=== PATIENT | male | born 1975 | race Caucasian/White ===

== ENCOUNTER 2016-07-27 17:55 | Emergency (ER) | payer BC ==
[~2016-07-27] VITALS: Ht 190.5 cm; Wt 90.9 kg
[~2016-07-27 17:55] MED LIST: HYDR-971 PO
[2016-07-27 18:06] VITALS: BP 140/80
--- NOTE | 2016-07-27 18:32 | PHYS DOC ---
General Chief Complaint: DENTAL PROBLEM Stated Complaint: FACIAL SWELLING Time Seen by MD: 18:24 Source: patient, family Problems: History of Present Illness Initial Comments Patient here for right jaw swelling. Patient says his been present for day and a half. Is getting worse today. Patient does have poor dentition but can't tell if this is a toothache. He says he has increasing pain in the area as well. He has not had any fever or chills. He's had no runny nose or sore throat. He has no earache. He says he does have trouble swallowing or talking, however. He says he has not really been able to eat his been able to drink a small amount of fluids. He says it hurts when he swallows. He denies any neck pain. There's no chest pain or shortness of breath and no nausea or vomiting. According to his , they try to contact with primary care physician a dentist without help today. He's taken ibuprofen at home without help. There is no other increasing or decreasing factors noted. Patient's past nuchal history is remarkable for thyroid cancer. He apparently had what sounds like a nodule removal, but they say "they didn't get it all." He is not currently receiving any chemotherapy or radiation. He is on thyroxine. He smokes a pack of cigarettes daily. He is a nonuser of ethanol. Allergies: Coded Allergies: cyclobenzaprine (Verified Allergy, Unknown, 12/06/15) morphine (Verified Allergy, Unknown, 12/06/15) tramadol (Verified Allergy, Unknown, 12/06/15) Past Medical History Medical History: other Social History Smoker: greater than 1 pack/day Alcohol: none Review of Systems Constitutional: no symptoms reported EENTM: see HPI Respiratory: no symptoms reported Cardiovascular: no symptoms reported Gastrointestinal: no symptoms reported Psychiatric/Neurological: no symptoms reported Physical Exam General Appearance: WD/WN, no apparent distress Ear, Nose, Throat: normal ENT inspection, normal pharynx, other Neck: full range of motion, supple, normal inspection Respiratory: lungs clear, normal breath sounds, no respiratory distress Cardiovascular: regular rate, rhythm, no edema Skin: normal color Lymphatic: no adenopathy Comments Generally this well-developed well-nourished white male in no acute distress. Vitals are as noted. Pertinent findings on physical exam shows ears and throat to be grossly clear. Patient does have some soft tissue swelling and some tenderness over the right mid mandibular region. The patient has very few teeth remaining. Of these, he has grossly carious right lateral incisor, canine, and premolars remaining. These are all tender to tap. There is no signs of periapical abscess. He has central incisor is moderately carious as well. The patient is otherwise, with the exception of a single incisor and left lower jaw , edentulous. There is no dysphagia or dysphonia or problems with secretions noted. Neck is supple and nontender. There is no firmness to the floor the mouth. There is no evidence of bleed weeks. There is no adenopathy. Remainder of physical exam is clinically unremarkable. Orders, Labs, Meds Old charts note occasional ER visits for heel contusion, right arm complaints, and neck pain. I discussed with the patient and the female within most likely diagnosis of dental pain. We'll go and get her started on some appropriate antibiotic. He claims to be allergic to morphine, codeine, tramadol, Toradol. I discussed with the patient and his that this might be difficult to provide some appropriate pain medicine, but I will write a prescription for Demerol tablets. Also started on some penicillin. They do voice understanding need for dental follow-up cannot provide definitive care here in the ED. Patient may certainly return to the ER sooner as needed if worsen anyway. Patient otherwise looks well , in no acute discomfort distress, okay for discharge home at this time. ARLENE LEVIN MD Jul 27, 2016 18:32
== END 2016-07-27 18:42 | disposition home or self-care (01) ==
LOC: ER 17:55
DX: K08.89 Other specified disorders of teeth and supporting structures (principal); R22.0 Localized swelling, mass and lump, head; R13.10 Dysphagia, unspecified; F17.210 Nicotine dependence, cigarettes, uncomplicated; Z88.5 Allergy status to narcotic agent; Z88.6 Allergy status to analgesic agent; Z88.8 Allergy status to other drugs, medicaments and biological substances
CPT/HCPCS: 99283

== ENCOUNTER 2017-02-26 18:51 | Emergency (ER) | payer BC ==
[~2017-02-26] VITALS: Ht 190.5 cm; Wt 90.9 kg
[2017-02-26] MEDS ORDERED: HYDROcodone/APAP 7.5/325MG 1 TAB TABLET PO ONE (19:30)
[2017-02-26 19:34] VITALS: BP 131/93
[2017-02-26] MEDS ORDERED: HYDR-971 PO (20:04)
--- NOTE | 2017-02-26 20:06 | PHYS DOC ---
General Chief Complaint: MECHANICAL FALL Stated Complaint: FALL Time Seen by MD: 19:16 Source: patient Exam Limitations: no limitations Problems: History of Present Illness Initial Comments Patient is a 41-year-old male who comes to the ED complaining of fall injuries. Patient states he was descending a ladder when he missed a step causing him to fall to his back. He states he was only 1-2 rungs from the bottom at the time of fall. He denies head trauma no headache or loss of consciousness he is having some lower neck discomfort primarily located in the right trapezius muscle but there is some in the midline. No swelling or ecchymosis no arm weakness or numbness tingling or radiating discomfort. He also complains of some right shoulder discomfort which is related to the right trapezius muscle as well. Finally he complains of some pain in his tailbone but states this is minimal. He denies low back pain no leg symptoms no saddle anesthesia and no bowel or bladder symptoms. After thorough discussion of his injuries patient is only wanting any imaging done of his neck he states his other complaints are minor. Occurred: this afternoon Severity: moderate Injuries/Pain Location: neck, upper extremity, other Context: slipped Loss of Consciousness: no loss of consciousness Modifying Factors: worse with jarring, worse with movement Associated Symptoms: neck pain, other Allergies: Coded Allergies: cyclobenzaprine (Verified Allergy, Unknown, 12/06/15) ketorolac (Verified Allergy, Unknown, Itching, 02/26/17) morphine (Verified Allergy, Unknown, 12/06/15) tramadol (Verified Allergy, Unknown, 12/06/15) Past Medical History Medical History: other (thyroid cancer) Surgical History: other Social History Smoker: cigarettes Alcohol: none Drugs: none Review of Systems Constitutional: denies chills, denies diaphoresis, denies fever, denies malaise Eyes: denies inflammation, denies photophobia Ears, Nose, Mouth, Throat: denies ear pain, denies ear discharge, denies nose discharge, denies epistaxis Respiratory: denies cough, denies shortness of breath Cardiovascular: denies chest pain, denies palpitations, denies syncope Gastrointestinal: denies abdominal pain, denies nausea, denies vomiting Musculoskeletal: see HPI Psychiatric/Neurological: see HPI Physical Exam General Appearance: WD/WN, no apparent distress Head: no evidence of injury (normocephalic atraumatic negative An sign negative raccoon eyes) Eyes: bilateral eye normal inspection, bilateral eye PERRL, bilateral eye EOMI Ears, Nose, Mouth, Throat: hearing grossly normal, no evidence of ENT injury, no dental injury (very poor dentition, no ear or nose discharge no fluid behind TMs bilaterally) Neck: normal alignment, paraspinous muscle tender, stiff neck Cardiovascular/Respiratory: normal peripheral pulses, normal breath sounds Gastrointestinal: non tender, soft Back: no CVA tenderness, no vertebral tenderness Extremities: no evidence of injury, normal range of motion, non-tender Neurologic/Psychiatric: cardiovascular specialist II-XII nml as tested, no motor/sensory deficits, alert, normal mood/affect, oriented x 3 Mario Coma Score Best Eye Response: (4) open spontaneously Best Verbal Response: (5) oriented Best Motor Response: (6) obeys commands Hines Total: 15 Orders, Labs, Meds Cervical spine: No acute osseous abnormality interpreted by Dr. Tervizo. Departure Time of Disposition: 20:04 Disposition: 01 HOME, SELF-CARE Diagnosis: Fall, Cervical Strain, R Shoulder Strain Condition: GOOD Patient Instructions: Cervical Strain and Sprain with Rehab-SportsMed, Fall Prevention and Home Safety, [id number], RICE - Routine Care for Injuries, Easy -to-Read Additional Instructions: RICE, see handout. Keep activity to "pain-free." Wear sling until doctor follow up. Rx: norco 5mg #15 Take meds with food. Follow up with Dr Akers later this week. Return to ED with new or changing symptoms. ELIZABETH TREVIZO DO Feb 26, 2017 20:06
--- NOTE | 2017-02-27 08:19 | RAD ---
Cervical spine, 3 views, 02/26/2017: History: Fall, cervical pain No fracture or dislocation is identified. There is mild disc space narrowing at C5-6. The prevertebral soft tissues are unremarkable. IMPRESSION: No acute cervical spine abnormality is detected.
== END 2017-02-26 20:34 | disposition home or self-care (01) ==
LOC: ER 18:51
DX: S16.1XXA Strain of muscle, fascia and tendon at neck level, initial encounter (principal); S46.911A Strain of unspecified muscle, fascia and tendon at shoulder and upper arm level, right arm, initial encounter; F17.210 Nicotine dependence, cigarettes, uncomplicated; Z88.5 Allergy status to narcotic agent; Z88.6 Allergy status to analgesic agent; Z88.8 Allergy status to other drugs, medicaments and biological substances; W11.XXXA Fall on and from ladder, initial encounter; Y93.89 Activity, other specified; Y99.8 Other external cause status; Y92.89 Other specified places as the place of occurrence of the external cause
CPT/HCPCS: 72040; 99284

== ENCOUNTER 2017-03-12 19:34 | Emergency (ER) | payer SELFPAY ==
[~2017-03-12] VITALS: Ht 190.5 cm; Wt 86.2 kg
--- NOTE | 2017-03-12 19:52 | ED.ADGEN ---
Past History Past Medical History: Cancer, Constipation, Hypothyroid Past Surgical History: Cancer Surgery, Other Alcohol Use: None Drug Use: None Adult General Chief Complaint Chief Complaint " I get constipation,.. bowel obstruction because of back up stool..." HPI HPI Patient is a 41 year old male who presents with above hx and complaints. constipation and obstipation. Hx Hypothyroid. Follows with Dr. Akers. Ate today small amount. Produced only few small hard stool balls that he had to manually remove. Review of Systems Review of Systems Constitutional: Denies fever or chills [] Eyes: Denies change in visual acuity, redness, or eye pain [] HENT: Denies nasal congestion or sore throat [] Respiratory: Denies cough or shortness of breath [] Cardiovascular: No additional information not addressed in HPI [] GI: Complaints of abdominal pain, nausea, and constipation : Denies dysuria or hematuria [] Musculoskeletal: Denies back pain or joint pain [] Integument: Denies rash or skin lesions [] Neurologic: Denies headache, focal weakness or sensory changes [] Endocrine: Denies polyuria or polydipsia [] All other systems were reviewed and found to be within normal limits, except as documented in this note. Family History Family History Noncontributory Current Medications Current Medications Current Medications Medications (Trade) Dose Ordered Sig/Jermaine Start Time Stop Time Status Last Admin Dose Admin Famotidine (Pepcid Vial) 20 mg 1X ONCE 03/12/17 20:45 03/12/17 20:46 DC 03/12/17 21:08 20 MG Lactated Ringer's 1,000 ml @ 1,000 mls/hr Q1H 03/12/17 20:45 03/12/17 20:52 DC 03/12/17 20:52 1,000 MLS/HR Magnesium Citrate (Citroma) 296 ml 1X ONCE 03/12/17 20:45 03/12/17 20:46 DC 03/12/17 21:09 296 ML Ondansetron HCl (Zofran) 8 mg 1X ONCE 03/12/17 20:45 03/12/17 20:46 DC 03/12/17 21:07 8 MG Allergies Allergies Allergies Coded Allergies Type Severity Reaction Last Updated Verified cyclobenzaprine Allergy Unknown 12/06/15 Yes ketorolac Allergy Unknown Itching 02/26/17 Yes morphine Allergy Unknown 12/06/15 Yes tramadol Allergy Unknown 12/06/15 Yes Physical Exam Physical Exam Constitutional: Well developed, well nourished, no acute distress, non-toxic appearance. [] HENT: Normocephalic, atraumatic, bilateral external ears normal, oropharynx moist, no oral exudates, nose normal. [] Eyes: PERRLA, EOMI, conjunctiva normal, no discharge. [] Neck: Normal range of motion, no tenderness, supple, no stridor. [] Cardiovascular:Heart rate regular rhythm, no murmur [] Lungs & Thorax: Bilateral breath sounds clear to auscultation [] Abdomen: Bowel sounds decreased, soft, generalized tenderness, no masses, no pulsatile masses. Distended. Rectal exam no gross blood. Hard stool noted. Skin: Warm, dry, no erythema, no rash. [] Back: No tenderness, no CVA tenderness. [] Extremities: No tenderness, no cyanosis, no clubbing, ROM intact, no edema. [] No psoas or obturator sign Neurologic: Alert and oriented X 3, normal motor function, normal sensory function, no focal deficits noted. [] Psychologic: Affect normal, judgement normal, mood normal. [] Current Patient Data Vital Signs Vital Signs Date Time Temp Pulse Resp B/P (MAP) Pulse Ox O2 Delivery O2 Flow Rate FiO2 03/12/17 21:30 70 16 128/66 (86) 97 Room Air 03/12/17 19:55 98.1 Lab Results Laboratory Tests Test 03/12/17 20:49 White Blood Count 9.0 x10^3/uL (4.0-11.0) Red Blood Count 4.61 x10^6/uL (4.30-5.70) Hemoglobin 14.8 g/dL (13.0-17.5) Hematocrit 42.5 % (39.0-53.0) Mean Corpuscular Volume 92 fL (79-100) Mean Corpuscular Hemoglobin 32 pg (25-35) Mean Corpuscular Hemoglobin Concent 35 g/dL (31-37) Red Cell Distribution Width 13.6 % (11.5-14.5) Platelet Count 199 x10^3/uL (140-400) Neutrophils (%) (Auto) 70 % (31-73) Lymphocytes (%) (Auto) 20 % (24-48) L Monocytes (%) (Auto) 7 % (0-9) Eosinophils (%) (Auto) 3 % (0-3) Basophils (%) (Auto) 1 % (0-3) Neutrophils # (Auto) 6.3 x10^3uL (1.8-7.7) Lymphocytes # (Auto) 1.8 x10^3/uL (1.0-4.8) Monocytes # (Auto) 0.6 x10^3/uL (0.0-1.1) Eosinophils # (Auto) 0.2 x10^3/uL (0.0-0.7) Basophils # (Auto) 0.0 x10^3/uL (0.0-0.2) Prothrombin Time 10.7 SEC (9.4-11.4) Prothrombin Time INR 1.0 (0.9-1.1) PTT 28 SEC (23-33) Urine Collection Type Void Urine Color Yellow Urine Clarity Clear Urine pH 6.5 Urine Specific [place] 1.020 Urine Protein Neg (NEG-TRACE) Urine Glucose (UA) Neg mg/dL (NEG) Urine Ketones (Stick) Neg mg/dL (NEG) Urine Blood Neg (NEG) Urine Nitrite Neg (NEG) Urine Bilirubin Neg (NEG) Urine Urobilinogen Dipstick 0.2 mg/dL (0.2 mg/dL) Urine Leukocyte Esterase Neg (NEG) Urine RBC Rare /HPF (0-2) Urine WBC Occ /HPF (0-4) Urine Squamous Epithelial Cells None /LPF Urine Bacteria 0 /HPF (0-FEW) Urine Mucus Slight /LPF Sodium Level 140 mmol/L (136-145) Potassium Level 3.9 mmol/L (3.5-5.1) Chloride Level 102 mmol/L (98-107) Carbon Dioxide Level 32 mmol/L (21-32) Anion Gap 6 (6-14) Blood Urea Nitrogen 12 mg/dL (8-26) Creatinine 1.0 mg/dL (0.7-1.3) Estimated GFR (Cockcroft-Gault) 83.2 Glucose Level 97 mg/dL (70-99) Calcium Level 9.1 mg/dL (8.5-10.1) Total Bilirubin 0.4 mg/dL (0.2-1.0) Direct Bilirubin 0.1 mg/dL (0.0-0.2) Aspartate Amino Transferase (AST) 20 U/L (15-37) Alanine Aminotransferase (ALT) 33 U/L (16-63) Alkaline Phosphatase 89 U/L (46-116) Total Protein 7.9 g/dL (6.4-8.2) Albumin 4.0 g/dL (3.4-5.0) Amylase Level 39 U/L (25-115) Lipase 142 U/L (73-393) Urine Opiates Screen Pos (NEG) Urine Methadone Screen Neg (NEG) Urine Barbiturates Neg (NEG) Urine Phencyclidine Screen Neg (NEG) Urine Amphetamine/Methamphetamine Neg (NEG) Urine Benzodiazepines Screen Neg (NEG) Urine Cocaine Screen Neg (NEG) Urine Cannabinoids Screen Neg (NEG) Urine Ethyl Alcohol Neg (NEG) EKG EKG [] Radiology/Procedures Radiology/Procedures My interpretation of abdomen film shows no free air in the diaphragm. Does have extensive stool throughout the colon. Nonspecific bowel gas pattern.[] Course & Med Decision Making Course & Med Decision Making Pertinent Labs and Imaging studies reviewed. (See chart for details). Patient to stay on a clear fluid diet only for the next 2 days. Do not resume a solid diet or milk products until passing stool. Continue the MiraLAX daily if not having adequate stools. Tylenol for discomfort. Follow-up primary care. Consider GI consult. Expect some cramping and diarrhea with the mag citrate tonight. [] Final Impression Final Impression 1. Constipation[]/ Obstipation 2. Abdomen Pain 3. Hypothyroid Problems: Dragon Disclaimer Dragon Disclaimer This electronic medical record was generated, in whole or in part, using a voice recognition dictation system. VIGNESH AKINS MD Mar 12, 2017 19:52
[2017-03-12] MEDS ORDERED: FAMOTIDINE 20 MG/2 ML VIAL IVP ONE (20:45)
[2017-03-12] MEDS ORDERED: MAGNESIUM CITRATE 296 ML SOLUTION. PO ONE (20:45)
[2017-03-12] MEDS ORDERED: ONDANSETRON PF 4 MG/2 ML VIAL. IV ONE (20:45)
[2017-03-12] MEDS ORDERED: IV RINGERS SOLUTION,LACTATED 1,000 ML IV SCH (20:45)
[2017-03-12 21:09] LABS: BASO % 1 % (0-3); EOS # 0.2 x10^3/uL (0.0-0.7); EOS % 3 % (0-3); HEMATOCRIT 42.5 % (39.0-53.0); HEMOGLOBIN 14.8 g/dL (13.0-17.5); LYMPH # 1.8 x10^3/uL (1.0-4.8); LYMPH % 20 % (24-48); MEAN CORPUSCULAR HEMOGLOBIN 32 pg (25-35); MEAN CORPUSCULAR HGB CONC 35 g/dL (31-37); MEAN CORPUSCULAR VOLUME 92 fL (79-100); MONO # 0.6 x10^3/uL (0.0-1.1); MONO % 7 % (0-9); NEUT # 6.3 x10^3uL (1.8-7.7); NEUT % 70 % (31-73); PLATELET COUNT 199 x10^3/uL (140-400); RED BLOOD COUNT 4.61 x10^6/uL (4.30-5.70); RED CELL DISTRIBUTION WIDTH 13.6 % (11.5-14.5)
[2017-03-12 21:19] LABS: AMPHETAMINE/METHAMPHETAMINE NEG (NEG); BARBITURATES NEG (NEG); BENZODIAZEPINES NEG (NEG); CANNABINOIDS NEG (NEG); COCAINE NEG (NEG); METHADONE NEG (NEG); OPIATES POS (NEG); PHENCYCLIDINE NEG (NEG)
[2017-03-12 21:21] LABS: BILIRUBIN,URINE NEG (NEG); CLARITY,URINE CLEAR; COLOR,URINE YELLOW; GLUCOSE,URINE NEG (NEG)
[2017-03-12 21:22] LABS: CALCIUM 9.1 mg/dL (8.5-10.1); DIRECT BILIRUBIN 0.1 mg/dL (0.0-0.2); GFR 83.2; POTASSIUM 3.9 mmol/L (3.5-5.1); TOTAL BILIRUBIN 0.4 mg/dL (0.2-1.0); TOTAL PROTEIN 7.9 g/dL (6.4-8.2)
[2017-03-12 21:23] LABS: BACTERIA,URINE 0 /HPF (0-FEW); NITRITE,URINE NEG (NEG); RBC,URINE RARE /HPF (0-2); UROBILINOGEN,URINE 0.2 mg/dL (0.2 mg/dL); WBC,URINE OCC /HPF (0-4)
[2017-03-12 21:30] VITALS: BP 128/66
[2017-03-12] MEDS ORDERED: POLY119P4 PO (21:45)
--- NOTE | 2017-03-13 08:17 | RAD ---
Acute abdominal series Indication: Abdominal pain, constipation. Technique: Acute abdomen series Comparison: None Findings: Median sternotomy. Heart is normal in size. Lungs are clear. No pneumothorax or pleural effusion. No evidence of free intraperitoneal air. The contours of solid abdominal organs are within normal limits. No abnormally dilated bowel loops or air-fluid levels. No abnormal calcific densities projecting over the kidneys or expected course of the ureter. Visualized osseous structures are within normal limits. Moderate diffuse colonic stool burden. Impression: No abnormally dilated bowel loops to suggest bowel obstruction. Moderate colonic stool burden, patient may be constipated.
== END 2017-03-12 22:05 | disposition home or self-care (01) ==
LOC: ER 19:34
DX: K59.00 Constipation, unspecified (principal); R10.84 Generalized abdominal pain; E03.9 Hypothyroidism, unspecified; Z88.6 Allergy status to analgesic agent; Z88.5 Allergy status to narcotic agent; Z88.8 Allergy status to other drugs, medicaments and biological substances
CPT/HCPCS: 36415; 74022; 80048; 80076; 80307; 81001; 82150; 83690; 85025; 85610; 85730; 96361; 96374; 96375; 99285; J2405; J7120; S0028; G0479

== ENCOUNTER 2017-07-03 02:03 | Emergency (ER) | payer OTHER ==
[~2017-07-03] VITALS: Ht 190.5 cm; Wt 90.9 kg
[~2017-07-03 02:03] MED LIST changes: +POLY119P4 PO
--- NOTE | 2017-07-03 02:46 | PHYS DOC ---
Past History Past Medical History: Cancer, Constipation, Hypothyroid Past Surgical History: Cancer Surgery Alcohol Use: None Drug Use: None Adult General Chief Complaint Chief Complaint: HAND PROBLEM HPI HPI Patient is a 42-year-old gentleman who presents here today secondary to pain to his left hand. Patient reports he was on a put in a window and when the morning with his friend and is from the door window and it slammed on his left hand around his second and third knuckles. Patient has no other complaints. Patient' s tetanus status up-to-date. Patient has some abrasions to his hand that are superficial. Review of systems: Constitutional: Denies fever or chills Eyes: Denies change in visual acuity, redness, or eye pain HENT: Denies nasal congestion or sore throat Respiratory: Denies cough or shortness of breath All other systems were reviewed and found to be within normal limits, except as documented in this note. Physical exam: Constitutional: Well developed, well nourished, no acute distress, non-toxic appearance. HENT: Normocephalic, atraumatic, bilateral external ears normal, nose normal. Eyes: PERRLA, EOMI, conjunctiva normal, no discharge. Neck: Normal range of motion, no tenderness, supple, no stridor. Cardiovascular: Heart rate regular rhythm, Lungs & Thorax: Bilateral breath sounds clear to auscultation Abdomen: No abdominal distention. Skin: Warm, dry, no erythema, no rash. Back: Normal spinal curvature Extremities: No tenderness, no cyanosis, no clubbing, ROM intact, no edema. Neurologic: Alert and oriented X 3, normal motor function, normal sensory function, no focal deficits noted. Psychologic: Affect normal, judgement normal, mood normal. Patient's ER physical exam was most remarkable: Soft tissue swelling of left hand over the second and third knuckles. x-ray as interpreted by ER physician reveals: No acute fracture dislocation of left hand Assessment and plan: 1. 42-year-old gentleman who presents here today secondary to hand injury. Patient's x-rays negative for acute fracture. Patient has soft tissue swelling was likely to contusion. Patient reports took ibuprofen at home already. Patient be discharged home with a splint to assist with the pain and follow-up with his primary care physician. Appendicitis up-to-date Allergies Allergies Allergies Coded Allergies Type Severity Reaction Last Updated Verified cyclobenzaprine Allergy Unknown 12/06/15 Yes ketorolac Allergy Unknown Itching 02/26/17 Yes morphine Allergy Unknown 12/06/15 Yes tramadol Allergy Unknown 12/06/15 Yes EKG EKG [] Radiology/Procedures Radiology/Procedures [] Course & Med Decision Making Course & Med Decision Making Pertinent Labs and Imaging studies reviewed. (See chart for details) [] Dragon Disclaimer Dragon Disclaimer This electronic medical record was generated, in whole or in part, using a voice recognition dictation system. Departure Departure: Impression: Primary Impression: Contusion of left hand Disposition: HOME, SELF-CARE Condition: IMPROVED Referrals: RISHI JORGENSEN MD (PCP) Patient Instructions: Hand Contusion Additional Instructions: Continue taking ibuprofen as needed for pain. Wear your Velcro splint as needed for comfort. YUNG SEGURA MD Jul 03, 2017 02:46
[2017-07-03 02:50] VITALS: BP 128/84
--- NOTE | 2017-07-03 07:14 | RAD ---
Left hand, 3 views, 07/03/2017: History: Hand injury, pain No acute fracture or dislocation is identified. IMPRESSION: No acute bony abnormality is detected.
== END 2017-07-03 02:58 | disposition home or self-care (01) ==
LOC: ER 02:03
DX: S60.222A Contusion of left hand, initial encounter (principal); E03.9 Hypothyroidism, unspecified; Z88.6 Allergy status to analgesic agent; Z88.5 Allergy status to narcotic agent; Z88.8 Allergy status to other drugs, medicaments and biological substances; W22.8XXA Striking against or struck by other objects, initial encounter; Y93.89 Activity, other specified; Y99.8 Other external cause status; Y92.89 Other specified places as the place of occurrence of the external cause
CPT/HCPCS: 73130; 99284

== ENCOUNTER 2017-08-29 12:31 | Emergency (ER) | payer OTHER ==
[~2017-08-29] VITALS: Ht 190.5 cm; Wt 88.0 kg
[2017-08-29 12:49] VITALS: BP 129/81
--- NOTE | 2017-08-29 13:15 | RAD ---
INDICATION: Hand pain, caught in a door. TECHNIQUE: 3 views of the left hand are submitted for review. Comparison is from July 03, 2017. FINDINGS:There is no fracture or dislocation. There is no soft tissue swelling. IMPRESSION: Negative for fracture. Electronically signed by: Sarmad Mcpherson MD (08/29/2017 1:12 PM) [id number]
--- NOTE | 2017-08-29 13:28 | PHYS DOC ---
Past History Past Medical History: Cancer Past Surgical History: Other Alcohol Use: None Drug Use: None Adult General Chief Complaint Chief Complaint: HAND Injury HPI HPI 42 yo patient presents the emergency department after injuring his hand for 5 days ago by catching it in a car door. He has a pain in his hand that is sharp shooting and without alleviating factors. He reports normal sensation and motor function of the hand. He reports his finger is a little "off". Review of systems is negative for any wrist or elbow pain proximally. He denies chest pain or shortness of breath. All other review of systems is negative unless otherwise noted in history of present illness. ED course: 42-year-old male presenting after injuring his hand in a car door. On examination, the patient has good strength on abduction and adduction of the left fifth phalanx. The patient has normal flexion and extension at the metacarpophalangeal joint, distal interphalangeal joint and proximal interphalangeal joint independently. The patient's fifth phalanx mildly deviates to the ulnar side more when compared to his right hand. When the patient closes his fist all of his fingernails point to the scaphoid congruently and in parallel. There is no laxity in the fifth finger in any direction at the metacarpophalangeal joint or distal or proximal interphalangeal joint. X-rays were obtained which showed no acute fracture or dislocation. The patient has been examined and was not found to have an emergency medical condition. The patient was then discharged home in stable condition to follow up with their primary care physician over the next 2-3 days. They were to return if their symptoms worsened or if they were concerned for any reason. [id number] discharge instructions and return precautions were given. Patient's questions were answered to their satisfaction. Patient is comfortable with plan. Review of Systems Review of Systems SEE ABOVE. Allergies Allergies Allergies Coded Allergies Type Severity Reaction Last Updated Verified cyclobenzaprine Allergy Unknown 12/06/15 Yes ketorolac Allergy Unknown Itching 02/26/17 Yes morphine Allergy Unknown 12/06/15 Yes tramadol Allergy Unknown 12/06/15 Yes Physical Exam Physical Exam SEE ABOVE Constitutional: Well developed, well nourished, no acute distress, non-toxic appearance. HENT: Normocephalic, atraumatic, bilateral external ears normal, oropharynx moist, no oral exudates, nose normal. [] Eyes: PERRLA, EOMI, conjunctiva normal, no discharge. [] Neck: Normal range of motion, no tenderness, supple, no stridor. Cardiovascular:Heart rate regular rhythm, no murmur [] Lungs & Thorax: Bilateral breath sounds clear to auscultation [] Abdomen: Bowel sounds normal, soft, no tenderness, no masses, no pulsatile masses. Skin: Warm, dry, no erythema, no rash. [] Back: No tenderness, no CVA tenderness. Extremities: see above , patient's left hand has normal motor and sensory function. 2 second cap refill. No deformity lacerations abrasions or ecchymosis. Neurologic: Alert and oriented X 3, normal motor function, normal sensory function, no focal deficits noted. [] Psychologic: Affect normal, judgement normal, mood normal. [] Current Patient Data Vital Signs Vital Signs Date Time Temp Pulse Resp B/P (MAP) Pulse Ox O2 Delivery O2 Flow Rate FiO2 18 12:49 97.1 71 18 129/81 (97) 98 Room Air EKG EKG [] Radiology/Procedures Radiology/Procedures [] Course & Med Decision Making Course & Med Decision Making Pertinent Labs and Imaging studies reviewed. (See chart for details) [] Dragon Disclaimer Dragon Disclaimer This electronic medical record was generated, in whole or in part, using a voice recognition dictation system. Departure Departure: Impression: Primary Impression: Left hand pain Disposition: HOME, SELF-CARE Condition: STABLE Referrals: RISHI JORGENSEN MD (PCP) Patient Instructions: Hand Injuries, [id number] Additional Instructions: Thank you for allowing us to participate in your care today. Followup with your primary care physician in 3 days if your symptoms do not improve. Call your Primary Doctor tomorrow and inform them of your visit today. If you do not have a primary care provider you can ask for a list of our primary care providers. Return to the emergency department you have any new or concerning findings. This should be evaluated by the primary care physician and any necessary consulting services for continued management within a few days after discharge. Return to emergency room if you have any new or concerning symptoms including but not limited to fever, chills, nausea, vomiting, intractable pain, any new rashes, chest pain, shortness of air, uncontrolled bleeding, difficulty breathing, and/or vision loss. If at any time, you are having difficulty getting into your primary care doctor or a specialist, return to the emergency department. MONTSE RODRIGUEZ MD August 29, 2017 13:28
== END 2017-08-29 13:34 | disposition home or self-care (01) ==
LOC: ER 12:31
DX: M79.642 Pain in left hand (principal); Z88.8 Allergy status to other drugs, medicaments and biological substances; Z88.5 Allergy status to narcotic agent; Z88.6 Allergy status to analgesic agent; W23.0XXA Caught, crushed, jammed, or pinched between moving objects, initial encounter; Y93.89 Activity, other specified; Y99.8 Other external cause status; Y92.89 Other specified places as the place of occurrence of the external cause
CPT/HCPCS: 73130; 99284

== ENCOUNTER 2017-09-24 18:00 | Emergency (ER) | payer OTHER ==
[~2017-09-24] VITALS: Ht 190.5 cm; Wt 90.9 kg
--- NOTE | 2017-09-24 18:17 | ED.ADGEN ---
Past History Past Medical History: Cancer Past Surgical History: Other Alcohol Use: None Drug Use: None Adult General Chief Complaint Chief Complaint " .. I have bad teeth.. I know.. but I have not been able to get in to get them pulled.." HPI HPI Patient is a 42 year old male who presents with above hx and dental pain patient has several incisor teeth that are rotten to the gums. These areas of most discomfort. Patient currently rating his pain as 8 out of 10. Has been seen previously in the emergency department for this complaint. Patient denies any history of immunosuppression. Patient denies any trismus. Patient in past followed with Dr. Akers. 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 Patient does continue to smoke approximately 1 pack per day. Review of Systems Review of Systems Constitutional: Denies fever or chills [] Eyes: Denies change in visual acuity, redness, or eye pain [] HENT: Denies nasal congestion or sore throat []complaints of dental pain Respiratory: Denies cough or shortness of breath [] Cardiovascular: No additional information not addressed in HPI [] GI: Denies abdominal pain, nausea, vomiting, bloody stools or diarrhea [] : Denies dysuria or hematuria [] Musculoskeletal: Denies back pain or joint pain [] Integument: Denies rash or skin lesions [] Neurologic: Denies headache, focal weakness or sensory changes [] Endocrine: Denies polyuria or polydipsia [] All other systems were reviewed and found to be within normal limits, except as documented in this note. Family History Family History Noncontributory Current Medications Current Medications See nursing for home meds Allergies Allergies Allergies Coded Allergies Type Severity Reaction Last Updated Verified cyclobenzaprine Allergy Unknown 12/06/15 Yes diphenhydramine Allergy Unknown 09/24/17 Yes ketorolac Allergy Unknown Itching 02/26/17 Yes meloxicam Allergy Unknown 09/24/17 Yes tramadol Allergy Unknown 12/06/15 Yes Physical Exam Physical Exam Constitutional: Moderately acute distress, non-toxic appearance. [] HENT: Normocephalic, atraumatic, bilateral external ears normal, oropharynx moist, no oral exudates, nose normal. []Multiple dental caries-ray localizes pain to teeth 28, 26/25/24 in 23. No adenopathy. No pointing abscesses. Eyes: PERRLA, EOMI, conjunctiva normal, no discharge. [] Neck: Normal range of motion, no tenderness, supple, no stridor. [] Surgical scar. Cardiovascular:Heart rate regular rhythm, no murmur [] Lungs & Thorax: Bilateral breath sounds equal at apexes with scattered wheezes. Auscultation []midline surgical scar. Abdomen: Bowel sounds normal, soft, no tenderness, no masses, no pulsatile masses. [] Skin: Warm, dry, no erythema, no rash. [] Back: No tenderness, no CVA tenderness. [] Extremities: No tenderness, no cyanosis, no clubbing, ROM intact, no edema. [] Neurologic: Alert and oriented X 3, normal motor function, normal sensory function, no focal deficits noted. [] Psychologic: Affect anxious, judgement normal, mood normal. [] Current Patient Data Vital Signs Vital Signs Date Time Temp Pulse Resp B/P (MAP) Pulse Ox O2 Delivery O2 Flow Rate FiO2 09/24/17 18:55 93 16 98 09/24/17 18:15 97.7 Room Air EKG EKG [] Radiology/Procedures Radiology/Procedures [] Course & Med Decision Making Course & Med Decision Making Pertinent Labs and Imaging studies reviewed. (See chart for details) Encourage patient to stop smoking. Encouraged patient to follow-up with oral surgery or dentist. Patient should consider follow-up oral surgery and or dental school at [facility]. Take Keflex 500 x3 times a day. Take Tylenol and ibuprofen for pain. Follow-up primary care. [] Final Impression Final Impression 1. Dental Pain[]-dental caries 2. Tobacco use Dragon Disclaimer Dragon Disclaimer This electronic medical record was generated, in whole or in part, using a voice recognition dictation system. VIGNESH AKINS MD Sep 24, 2017 18:17
[2017-09-24] MEDS ORDERED: HYDR-79 PO (18:52)
[2017-09-24] MEDS ORDERED: CEPH-264 PO (18:52)
[2017-09-24 18:55] VITALS: BP 118/68
== END 2017-09-24 19:00 | disposition home or self-care (01) ==
LOC: ER 18:00
DX: K02.9 Dental caries, unspecified (principal); Z72.0 Tobacco use; Z88.6 Allergy status to analgesic agent; Z88.8 Allergy status to other drugs, medicaments and biological substances
CPT/HCPCS: 99283

== ENCOUNTER 2017-10-28 00:31 | Emergency (ER) | payer OTHER ==
[~2017-10-28] VITALS: Ht 190.5 cm; Wt 85.0 kg
[~2017-10-28 00:31] MED LIST changes: +CEPH-264 PO; +HYDR-79 PO
--- NOTE | 2017-10-28 01:04 | PHYS DOC ---
Past History Past Medical History: Cancer Past Surgical History: Other Alcohol Use: None Drug Use: None Adult General Chief Complaint Chief Complaint: FINGER INJURY HPI HPI Patient is a 42 year old male who presents with left 5th finger injury. Pt states he accidentally slammed his left pinky finger in the shed at approximately 5 PM today. Patient is right-handed. Patient states still throbs despite home remedies needs here for further evaluation and management. Review of Systems Review of Systems Constitutional: Denies fever or chills [] Eyes: Denies change in visual acuity, redness, or eye pain [] HENT: Denies nasal congestion or sore throat [] Respiratory: Denies cough or shortness of breath [] Cardiovascular: No additional information not addressed in HPI [] GI: Denies abdominal pain, nausea, vomiting, bloody stools or diarrhea [] : Denies dysuria or hematuria [] Musculoskeletal: Denies back pain or joint pain [] Integument: Denies rash or skin lesions [] Neurologic: Denies headache, focal weakness or sensory changes [] Endocrine: Denies polyuria or polydipsia [] All other systems were reviewed and found to be within normal limits, except as documented in this note. Allergies Allergies Allergies Coded Allergies Type Severity Reaction Last Updated Verified cyclobenzaprine Allergy Unknown 12/06/15 Yes diphenhydramine Allergy Unknown 09/24/17 Yes ketorolac Allergy Unknown Itching 02/26/17 Yes meloxicam Allergy Unknown 09/24/17 Yes tramadol Allergy Unknown 12/06/15 Yes Physical Exam Physical Exam Constitutional: Well developed, well nourished, no acute distress, non-toxic appearance. [] HENT: Normocephalic, atraumatic, bilateral external ears normal, oropharynx moist, no oral exudates, nose normal. [] Eyes: PERRLA, EOMI, conjunctiva normal, no discharge. [] Neck: Normal range of motion, no tenderness, supple, no stridor. [] Cardiovascular:Heart rate regular rhythm, no murmur [] Lungs & Thorax: Bilateral breath sounds clear to auscultation [] Abdomen: Bowel sounds normal, soft, no tenderness, no masses, no pulsatile masses. [] Skin: Warm, dry, no erythema, no rash. [] Back: No tenderness, no CVA tenderness. [] Extremities: Tenderness with mild swelling and mild lateral deviation of the left pinky finger proximal more so than distal tenderness, no cyanosis, no clubbing, ROM intact, no edema. [] Neurologic: Alert and oriented X 3, normal motor function, normal sensory function, no focal deficits noted. [] Psychologic: Affect normal, judgement normal, mood normal. [] Current Patient Data Vital Signs Vital Signs Date Time Temp Pulse Resp B/P (MAP) Pulse Ox O2 Delivery O2 Flow Rate FiO2 10/28/17 00:31 97.7 74 18 99 EKG EKG [] Radiology/Procedures Radiology/Procedures left hand - possibly nondisplaced prox phalanx fracture [vs normal variant][] Course & Med Decision Making Course & Med Decision Making Pertinent Labs and Imaging studies reviewed. (See chart for details) [] Dragon Disclaimer Dragon Disclaimer This electronic medical record was generated, in whole or in part, using a voice recognition dictation system. Departure Departure: Impression: Primary Impression: Phalanx, proximal fracture of finger Disposition: HOME, SELF-CARE Condition: STABLE Referrals: RISHI JORGENSEN MD (PCP) Patient Instructions: Finger Fracture (Phalangeal)-[facility] Scripts Hydrocodone Bit/Acetaminophen (NORCO 5-325 TABLET) 1 Each Tablet 1 TAB PO TID for pain, #10 TAB Prov: SAMARIA LITTLE MD 10/28/17 SAMARIA LITTLE MD Oct 28, 2017 01:04
[2017-10-28] MEDS ORDERED: HYDR-971 PO (01:16)
[2017-10-28 01:25] VITALS: BP 128/86
--- NOTE | 2017-10-28 02:29 | RAD ---
EXAM: Left fifth finger 3 views. HISTORY: Left fifth finger pain after shutting in door. COMPARISON: None. FINDINGS: No fractures are identified acutely. There appears to be a chronic healed fracture of the fifth metacarpal. 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 IMPRESSION: 1. No fracture. Electronically signed by: Janey Lovelace MD (10/28/2017 2:26 AM) [facility]
== END 2017-10-28 01:25 | disposition home or self-care (01) ==
LOC: ER 00:31
DX: S62.647A Nondisplaced fracture of proximal phalanx of left little finger, initial encounter for closed fracture (principal); Z88.6 Allergy status to analgesic agent; Z88.8 Allergy status to other drugs, medicaments and biological substances; W22.8XXA Striking against or struck by other objects, initial encounter; Y93.89 Activity, other specified; Y99.8 Other external cause status; Y92.89 Other specified places as the place of occurrence of the external cause
CPT/HCPCS: 29130; 73140; 99284

== ENCOUNTER 2017-11-28 02:33 | Emergency (ER) | payer OTHER ==
[~2017-11-28] VITALS: Ht 190.5 cm; Wt 81.6 kg
[2017-11-28 02:53] VITALS: BP 139/99
[2017-11-28] MEDS ORDERED: NAPR-514 PO (03:12)
--- NOTE | 2017-11-28 03:12 | PHYS DOC ---
Past History Past Medical History: Cancer Past Surgical History: Other Alcohol Use: None Drug Use: None Adult General Chief Complaint Chief Complaint: HEADACHE HPI HPI Patient is a 42 year old male who presents with complaint of headache. Patient states that his headache started 2 days ago. Patient states he weaned down in front of his front door after he dropped his keys and states that when he came back He accidentally hit the back of his head on his doorknob. Patient denied loss of consciousness. Patient states since hitting the back of his head, he has been having a bitemporal headache that seems to originate from the back of his head. Patient denies any associated vision loss, difficulty with speech or swallowing, loss of coordination, or loss of balance since hitting his head. Patient states that he has been taking Tylenol during the daytime which temporarily helps of this headache. Patient states that his headache has been worsening at night time which has made it difficult for him to sleep. Patient rates his pain currently as 8 out of 10. The patient states that he has not taken any other medications for his symptoms. Review of Systems Review of Systems Constitutional: Denies fever or chills [] Eyes: Denies change in visual acuity, redness, or eye pain [] HENT: Denies nasal congestion or sore throat [] Respiratory: Denies cough or shortness of breath [] Cardiovascular: Denies chest pain or edema[] GI: Denies abdominal pain, nausea, vomiting, bloody stools or diarrhea [] : Denies dysuria or hematuria [] Musculoskeletal: Denies back pain or joint pain [] Integument: Denies rash or skin lesions [] Neurologic: Headache, denies focal weakness or sensory changes [] All other systems were reviewed and found to be within normal limits, except as documented in this note. Allergies Allergies Allergies Coded Allergies Type Severity Reaction Last Updated Verified cyclobenzaprine Allergy Unknown 11/28/17 Yes diphenhydramine Allergy Unknown 11/28/17 Yes ketorolac Allergy Unknown Itching 11/28/17 Yes meloxicam Allergy Unknown 11/28/17 Yes tramadol Allergy Unknown 11/28/17 Yes Physical Exam Physical Exam Constitutional: Well developed, well nourished, no acute distress, non-toxic appearance. [] HENT: Normocephalic, atraumatic, mild occipital tenderness to palpation, bilateral external ears normal, oropharynx moist, no oral exudates, nose normal. [] Eyes: PERRLA, EOMI, conjunctiva normal, no discharge. [] Neck: Normal range of motion, no tenderness, supple, no stridor. [] Cardiovascular:Heart rate regular rhythm, no murmur [] Lungs & Thorax: Bilateral breath sounds clear to auscultation [] Abdomen: Bowel sounds normal, soft, no tenderness, no masses, no pulsatile masses. [] Skin: Warm, dry, no erythema, no rash. [] Back: No tenderness, no CVA tenderness. [] Extremities: No tenderness, no cyanosis, no clubbing, ROM intact, no edema. [] Neurologic: Alert and oriented X 3, normal motor function, normal sensory function, no focal deficits noted. [] Current Patient Data Vital Signs Vital Signs Date Time Temp Pulse Resp B/P (MAP) Pulse Ox O2 Delivery O2 Flow Rate FiO2 11/28/17 02:53 97.6 72 16 139/99 (112) 98 Room Air Lab Results Not performed EKG EKG Not performed[] Radiology/Procedures Radiology/Procedures Not performed[] Course & Med Decision Making Course & Med Decision Making Pertinent Labs and Imaging studies reviewed. (See chart for details) The patient's exam is mostly benign with the exception of mild tenderness along the occipital scalp. Patient's symptoms appear consistent with a tension headache. Mechanism of injury does not cause immediate concern for severe head injury and patient's exam shows no signs concerning for intracranial hemorrhage. The patient was given naproxen for treatment of headache. Patient advised to continue on naproxen and Tylenol for outpatient treatment. Recommended oral hydration and follow up with primary doctor in the next 3-4 days if symptoms are not improving. Advised return to emergency department for any worsening symptoms. Patient was understanding and in agreement with treatment plan. Dragon Disclaimer Dragon Disclaimer This electronic medical record was generated, in whole or in part, using a voice recognition dictation system. Departure Departure: Impression: Primary Impression: Tension headache Disposition: 01 HOME, SELF-CARE Condition: STABLE Referrals: PCP,UNKNOWN (PCP) Patient Instructions: Tension Headache Additional Instructions: Follow-up with your primary doctor in 3-4 days if symptoms are not improving. Return to the emergency department for any worsening symptoms. Scripts Naproxen (NAPROXEN) 500 Mg Tablet 1 TAB PO BID PRN for PAIN, #20 TAB 0 Refills Prov: FOLAND,ERIN J MD 11/28/17 ERIN SAEED MD Nov 28, 2017 03:12
[2017-11-28] MEDS ORDERED: ACETAMINOPHEN 325 MG TABLET PO ONE (03:15)
[2017-11-28] MEDS ORDERED: NAPROXEN 500 MG TABLET PO ONE (03:15)
== END 2017-11-28 03:49 | disposition home or self-care (01) ==
LOC: ER 02:33
DX: G44.209 Tension-type headache, unspecified, not intractable (principal); Z88.8 Allergy status to other drugs, medicaments and biological substances; Z88.6 Allergy status to analgesic agent; W22.8XXA Striking against or struck by other objects, initial encounter; Y93.89 Activity, other specified; Y92.89 Other specified places as the place of occurrence of the external cause; Y99.8 Other external cause status
CPT/HCPCS: 99283

== ENCOUNTER 2017-12-24 13:27 | Emergency (ER) | payer OTHER ==
[~2017-12-24] VITALS: Ht 190.5 cm; Wt 85.7 kg
[~2017-12-24 13:27] MED LIST changes: +NAPR-514 PO
[2017-12-24 13:30] VITALS: BP 165/100
[2017-12-24] MEDS ORDERED: ACETAMINOPHEN 325 MG TABLET PO ONE (14:00)
--- NOTE | 2017-12-24 14:15 | PHYS DOC ---
Past History Past Medical History: High Cholesterol, Hypothyroid Past Surgical History: No Surgical History Alcohol Use: None Drug Use: None Adult General Chief Complaint Chief Complaint: right flank pain HPI HPI This is a pleasant 42-year-old male presenting to the emergency department today with right flank pain. The pain as a sharp shooting pain that radiates into the testicle. He denies fevers chills. He denies chest pain or belly pain. Review of systems is negative for nausea vomiting fevers or chills. All other review of systems is negative unless otherwise noted in history of present illness. ED course: 42-year-old male presenting with right-sided flank pain. On arrival he is afebrile with a normal heart rate. Saturating well on room air. Mild right CVA tenderness. Testicles are normal in appearance. Abdomen is soft and nontender. Negative McBurney's point. Blood work sent along with CT abdomen pelvis. Workup is unremarkable.The patient has been examined and was not found to have an emergency medical condition. The patient was then discharged home in stable condition to follow up with their primary care physician over the next 2- 3 days. They were to return if their symptoms worsened or if they were concerned for any reason. They were also instructed to return to the emergency department if they were unable to get the recommended and appropriate follow- up. [id number] discharge instructions and return precautions were given. Patient's questions were answered to their satisfaction. Patient is comfortable with plan. Review of Systems Review of Systems SEE ABOVE. Current Medications Current Medications Current Medications Medications (Trade) Dose Ordered Sig/[facility] Start Time Stop Time Status Last Admin Dose Admin Acetaminophen (Tylenol) 650 mg 1X ONCE 12/24/17 14:00 12/24/17 14:01 DC Allergies Allergies Allergies Coded Allergies Type Severity Reaction Last Updated Verified cyclobenzaprine Allergy Unknown 11/28/17 Yes diphenhydramine Allergy Unknown 11/28/17 Yes ketorolac Allergy Unknown Itching 11/28/17 Yes meloxicam Allergy Unknown 11/28/17 Yes tramadol Allergy Unknown 11/28/17 Yes Physical Exam Physical Exam Constitutional: Well developed, well nourished, no acute distress, non-toxic appearance. [] HENT: Normocephalic, atraumatic, bilateral external ears normal, oropharynx moist, no oral exudates, nose normal. [] Eyes: PERRLA, EOMI, conjunctiva normal, no discharge. [] Neck: Normal range of motion, no tenderness, supple, no stridor. [] Cardiovascular:Heart rate regular rhythm, no murmur [] Lungs & Thorax: Bilateral breath sounds clear to auscultation [] Abdomen: Bowel sounds normal, soft, no tenderness, no masses, no pulsatile masses. [] gu exam above Skin: Warm, dry, no erythema, no rash. [] Back: above Extremities: No tenderness, no cyanosis, no clubbing, ROM intact, no edema. [] Neurologic: Alert and oriented X 3, normal motor function, normal sensory function, no focal deficits noted. [] Psychologic: Affect normal, judgement normal, mood normal. [] EKG EKG [] Radiology/Procedures Radiology/Procedures [] Course & Med Decision Making Course & Med Decision Making Pertinent Labs and Imaging studies reviewed. (See chart for details) [] Dragon Disclaimer Dragon Disclaimer This electronic medical record was generated, in whole or in part, using a voice recognition dictation system. Departure Departure: Impression: Primary Impression: Right flank pain Disposition: HOME, SELF-CARE Condition: STABLE Referrals: PCPJAIME (PCP) Patient Instructions: Flank Pain, [id number] Additional Instructions: Thank you for allowing us to participate in your care today. Return to the emergency department you have any new or worsening symptoms, or if you are concerned for any reason. Return to emergency department if you have any new or concerning symptoms including but not limited to fever, chills, nausea, vomiting, intractable pain, any new rashes, chest pain, shortness of air , uncontrolled bleeding, difficulty breathing, and/or vision loss. Follow up with your primary care physician within 3 days. Call your Primary Doctor tomorrow and inform them of your visit today. If you do not have a primary care provider we are happy to provide you with a list of our primary care providers contact information. This condition should be evaluated by your primary care physician and any recommended consulting services for continued management within 2-3 days after discharge. If at any time, you are having difficulty getting into your primary care doctor or a specialist, return to the emergency department. MONTSE RODRIGUEZ MD Dec 24, 2017 14:15
[2017-12-24 14:32] LABS: BASO % 0 % (0-3); EOS # 0.1 x10^3/uL (0.0-0.7); EOS % 1 % (0-3); HEMATOCRIT 43.8 % (39.0-53.0); HEMOGLOBIN 15.2 g/dL (13.0-17.5); LYMPH # 1.3 x10^3/uL (1.0-4.8); LYMPH % 17 % (24-48); MEAN CORPUSCULAR HEMOGLOBIN 31 pg (25-35); MEAN CORPUSCULAR HGB CONC 35 g/dL (31-37); MEAN CORPUSCULAR VOLUME 90 fL (79-100); MONO # 0.4 x10^3/uL (0.0-1.1); MONO % 5 % (0-9); NEUT # 5.8 x10^3uL (1.8-7.7); NEUT % 77 % (31-73); PLATELET COUNT 217 x10^3/uL (140-400); RED BLOOD COUNT 4.85 x10^6/uL (4.30-5.70); RED CELL DISTRIBUTION WIDTH 13.8 % (11.5-14.5); WHITE BLOOD COUNT 7.6 x10^3/uL (4.0-11.0)
[2017-12-24 14:41] LABS: BILIRUBIN,URINE NEG (NEG); COLOR,URINE YELLOW; GLUCOSE,URINE NEG (NEG); NITRITE,URINE NEG (NEG); UROBILINOGEN,URINE 0.2 mg/dL (0.2 mg/dL)
[2017-12-24 14:42] LABS: BACTERIA,URINE FEW /HPF (0-FEW); CLARITY,URINE HAZY; SQUAMOUS EPITHELIAL CELL,UR OCC /LPF
[2017-12-24 14:45] LABS: ALBUMIN 4.1 g/dL (3.4-5.0); ALBUMIN/GLOBULIN RATIO 1.2 (1.0-1.7); CALCIUM 9.1 mg/dL (8.5-10.1); CREATININE 1.1 mg/dL (0.7-1.3); GFR 74.1; TOTAL BILIRUBIN 0.6 mg/dL (0.2-1.0); TOTAL PROTEIN 7.6 g/dL (6.4-8.2)
--- NOTE | 2017-12-24 15:41 | RAD ---
CT abdomen pelvis without intravenous contrast History: Abdominal pain. Hematochezia. Comparison: None. Technique: CT of the abdomen and pelvis was performed without intravenous or oral contrast. Exposure: One or more of the following individualized dose reduction techniques were utilized for this examination: 1. Automated exposure control 2. Adjustment of the mA and/or kV according to patient size 3. Use of iterative reconstruction technique Findings: Evaluation of solid organs is limited by lack of intravenous contrast. Evaluation of enteric structures may be limited by lack of oral contrast. Liver, spleen, pancreas, gallbladder, and bilateral adrenal glands are unremarkable. The right kidney demonstrates approximately 7 nonobstructive nephroliths ranging in size from punctate to 3 mm. The left kidney demonstrates approximately 5 punctate nonobstructive nephroliths. Both ureters are free of stone or obstruction. Calcifications in the left hemipelvis are favored to be phleboliths. The urinary bladder is not well-distended with urine. There may be wall thickening of urinary bladder versus artifact lack of distention. Appendix is without evidence of inflammation. No bowel obstruction is seen. No convincing bowel inflammation is identified, although evaluation is limited by lack of oral and intravenous contrast. No free air or free fluid is seen in the abdomen or pelvis.. Impression: 1. No bowel obstruction or convincing bowel inflammation is identified given limitations of study. 2. Nonobstructive bilateral nephrolithiasis. 3. The urinary bladder is not well-distended with urine. There may be mild wall thickening of the urinary bladder versus artifact of lack of distention. Correlate with any possibility of cystitis. Electronically signed by: Vivek Ferrer MD (12/24/2017 3:38 PM) [place] [id number]
[2017-12-24] MEDS ORDERED: CIPR500T94 PO (22:14)
[2017-12-24] MEDS ORDERED: HYDR-79 PO (22:14)
== END 2017-12-24 16:05 | disposition home or self-care (01) ==
LOC: ER 13:27
DX: R10.9 Unspecified abdominal pain (principal); E78.00 Pure hypercholesterolemia, unspecified; E03.9 Hypothyroidism, unspecified; Z88.6 Allergy status to analgesic agent; Z88.8 Allergy status to other drugs, medicaments and biological substances
CPT/HCPCS: 36415; 74176; 80053; 81001; 83690; 85025; 99285-25

== ENCOUNTER 2017-12-24 19:49 | Emergency (ER) | payer OTHER ==
[~2017-12-24] VITALS: Ht 190.5 cm; Wt 85.0 kg
--- NOTE | 2017-12-24 19:54 | ED.ADGEN ---
Past History Past Medical History: Cancer, Hypothyroid Past Surgical History: Other Alcohol Use: None Drug Use: None Adult General Chief Complaint Chief Complaint "I ve been hurting for three days now.. it much worse tonight.. I was here earlier.. and they worked me up for kidney stone.. but pain in more in my Lt testicle.. or behind it in the spongy like area..." [facility] HPI Patient is a 42 year old male who presents with above hx and complaints of pain. Pt complaints of pain in flanks and down into groin. Pt. rates pain . Pt. earlier CT reviewed with his labs. Pt. denies any problems with defecation. Did have some penile discharge with urination today. No hx bad food, ill contacts, travel or trauma. Pt. on exam tonight seems to localizes his pain to lower groin and lt. testicle. No hernia palpated. Epididymis on left very tender. Does appear to have a hydrocele on the left testicle. Rectal exam had a slightly enlarge prostate which was somewhat boggy and tender. Patient denies any history of STDs. Review of Systems Review of Systems Constitutional: Denies fever or chills [] Eyes: Denies change in visual acuity, redness, or eye pain [] HENT: Denies nasal congestion or sore throat [] Respiratory: Denies cough or shortness of breath [] Cardiovascular: No additional information not addressed in HPI [] GI: Complaints of lower left abdominal pain, nausea and left testicular pain. Denies, vomiting, bloody stools or diarrhea [] : Denies dysuria or hematuria [] Musculoskeletal: Denies back pain or joint pain [] Integument: Denies rash or skin lesions [] Neurologic: Denies headache, focal weakness or sensory changes [] Endocrine: Denies polyuria or polydipsia [] All other systems were reviewed and found to be within normal limits, except as documented in this note. Family History Family History Noncontributory Current Medications Current Medications Current Medications Medications (Trade) Dose Ordered Sig/Jermaine Start Time Stop Time Status Last Admin Dose Admin Ceftriaxone Sodium 1 gm/ Sodium Chloride 50 ml @ 100 mls/hr 1X ONCE 12/24/17 20:45 12/24/17 21:14 UNV Ceftriaxone Sodium (Rocephin) 1 gm 1X ONCE 12/24/17 21:00 12/24/17 21:01 DC 12/24/17 21:03 1 GM Iohexol (Omnipaque 300 Mg/ml) 75 ml 1X ONCE 12/24/17 20:30 12/24/17 20:31 DC 12/24/17 20:23 75 ML Lactated Ringer's 1,000 ml @ 1,000 mls/hr 1X ONCE 12/24/17 20:15 12/24/17 21:14 DC 12/24/17 20:38 1,000 MLS/HR Morphine Sulfate (Morphine 10mg Syringe) 10 mg 1X ONCE 12/24/17 20:15 12/24/17 20:16 DC 12/24/17 20:38 10 MG Ondansetron HCl (Zofran) 8 mg 1X ONCE 12/24/17 20:15 12/24/17 20:16 DC 12/24/17 20:38 8 MG Allergies Allergies Allergies Coded Allergies Type Severity Reaction Last Updated Verified cyclobenzaprine Allergy Unknown 11/28/17 Yes diphenhydramine Allergy Unknown 11/28/17 Yes ketorolac Allergy Unknown Itching 11/28/17 Yes meloxicam Allergy Unknown 11/28/17 Yes tramadol Allergy Unknown 11/28/17 Yes Physical Exam Physical Exam Constitutional: Well developed, well nourished, no acute distress, non-toxic appearance. [] HENT: Normocephalic, atraumatic, bilateral external ears normal, oropharynx moist, no oral exudates, nose normal. [] Eyes: PERRLA, EOMI, conjunctiva normal, no discharge. [] Neck: Normal range of motion, no tenderness, supple, no stridor. [] Cardiovascular:Heart rate regular rhythm, no murmur [] Lungs & Thorax: Bilateral breath sounds clear to auscultation [] Abdomen: Bowel sounds normal, soft, no tenderness, no masses, no pulsatile masses. [] Skin: Warm, dry, no erythema, no rash. [] Back: No tenderness, no CVA tenderness. [] Extremities: No tenderness, no cyanosis, no clubbing, ROM intact, no edema. [] Neurologic: Alert and oriented X 3, normal motor function, normal sensory function, no focal deficits noted. [] Psychologic: Affect normal, judgement normal, mood normal. [] Current Patient Data Lab Results Laboratory Tests Test 12/24/17 20:20 Amylase Level 36 U/L (25-115) Lipase 94 U/L (73-393) EKG EKG [] Radiology/Procedures Radiology/Procedures Reviewed earlier radiograph findings. CT tonight with contrast showed no obvious surgical pathology. Ultrasound of testicles area shows hydrocele. Good flow to the testes.[] Course & Med Decision Making Course & Med Decision Making Pertinent Labs and Imaging studies reviewed. (See chart for details) Clear fluid diet for the next 2 days. Take Cipro 500 twice day for the next 5 days. Take Tylenol and ibuprofen for pain. For marked pain take Vicoprofen up to 4 times a day. If taking Vicoprofen take milk of magnesia 30 mL a day. Follow -up primary care. Return if any concerns. Must follow-up pending labs. [] Final Impression Final Impression 1. Epididymitis 2. Prostatitis[] 3. Lt. Hydrocele Dragon Disclaimer Dragon Disclaimer This electronic medical record was generated, in whole or in part, using a voice recognition dictation system. VIGNESH AKINS MD Dec 24, 2017 19:54
[2017-12-24] MEDS ORDERED: ONDANSETRON PF 4 MG/2 ML VIAL. IV ONE (20:15)
[2017-12-24] MEDS ORDERED: MORPHINE SULFATE 10 MG/ML SYRINGE. SQ ONE (20:15)
[2017-12-24] MEDS ORDERED: IV RINGERS SOLUTION,LACTATED 1,000 ML IV ONE (20:15)
[2017-12-24] MEDS ORDERED: IOHEXOL 300 MG/ML 75 ML VIAL. IV ONE (20:30)
[2017-12-24 20:47] LABS: AMYLASE 36 U/L (25-115); LIPASE 94 U/L (73-393)
--- NOTE | 2017-12-24 20:51 | RAD ---
PQRS Compliance statement: One or more of the following individualized dose reduction techniques were utilized for this examination: 1. Automated exposure control. 2. Adjustment of the mA and/or kV according to patient size. 3. Use of iterative reconstruction technique. Indication:Bilateral flank pain x 2 days, nausea today. TECHNIQUE: CT abdomen and pelvis with IV contrast with multiplanar reformats. COMPARISON: Study from the same day earlier FINDINGS: Heart is normal in size. No pericardial or pleural effusion. Clear lung bases. Liver, spleen, gallbladder, pancreas, adrenals within normal limits. Nonobstructing multiple small stones are seen in the right kidney. No suspicious renal lesion or hydronephrosis. No enlarged retroperitoneal or pelvic adenopathy. No free pelvic fluid or ascites. Normal appendix. No bowel obstruction. No pneumoperitoneum. No suspicious bony lesion. IMPRESSION: 1. Nonobstructing right renal stones. 2. No bowel obstruction. Electronically signed by: Doug Borden DO (12/24/2017 8:48 PM) [facility]
[2017-12-24] MEDS ORDERED: cefTRIAXone IV Push 1 GM VIAL. IVP ONE (21:00)
[2017-12-24 22:10] VITALS: BP 121/69
--- NOTE | 2017-12-24 22:12 | RAD ---
Indication: Left testicular pain TECHNIQUE: Grayscale, color Doppler and spectral waveform images of the bilateral testicles. COMPARISON: None FINDINGS: The right testicle measures 4.7 x 2.8 x 2.2 cm and is homogeneous in echogenicity without focal lesion. The right testicle demonstrates evidence of blood flow. The epididymis is within normal limits. The left testicle measures 4.2 x 2.7 x 2.0 cm and is homogeneous in echogenicity without focal lesion. The left testicle demonstrates evidence of blood flow. The epididymis is within normal limits. Trace left hydrocele. IMPRESSION: 1. No focal testicular lesion. 2. Bilateral testicles demonstrates evidence of blood flow. Electronically signed by: Doug Borden DO (12/24/2017 10:08 PM) [facility]
[2017-12-24] MEDS ORDERED: CIPR500T94 PO (22:14)
[2017-12-24] MEDS ORDERED: HYDR-79 PO (22:14)
== END 2017-12-24 22:21 | disposition home or self-care (01) ==
LOC: ER 19:49
DX: N45.1 Epididymitis (principal); N41.9 Inflammatory disease of prostate, unspecified; N43.3 Hydrocele, unspecified; E03.9 Hypothyroidism, unspecified; Z88.8 Allergy status to other drugs, medicaments and biological substances; Z88.6 Allergy status to analgesic agent
CPT/HCPCS: 36415; 74177; 76870; 82150; 83690; 84443; 87491; 87591; 96372; 96374; 96375; 99285; G0103; J0696; J2270; J2405; J7120; Q9967

== ENCOUNTER 2018-02-05 07:43 | Emergency (ER) | payer OTHER ==
[~2018-02-05] VITALS: Ht 190.5 cm; Wt 85.7 kg
[~2018-02-05 07:43] MED LIST changes: +CIPR500T94 PO
[2018-02-05] MEDS ORDERED: lido (08:18)
[2018-02-05] MEDS ORDERED: METR500T PO (08:18)
--- NOTE | 2018-02-05 08:19 | PHYS DOC ---
Past History Past Medical History: Cancer, Hypothyroid, Kidney Stones Past Surgical History: Other Alcohol Use: None Drug Use: None Adult General Chief Complaint Chief Complaint: DENTAL PROBLEM HPI HPI Patient is a 42-year-old male who presents with complaining of swelling and pain in his mouth after recently having dental extraction. Patient states that he had seen the dentist yesterday and was prescribed amoxicillin and pain pills. He states that the swelling is a bit worse at this time and he was worried that the abscess was getting worse. He denies any fever. He states that the pain pills have been working but today he had to take 2 of him to make them work. Review of Systems Review of Systems Constitutional: Denies fever or chills [] HENT: Complains of dental pain and mouth swelling[] Respiratory: Denies cough or shortness of breath [] Integument: Denies rash or skin lesions [] Neurologic: Denies headache, focal weakness or sensory changes [] Allergies Allergies Allergies Coded Allergies Type Severity Reaction Last Updated Verified cyclobenzaprine Allergy Unknown 11/28/17 Yes diphenhydramine Allergy Unknown 11/28/17 Yes ketorolac Allergy Unknown Itching 11/28/17 Yes meloxicam Allergy Unknown 11/28/17 Yes tramadol Allergy Unknown 11/28/17 Yes Physical Exam Physical Exam Constitutional: Well developed, well nourished, no acute distress, non-toxic appearance. [] HENT: Normocephalic, atraumatic. There is minimal gum swelling around recent extractions. Sutures are in place with no apparent drainage. There is some mucosal swelling on the lower left. [] Eyes: PERRLA, EOMI, conjunctiva normal, no discharge. [] Neck: Normal range of motion, no tenderness, supple, no stridor. [] Cardiovascular:Heart rate regular rhythm [] Lungs & Thorax: Bilateral breath sounds clear to auscultation [] EKG EKG [] Radiology/Procedures Radiology/Procedures [] Course & Med Decision Making Course & Med Decision Making Pertinent Labs and Imaging studies reviewed. (See chart for details) [] Dragon Disclaimer Dragon Disclaimer This electronic medical record was generated, in whole or in part, using a voice recognition dictation system. Departure Departure: Impression: Primary Impression: Post-operative pain Disposition: 01 HOME, SELF-CARE Condition: STABLE Referrals: NON,STAFF (PCP) Patient Instructions: Pain Relief Preoperatively and Postoperatively Scripts [lido] No Conflict Check Prov: CHUY DOTSON Jr. DO 02/05/18 Metronidazole (FLAGYL) 500 Mg Tablet 500 MG PO TID, #30 TAB Prov: CHUY DOTSON Jr. DO 02/05/18 CHUY DOTSON Jr. DO Feb 05, 2018 08:19
[2018-02-05 08:25] VITALS: BP 122/70
== END 2018-02-05 08:30 | disposition home or self-care (01) ==
LOC: ER 07:43
DX: G89.18 Other acute postprocedural pain (principal); K08.89 Other specified disorders of teeth and supporting structures; K13.79 Other lesions of oral mucosa; E03.9 Hypothyroidism, unspecified; Z87.442 Personal history of urinary calculi; Z98.818 Other dental procedure status; Z88.6 Allergy status to analgesic agent; Z88.8 Allergy status to other drugs, medicaments and biological substances
CPT/HCPCS: 99283

== ENCOUNTER 2018-04-16 23:14 | Emergency (ER) | payer SELFPAY ==
[~2018-04-16] VITALS: Ht 190.5 cm; Wt 84.0 kg
[~2018-04-16 23:14] MED LIST changes: +HYDR-1179 PO; +HYDR-3165 PO; -HYDR-79 PO; -HYDR-971 PO; +METR500T PO; +lido
--- NOTE | 2018-04-16 23:20 | ED.ADGEN ---
Past History Past Medical History: Cancer, Hyperthyroid, Other Past Surgical History: Other Past Surgical History Thyroidectomy, removal of cardiac mass Alcohol Use: Occasionally Drug Use: None Adult General Chief Complaint Chief Complaint ".. I ve been having Rt. flank pain for past two days.. I could not sleep well tonight.. because of the pain...." HPI HPI Patient is a 43 year old male who presents with above hx and complaints Rt. flank pain. Patient has been eating normally. Patient has reported normal stools. Patient has somewhat remote history of possible kidney stones. 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 Patient denies any trauma or injury. Patient normally works in [employer]. Patient did drive himself tonight. Patient has multiple allergies. Patient denies any intake bad food. Patient denies any specific ill contacts. Patient normally follows with primary physician. Patient however has had emergency department workups on 02/05, 12/24, 11/28, 10/28, 08/29, and 07/03 , in 2018 for various pain complaints. Frequent ED for pain complaints use maybe represent narcotic seeking behavior. Review of Systems Review of Systems Constitutional: Denies fever or chills [] Eyes: Denies change in visual acuity, redness, or eye pain [] HENT: Denies nasal congestion or sore throat [] Respiratory: Denies cough or shortness of breath [] Cardiovascular: No additional information not addressed in HPI [] GI: Complaints of Rt. flank abdominal pain, nausea. Denies, vomiting, bloody stools or diarrhea [] : Denies dysuria or hematuria [] Musculoskeletal: Denies back pain or joint pain [] Integument: Denies rash or skin lesions [] Neurologic: Denies headache, focal weakness or sensory changes [] Endocrine: Denies polyuria or polydipsia [] All other systems were reviewed and found to be within normal limits, except as documented in this note. Family History Family History Non-contributory Current Medications Current Medications Current Medications Medications (Trade) Dose Ordered Sig/Jermaine Start Time Stop Time Status Last Admin Dose Admin Famotidine (Pepcid Vial) 20 mg 1X ONCE 04/16/18 23:30 04/17/18 01:15 DC 04/17/18 00:10 20 MG Lactated Ringer's 1,000 ml @ 1,000 mls/hr Q1H 04/16/18 23:30 04/17/18 01:15 DC 04/17/18 00:10 1,000 MLS/HR Magnesium Hydroxide (Milk Of Magnesia) 2,400 mg 1X ONCE 04/17/18 01:15 04/17/18 01:16 DC 04/17/18 01:50 2,400 MG Ondansetron HCl (Zofran) 8 mg 1X ONCE 04/16/18 23:30 04/17/18 01:15 DC 04/17/18 00:11 8 MG Allergies Allergies Allergies Coded Allergies Type Severity Reaction Last Updated Verified cyclobenzaprine Allergy Unknown 11/28/17 Yes diphenhydramine Allergy Unknown 11/28/17 Yes ketorolac Allergy Unknown Itching 11/28/17 Yes meloxicam Allergy Unknown 11/28/17 Yes tramadol Allergy Unknown 11/28/17 Yes Physical Exam Physical Exam Constitutional: Patient reports Moderately acute distress, non-toxic appearance. [] HENT: Normocephalic, atraumatic, bilateral external ears normal, oropharynx moist, no oral exudates, nose normal. [] Eyes: PERRLA, EOMI, conjunctiva normal, no discharge. [] Neck: Normal range of motion, no tenderness, supple, no stridor. []Surgery scar. Cardiovascular:Heart rate regular rhythm, no murmur [] Lungs & Thorax: Bilateral breath sounds clear to auscultation []Midline surgery scar. Abdomen: Bowel sounds decreased, soft, Rt flank tenderness, no masses, no pulsatile masses. [] Skin: Warm, dry, no erythema, no rash. [] Back: No tenderness, no CVA tenderness. [] Extremities: No tenderness, no cyanosis, no clubbing, ROM intact, no edema. [] Neurologic: Alert and oriented X 3, normal motor function, normal sensory function, no focal deficits noted. [] Psychologic: Affect anxious, judgement normal, mood normal. [] Current Patient Data Vital Signs Vital Signs Date Time Temp Pulse Resp B/P (MAP) Pulse Ox O2 Delivery O2 Flow Rate FiO2 04/17/18 01:39 84 18 134/89 (104) 97 Room Air 04/16/18 23:14 98.6 Lab Results Laboratory Tests Test 04/16/18 23:25 04/17/18 00:05 Urine Collection Type Unknown Urine Color Yellow Urine Clarity Clear Urine pH 7.0 Urine Specific [place] 1.020 Urine Protein Neg (NEG-TRACE) Urine Glucose (UA) Neg mg/dL (NEG) Urine Ketones (Stick) Neg mg/dL (NEG) Urine Blood Neg (NEG) Urine Nitrite Neg (NEG) Urine Bilirubin Neg (NEG) Urine Urobilinogen Dipstick 1 mg/dL (0.2 mg/dL) Urine Leukocyte Esterase Neg (NEG) Urine RBC 0 /HPF (0-2) Urine WBC Occ /HPF (0-4) Urine Squamous Epithelial Cells Occ /LPF Urine Bacteria 0 /HPF (0-FEW) Urine Opiates Screen Neg (NEG) Urine Methadone Screen Neg (NEG) Urine Barbiturates Neg (NEG) Urine Phencyclidine Screen Neg (NEG) Urine Amphetamine/Methamphetamine Neg (NEG) Urine Benzodiazepines Screen Neg (NEG) Urine Cocaine Screen Neg (NEG) Urine Cannabinoids Screen Neg (NEG) Urine Ethyl Alcohol Neg (NEG) White Blood Count 8.9 x10^3/uL (4.0-11.0) Red Blood Count 4.75 x10^6/uL (4.30-5.70) Hemoglobin 15.4 g/dL (13.0-17.5) Hematocrit 43.7 % (39.0-53.0) Mean Corpuscular Volume 92 fL (79-100) Mean Corpuscular Hemoglobin 33 pg (25-35) Mean Corpuscular Hemoglobin Concent 35 g/dL (31-37) Red Cell Distribution Width 13.5 % (11.5-14.5) Platelet Count 221 x10^3/uL (140-400) Neutrophils (%) (Auto) 67 % (31-73) Lymphocytes (%) (Auto) 24 % (24-48) Monocytes (%) (Auto) 7 % (0-9) Eosinophils (%) (Auto) 2 % (0-3) Basophils (%) (Auto) 1 % (0-3) Neutrophils # (Auto) 6.0 x10^3uL (1.8-7.7) Lymphocytes # (Auto) 2.2 x10^3/uL (1.0-4.8) Monocytes # (Auto) 0.6 x10^3/uL (0.0-1.1) Eosinophils # (Auto) 0.2 x10^3/uL (0.0-0.7) Basophils # (Auto) 0.0 x10^3/uL (0.0-0.2) Prothrombin Time 9.4 SEC (9.4-11.4) Prothrombin Time INR 0.9 (0.9-1.1) PTT 27 SEC (23-33) Sodium Level 139 mmol/L (136-145) Potassium Level 3.9 mmol/L (3.5-5.1) Chloride Level 103 mmol/L (98-107) Carbon Dioxide Level 27 mmol/L (21-32) Anion Gap 9 (6-14) Blood Urea Nitrogen 12 mg/dL (8-26) Creatinine 1.0 mg/dL (0.7-1.3) Estimated GFR (Cockcroft-Gault) 82.3 Glucose Level 126 mg/dL (70-99) H Calcium Level 8.1 mg/dL (8.5-10.1) L Total Bilirubin 0.4 mg/dL (0.2-1.0) Direct Bilirubin < 0.1 mg/dL (0.0-0.2) Aspartate Amino Transferase (AST) 24 U/L (15-37) Alanine Aminotransferase (ALT) 24 U/L (16-63) Alkaline Phosphatase 106 U/L (46-116) Total Protein 7.0 g/dL (6.4-8.2) Albumin 3.9 g/dL (3.4-5.0) Lipase 241 U/L (73-393) EKG EKG [] Radiology/Procedures Radiology/Procedures My interpretation of acute abdomen film shows no acute cardiopulmonary findings. Does have findings of previous sternotomy wires. No free air in the diaphragm. Nonspecific bowel gas pattern.. CT abdomen shows no surgical processes. Does have renal stones but no findings of obstructive uropathy. No gallstones. No obvious findings of small bowel obstruction.[] Course & Med Decision Making Course & Med Decision Making Pertinent Labs and Imaging studies reviewed. (See chart for details) Stay on a clear fluid diet only for the next 48 hours. No solids. No milk products. Must allow bowel rest. Take Tylenol or Profen for pain. For marked pain may take Vicoprofen up 4 times a day. Follow-up primary care. Review ED work up with primary care. Return if any concerns. [] Final Impression Final Impression 1. Flank Pain[] 2. History of thyroid cancer 3. History of cardiac mass Dragon Disclaimer Dragon Disclaimer This electronic medical record was generated, in whole or in part, using a voice recognition dictation system. Dragon Disclaimer This chart was dictated in whole or in part using Voice Recognition software in a busy, high-work load, and often noisy Emergency Department environment. It may contain unintended and wholly unrecognized errors or omissions. Discharge Summary Visit Information Final Diagnosis Problems Medical Problems: (1) Pain in the abdomen Status: Acute Brief Hospital Course Allergies Allergies Coded Allergies Type Severity Reaction Last Updated Verified cyclobenzaprine Allergy Unknown 11/28/17 Yes diphenhydramine Allergy Unknown 11/28/17 Yes ketorolac Allergy Unknown Itching 11/28/17 Yes meloxicam Allergy Unknown 11/28/17 Yes tramadol Allergy Unknown 11/28/17 Yes Vital Signs Vital Signs Date Time Temp Pulse Resp B/P (MAP) Pulse Ox O2 Delivery O2 Flow Rate FiO2 04/17/18 01:39 84 18 134/89 (104) 97 Room Air 04/16/18 23:14 98.6 Lab Results Laboratory Tests Test 04/16/18 23:25 04/17/18 00:05 Urine Collection Type Unknown Urine Color Yellow Urine Clarity Clear Urine pH 7.0 Urine Specific [place] 1.020 Urine Protein Neg (NEG-TRACE) Urine Glucose (UA) Neg mg/dL (NEG) Urine Ketones (Stick) Neg mg/dL (NEG) Urine Blood Neg (NEG) Urine Nitrite Neg (NEG) Urine Bilirubin Neg (NEG) Urine Urobilinogen Dipstick 1 mg/dL (0.2 mg/dL) Urine Leukocyte Esterase Neg (NEG) Urine RBC 0 /HPF (0-2) Urine WBC Occ /HPF (0-4) Urine Squamous Epithelial Cells Occ /LPF Urine Bacteria 0 /HPF (0-FEW) Urine Opiates Screen Neg (NEG) Urine Methadone Screen Neg (NEG) Urine Barbiturates Neg (NEG) Urine Phencyclidine Screen Neg (NEG) Urine Amphetamine/Methamphetamine Neg (NEG) Urine Benzodiazepines Screen Neg (NEG) Urine Cocaine Screen Neg (NEG) Urine Cannabinoids Screen Neg (NEG) Urine Ethyl Alcohol Neg (NEG) White Blood Count 8.9 x10^3/uL (4.0-11.0) Red Blood Count 4.75 x10^6/uL (4.30-5.70) Hemoglobin 15.4 g/dL (13.0-17.5) Hematocrit 43.7 % (39.0-53.0) Mean Corpuscular Volume 92 fL (79-100) Mean Corpuscular Hemoglobin 33 pg (25-35) Mean Corpuscular Hemoglobin Concent 35 g/dL (31-37) Red Cell Distribution Width 13.5 % (11.5-14.5) Platelet Count 221 x10^3/uL (140-400) Neutrophils (%) (Auto) 67 % (31-73) Lymphocytes (%) (Auto) 24 % (24-48) Monocytes (%) (Auto) 7 % (0-9) Eosinophils (%) (Auto) 2 % (0-3) Basophils (%) (Auto) 1 % (0-3) Neutrophils # (Auto) 6.0 x10^3uL (1.8-7.7) Lymphocytes # (Auto) 2.2 x10^3/uL (1.0-4.8) Monocytes # (Auto) 0.6 x10^3/uL (0.0-1.1) Eosinophils # (Auto) 0.2 x10^3/uL (0.0-0.7) Basophils # (Auto) 0.0 x10^3/uL (0.0-0.2) Prothrombin Time 9.4 SEC (9.4-11.4) Prothromb Time International Ratio 0.9 (0.9-1.1) Activated Partial Thromboplast Time 27 SEC (23-33) Sodium Level 139 mmol/L (136-145) Potassium Level 3.9 mmol/L (3.5-5.1) Chloride Level 103 mmol/L (98-107) Carbon Dioxide Level 27 mmol/L (21-32) Anion Gap 9 (6-14) Blood Urea Nitrogen 12 mg/dL (8-26) Creatinine 1.0 mg/dL (0.7-1.3) Estimated GFR (Cockcroft-Gault) 82.3 Glucose Level 126 mg/dL (70-99) Calcium Level 8.1 mg/dL (8.5-10.1) Total Bilirubin 0.4 mg/dL (0.2-1.0) Direct Bilirubin < 0.1 mg/dL (0.0-0.2) Aspartate Amino Transf (AST/SGOT) 24 U/L (15-37) Alanine Aminotransferase (ALT/SGPT) 24 U/L (16-63) Alkaline Phosphatase 106 U/L (46-116) Total Protein 7.0 g/dL (6.4-8.2) Albumin 3.9 g/dL (3.4-5.0) Lipase 241 U/L (73-393) Brief Hospital Course Mr. Quevedo is a 43 old male who presented with complaints of Rt. flank and abd., pain x 48 hrs. No acute surgical pathology or obstructive uropathy found. Discharge Information Condition at Discharge: Improved, Stable Disposition/Orders: D/C to Home Dischare Medications Current Medications Lactated Ringer's 1,000 ml @ 1,000 mls/hr Q1H IV Last administered on at 00:10; Admin Dose 1,000 MLS/HR; Start 04/16/18 at 23:30; Stop 04/17/18 at 01: 15; Status DC Ondansetron HCl (Zofran) 8 mg 1X ONCE IV Last administered on 04/17/18at 00:11; Admin Dose 8 MG; Start 04/16/18 at 23:30; Stop 04/17/18 at 01:15; Status DC Famotidine (Pepcid Vial) 20 mg 1X ONCE IVP Last administered on 04/17/18at 00:10 ; Admin Dose 20 MG; Start 04/16/18 at 23:30; Stop 04/17/18 at 01:15; Status DC Magnesium Hydroxide (Milk Of Magnesia) 2,400 mg 1X ONCE PO Last administered on 04/17/18at 01:50; Admin Dose 2,400 MG; Start 04/17/18 at 01:15; Stop 04/17/18 at 01:16; Status DC Active Scripts Active Hydrocodone-Ibuprofen 7.5-200 (Hydrocodone/Ibuprofen) 1 Each Tablet 1 Tab PO PRN Q6HRS PRN [lido] Flagyl (Metronidazole) 500 Mg Tablet 500 Mg PO TID Cipro (Ciprofloxacin Hcl) 500 Mg Tablet 500 Mg PO BID 5 Days Hydrocodone-Ibuprofen 7.5-200 (Hydrocodone/Ibuprofen) 1 Each Tablet 1 Tab PO PRN Q6HRS PRN Naproxen 500 Mg Tablet 1 Tab PO BID PRN [place] 5-325 Tablet (Hydrocodone Bit/Acetaminophen) 1 Each Tablet 1 Tab PO TID Keflex (Cephalexin) 500 Mg Capsule 500 Mg PO TID 10 Days Hydrocodone-Ibuprofen 7.5-200 (Hydrocodone/Ibuprofen) 1 Each Tablet 1 Tab PO PRN Q6HRS PRN Miralax (Polyethylene Glycol 3350) 119 Gm Powder 17 Gm PO DAILY 30 Days [place] 5-325 Tablet (Hydrocodone Bit/Acetaminophen) 1 Each Tablet 1 Tab PO PRN Q6HRS PRN [place] 5-325 Tablet (Hydrocodone Bit/Acetaminophen) 1 Each Tablet 1-2 Tab PO Q4- 6HRS [place] 5-325 Tablet (Hydrocodone Bit/Acetaminophen) 1 Each Tablet 1-2 Tab PO PRN Q6HRS PRN VIGNESH AKINS MD Apr 16, 2018 23:20
[2018-04-16] MEDS ORDERED: ONDANSETRON PF 4 MG/2 ML VIAL. IV ONE (23:30)
[2018-04-16] MEDS ORDERED: IV RINGERS SOLUTION,LACTATED 1,000 ML IV SCH (23:30)
[2018-04-16] MEDS ORDERED: FAMOTIDINE 20 MG/2 ML VIAL IVP ONE (23:30)
[2018-04-16 23:59] LABS: BARBITURATES NEG (NEG); BENZODIAZEPINES NEG (NEG); CANNABINOIDS NEG (NEG); COCAINE NEG (NEG); METHADONE NEG (NEG); OPIATES NEG (NEG); PHENCYCLIDINE NEG (NEG)
[2018-04-17] LABS: AMPHETAMINE/METHAMPHETAMINE NEG (NEG)
[2018-04-17 00:02] LABS: BACTERIA,URINE 0 /HPF (0-FEW); BILIRUBIN,URINE NEG (NEG); CLARITY,URINE CLEAR; COLOR,URINE YELLOW; GLUCOSE,URINE NEG (NEG); NITRITE,URINE NEG (NEG); RBC,URINE 0 /HPF (0-2); SQUAMOUS EPITHELIAL CELL,UR OCC /LPF; UROBILINOGEN,URINE 1 mg/dL (0.2 mg/dL); WBC,URINE OCC /HPF (0-4)
--- NOTE | 2018-04-17 00:13 | RAD ---
ACUTE ABDOMEN SERIES History: Right lower lung discomfort, right flank and abdominal pain. Comparison: Acute abdominal series March 12, 2017. Findings: Frontal chest and supine and upright views of the abdomen. Stable median sternotomy wires. Cardiomediastinal silhouette is normal. There is no pleural effusion or pneumothorax. The lungs are clear. No pneumoperitoneum is identified. No dilated air-filled loops of bowel are seen. Bowel gas pattern is nonobstructive. No obvious organomegaly. Correlate for evidence of bilateral femoral acetabular impingement. There is a 4 mm right renal calculus. Stable phleboliths in the left pelvis. IMPRESSION: 1. No acute cardiopulmonary process. 2. Nonobstructive bowel gas pattern. 3. Small right renal calculus. Electronically signed by: Roque Castellanos MD (04/17/2018 12:09 AM) [facility]
[2018-04-17 00:25] LABS: BASO % 1 % (0-3); EOS # 0.2 x10^3/uL (0.0-0.7); EOS % 2 % (0-3); HEMATOCRIT 43.7 % (39.0-53.0); HEMOGLOBIN 15.4 g/dL (13.0-17.5); LYMPH # 2.2 x10^3/uL (1.0-4.8); LYMPH % 24 % (24-48); MEAN CORPUSCULAR HEMOGLOBIN 33 pg (25-35); MEAN CORPUSCULAR HGB CONC 35 g/dL (31-37); MEAN CORPUSCULAR VOLUME 92 fL (79-100); MONO # 0.6 x10^3/uL (0.0-1.1); MONO % 7 % (0-9); NEUT % 67 % (31-73); PLATELET COUNT 221 x10^3/uL (140-400); RED BLOOD COUNT 4.75 x10^6/uL (4.30-5.70); RED CELL DISTRIBUTION WIDTH 13.5 % (11.5-14.5); WHITE BLOOD COUNT 8.9 x10^3/uL (4.0-11.0)
[2018-04-17 00:43] LABS: ALBUMIN 3.9 g/dL (3.4-5.0); ALK PHOS 106 U/L (46-116); ANION GAP 9 (6-14); BLOOD UREA NITROGEN 12 mg/dL (8-26); CALCIUM 8.1 mg/dL (8.5-10.1); CARBON DIOXIDE 27 mmol/L (21-32); CHLORIDE 103 mmol/L (98-107); GFR 82.3; GLUCOSE 126 mg/dL (70-99); LIPASE 241 U/L (73-393); SODIUM 139 mmol/L (136-145); TOTAL BILIRUBIN 0.4 mg/dL (0.2-1.0)
--- NOTE | 2018-04-17 00:49 | RAD ---
CT abdomen and pelvis without contrast: Reason for examination: Right lower quadrant abdominal pain and right flank pain. History of kidney stones. Helical images were obtained through the abdomen and pelvis with no intravenous or oral contrast administered. Reconstruction was performed in sagittal and coronal planes. Exposure: One or more of the following individualized dose reduction techniques were utilized for this examination: 1. Automated exposure control 2. Adjustment of the mA and/or kV according to patient size 3. Use of iterative reconstruction technique. The lung bases are clear. The heart size is normal. No abnormality seen at the liver, spleen, adrenal glands or pancreas. Gallbladder is contracted but no choleliths are seen. The abdominal aorta and inferior vena cava show no acute abnormalities. There is large amount of gastric content and the patient has not being fasting. The small intestinal tract shows no abnormally dilated loops of bowel or bowel wall thickening. There is no small bowel obstruction seen. There is no evidence of diverticulosis or diverticulitis. No abnormality seen at the appendix. The kidneys bilaterally show nonobstructing calculi. There is no renal mass. There is no hydronephrosis or evidence of obstructive uropathy. No abnormality seen at the bladder, prostate gland or seminal vesicles. No free fluid or free air is seen in the abdomen or pelvis. IMPRESSION: Contracted gallbladder with no gallstones. Patient has a large amount of gastric content however and has not been fasting. Multiple nonobstructing renal calculi but no hydronephrosis or evidence of obstructive uropathy. Electronically signed by: Tara Melissa MD (04/17/2018 12:45 AM) [facility]
[2018-04-17 00:50] LABS: DIRECT BILIRUBIN < 0.1 mg/dL (0.0-0.2); POTASSIUM 3.9 mmol/L (3.5-5.1)
[2018-04-17] MEDS ORDERED: HYDR-1179 PO (01:04)
[2018-04-17] MEDS ORDERED: MAGNESIUM HYDROXIDE 2,400 MG/30 ML ORAL.SUSP. PO ONE (01:15)
[2018-04-17 01:39] VITALS: BP 134/89
[2018-04-17 01:40] LABS: ALT (SGPT) 24 U/L (16-63)
[2018-04-17 01:48] LABS: AST (SGOT) 24 U/L (15-37)
== END 2018-04-17 01:50 | disposition home or self-care (01) ==
LOC: ER 23:14
DX: R10.9 Unspecified abdominal pain (principal); R11.0 Nausea; E89.0 Postprocedural hypothyroidism; Z88.6 Allergy status to analgesic agent; Z88.8 Allergy status to other drugs, medicaments and biological substances
CPT/HCPCS: 36415; 74022; 74176; 80048; 80076; 80307; 81001; 83690; 85025; 85610; 85730; 96374; 96375; 99284; J2405; J3490; J7120

== ENCOUNTER 2018-05-20 15:32 | Emergency (ER) | payer SELFPAY ==
[~2018-05-20] VITALS: Ht 190.5 cm; Wt 86.2 kg
[2018-05-20 15:32] VITALS: BP 126/84
--- NOTE | 2018-05-20 16:20 | PHYS DOC ---
Past History Past Medical History: Cancer, Hyperthyroid, Other Past Surgical History: Other Alcohol Use: Occasionally Drug Use: None Adult General Chief Complaint Chief Complaint: KNEE INJURY HPI HPI 43-year-old male presents with left knee pain. The patient states he was at a birthday alliance party last night for a couple of guys were wrestling around.. One huyen tripped and fell backwards onto the patient's left knee. The patient had pain at that time. After he went home, he iced his knee down. He was able to sleep last night. He states there was swelling last night. Today is painful but the swelling has resolved. It is most painful with walking and bending the knee. He denies any other injuries or complaints. Review of Systems Review of Systems Constitutional: Denies fever or chills [] Eyes: Denies change in visual acuity, redness, or eye pain [] HENT: Denies nasal congestion or sore throat [] Respiratory: Denies cough or shortness of breath [] Cardiovascular: No additional information not addressed in HPI [] GI: Denies abdominal pain, nausea, vomiting, bloody stools or diarrhea [] : Denies dysuria or hematuria [] Musculoskeletal: Left knee pain[] Integument: Denies rash or skin lesions [] Neurologic: Denies headache, focal weakness or sensory changes [] Endocrine: Denies polyuria or polydipsia [] All other systems were reviewed and found to be within normal limits, except as documented in this note. Allergies Allergies Allergies Coded Allergies Type Severity Reaction Last Updated Verified cyclobenzaprine Allergy Unknown 11/28/17 Yes diphenhydramine Allergy Unknown 11/28/17 Yes ketorolac Allergy Unknown Itching 11/28/17 Yes meloxicam Allergy Unknown 11/28/17 Yes tramadol Allergy Unknown 11/28/17 Yes Physical Exam Physical Exam Constitutional: Well developed, well nourished, no acute distress, non-toxic appearance. [] HENT: Normocephalic, atraumatic, bilateral external ears normal, oropharynx moist, no oral exudates, nose normal. [] Eyes: PERRLA, EOMI, conjunctiva normal, no discharge. [] Neck: Normal range of motion, no tenderness, supple, no stridor. [] Cardiovascular:Heart rate regular rhythm, no murmur [] Lungs & Thorax: Bilateral breath sounds clear to auscultation [] Abdomen: Bowel sounds normal, soft, no tenderness, no masses, no pulsatile masses. [] Skin: Warm, dry, no erythema, no rash. [] Back: No tenderness, no CVA tenderness. [] Extremities: No tenderness, no cyanosis, no clubbing, ROM intact, no edema. Negative anterior and posterior drawer. Negative valgus varus. No joint line tenderness. No obvious deformity, no ecchymosis, no swelling. Mild tenderness with palpation of the patella. [] Neurologic: Alert and oriented X 3, normal motor function, normal sensory function, no focal deficits noted. [] Psychologic: Affect normal, judgement normal, mood normal. [] EKG EKG [] Radiology/Procedures Radiology/Procedures [] Impressions: Preliminary interpretation: There is no acute fracture or dislocation Course & Med Decision Making Course & Med Decision Making Pertinent Labs and Imaging studies reviewed. (See chart for details) The patient's x-rays are unremarkable. The narcotic database shows many entries for the patient with many different prescribers and pharmacies. I do not see any objective evidence that this patient has significant injury. I will not discharge him with a pain medication prescription. [] Dragon Disclaimer Dragon Disclaimer This electronic medical record was generated, in whole or in part, using a voice recognition dictation system. Departure Departure: Impression: Primary Impression: Left anterior knee pain Disposition: 01 HOME, SELF-CARE Condition: STABLE Referrals: [facility] (PCP) Patient Instructions: Knee Pain, [id number] JOE POLLOCK DO May 20, 2018 16:20
--- NOTE | 2018-05-20 16:41 | RAD ---
Indication:Injury to knee TECHNIQUE: 3 views of the left knee COMPARISON:None FINDINGS/ impression: No acute fracture or dislocation. No suprapatellar effusion. Electronically signed by: Doug Borden DO (05/20/2018 4:36 PM) [id number]
== END 2018-05-20 16:59 | disposition home or self-care (01) ==
LOC: ER 15:32
DX: M25.562 Pain in left knee (principal); R22.42 Localized swelling, mass and lump, left lower limb; G89.11 Acute pain due to trauma; E03.9 Hypothyroidism, unspecified; Z88.6 Allergy status to analgesic agent; Z88.8 Allergy status to other drugs, medicaments and biological substances; W01.0XXA Fall on same level from slipping, tripping and stumbling without subsequent striking against object, initial encounter; Y93.89 Activity, other specified; Y92.89 Other specified places as the place of occurrence of the external cause; Y99.8 Other external cause status
CPT/HCPCS: 73564; 99283

== ENCOUNTER 2018-08-09 22:14 | Emergency (ER) | payer SELFPAY ==
[~2018-08-09] VITALS: Ht 190.5 cm; Wt 86.2 kg
--- NOTE | 2018-08-09 22:17 | ED.ADGEN ---
Past History Past Medical History: Cancer, Hyperthyroid, Other Past Surgical History: Other Alcohol Use: Occasionally Drug Use: None Adult General Chief Complaint Chief Complaint ".. I woke up this morning with severe... pain.. in my lower back..." HPI HPI Patient is a 43 year old male who presents with above hx and complaints lumbar back pain. Pain localized in the paraspinal muscles and there is some midline tenderness in the sacral area. Patient denies any problems defecation or urination. Patient denies any history of fever or chills. Patient denies any history of IV drug use. Patient does have a history of thyroid cancer and a cancer of possible thyroid origin any distress. Patient is approximately 5 years out from his surgery. No history of recent trauma or injury. No history of travel. Is exposed to was recently diagnosed with pneumonia. Pt. normally follows with Dr Beth. Review of Systems Review of Systems Constitutional: Denies fever or chills [] Eyes: Denies change in visual acuity, redness, or eye pain [] HENT: Denies nasal congestion or sore throat [] Respiratory: Denies cough or shortness of breath [] Cardiovascular: No additional information not addressed in HPI [] GI: Denies abdominal pain, nausea, vomiting, bloody stools or diarrhea [] : Denies dysuria or hematuria [] Musculoskeletal: complaints of lumbar back pain or joint pain [] Integument: Denies rash or skin lesions [] Neurologic: Denies headache, focal weakness or sensory changes [] Endocrine: Denies polyuria or polydipsia [] All other systems were reviewed and found to be within normal limits, except as documented in this note. Family History Family History reportedly has pneumonia Current Medications Current Medications Current Medications Medications (Trade) Dose Ordered Sig/Jermaine Start Time Stop Time Status Last Admin Dose Admin Lactated Ringer's 1,000 ml @ 1,000 mls/hr Q1H 08/09/18 22:54 08/09/18 23:53 DC 08/09/18 23:23 1,000 MLS/HR Morphine Sulfate (Morphine 10mg Syringe) 10 mg 1X ONCE 08/09/18 23:00 08/09/18 23:01 DC 08/09/18 23:24 10 MG Allergies Allergies Allergies Coded Allergies Type Severity Reaction Last Updated Verified cyclobenzaprine Allergy Unknown 11/28/17 Yes diphenhydramine Allergy Unknown 11/28/17 Yes ketorolac Allergy Unknown Itching 11/28/17 Yes meloxicam Allergy Unknown 11/28/17 Yes tramadol Allergy Unknown 11/28/17 Yes Physical Exam Physical Exam Constitutional: moderate acute distress, non-toxic appearance. [] HENT: Normocephalic, atraumatic, bilateral external ears normal, oropharynx moist, no oral exudates, nose normal. Poor dentition. Eyes: PERRLA, EOMI, conjunctiva normal, no discharge. [] Neck: Normal range of motion, no tenderness, supple, no stridor. [] old surgery scar Cardiovascular:Heart rate regular rhythm, no murmur []PMI to Lt. Lungs & Thorax: Bilateral breath sounds equal at apexes with scattered wheezes on auscultation []Old mild line sternotomy scar Abdomen: Bowel sounds normal, soft, no tenderness, no masses, no pulsatile masses. [] patient declines rectal exam at this time. Skin: Warm, dry, no erythema, no rash. [] Back: No tenderness, no CVA tenderness. [] Extremities: No tenderness, no cyanosis, no clubbing, ROM intact, no edema. [] Neurologic: Alert and oriented X 3, normal motor function, normal sensory function, no focal deficits noted. []DTRs are +2 patella and brachial. Patient is ambulatory without problems. No saddle loss. Psychologic: Affect anxious, judgement normal, mood normal. [] Current Patient Data Vital Signs Vital Signs Date Time Temp Pulse Resp B/P (MAP) Pulse Ox O2 Delivery O2 Flow Rate FiO2 08/10/18 00:30 57 19 136/88 (104) 98 Room Air 08/09/18 23:27 97.9 Lab Results Laboratory Tests Test 08/09/18 23:15 08/09/18 23:20 Urine Collection Type Unknown Urine Color Yellow Urine Clarity Hazy Urine pH 7.5 Urine Specific Coleman 1.020 Urine Protein Neg (NEG-TRACE) Urine Glucose (UA) Neg mg/dL (NEG) Urine Ketones (Stick) Neg mg/dL (NEG) Urine Blood Neg (NEG) Urine Nitrite Neg (NEG) Urine Bilirubin Neg (NEG) Urine Urobilinogen Dipstick 0.2 mg/dL (0.2 mg/dL) Urine Leukocyte Esterase Neg (NEG) Urine RBC 0 /HPF (0-2) Urine WBC 0 /HPF (0-4) Urine Squamous Epithelial Cells Occ /LPF Urine Bacteria 0 /HPF (0-FEW) White Blood Count 7.4 x10^3/uL (4.0-11.0) Red Blood Count 4.79 x10^6/uL (4.30-5.70) Hemoglobin 14.9 g/dL (13.0-17.5) Hematocrit 43.4 % (39.0-53.0) Mean Corpuscular Volume 91 fL (79-100) Mean Corpuscular Hemoglobin 31 pg (25-35) Mean Corpuscular Hemoglobin Concent 34 g/dL (31-37) Red Cell Distribution Width 13.8 % (11.5-14.5) Platelet Count 206 x10^3/uL (140-400) Neutrophils (%) (Auto) 69 % (31-73) Lymphocytes (%) (Auto) 22 % (24-48) L Monocytes (%) (Auto) 7 % (0-9) Eosinophils (%) (Auto) 1 % (0-3) Basophils (%) (Auto) 0 % (0-3) Neutrophils # (Auto) 5.1 x10^3uL (1.8-7.7) Lymphocytes # (Auto) 1.6 x10^3/uL (1.0-4.8) Monocytes # (Auto) 0.5 x10^3/uL (0.0-1.1) Eosinophils # (Auto) 0.1 x10^3/uL (0.0-0.7) Basophils # (Auto) 0.0 x10^3/uL (0.0-0.2) Erythrocyte Sedimentation Rate 7 (0-15) Prothrombin Time 10.6 SEC (9.4-11.4) Prothrombin Time INR 1.1 (0.9-1.1) PTT 30 SEC (23-33) Sodium Level 141 mmol/L (136-145) Potassium Level 4.0 mmol/L (3.5-5.1) Chloride Level 103 mmol/L (98-107) Carbon Dioxide Level 28 mmol/L (21-32) Anion Gap 10 (6-14) Blood Urea Nitrogen 12 mg/dL (8-26) Creatinine < 0.2 mg/dL (0.7-1.3) L Estimated GFR (Cockcroft-Gault) > 300.0 Glucose Level 96 mg/dL (70-99) Calcium Level 9.3 mg/dL (8.5-10.1) Magnesium Level 1.8 mg/dL (1.8-2.4) Total Bilirubin 0.6 mg/dL (0.2-1.0) Direct Bilirubin 0.1 mg/dL (0.0-0.2) Aspartate Amino Transferase (AST) 18 U/L (15-37) Alanine Aminotransferase (ALT) 24 U/L (16-63) Alkaline Phosphatase 90 U/L (46-116) Creatine Kinase 110 U/L (39-308) Troponin I Quantitative < 0.017 ng/mL (0-0.055) PK-Osl-L-Type Natriuretic Peptide 8 pg/mL (0-124) Total Protein 7.6 g/dL (6.4-8.2) Albumin 4.2 g/dL (3.4-5.0) EKG EKG [] Radiology/Procedures Radiology/Procedures CT of lumbar spine shows no significant central canal stenosis or foramen stenosis[]-. exam was noncontrast however. There may be some foraminal DJD or changes at S1-2 area on Lt. See formal report when available. Impressions: My interpretation of chest x-ray shows no acute cardiopulmonary findings. Does have sternal wires and clips from previous mass removal. Course & Med Decision Making Course & Med Decision Making Pertinent Labs and Imaging studies reviewed. (See chart for details) Patient to use ice packs as needed for the next 3 days. After 3 days may advance to moist heat. Take Tylenol for pain. For marked pain take Percocet up to 4 times a day. Must follow-up primary care. May need further evaluation and MRI or a contrast CT. Return if any concerns. review of current labs and cultures with primary care. [] Final Impression Final Impression 1. Back Pain[] 2. History of thyroid mass 3. History of chest mass- 4. Tobacco use Dragon Disclaimer Dragon Disclaimer This electronic medical record was generated, in whole or in part, using a voice recognition dictation system. Discharge Summary Visit Information Final Diagnosis Problems Medical Problems: (1) Back pain Status: Acute Brief Hospital Course Allergies Allergies Coded Allergies Type Severity Reaction Last Updated Verified cyclobenzaprine Allergy Unknown 11/28/17 Yes diphenhydramine Allergy Unknown 11/28/17 Yes ketorolac Allergy Unknown Itching 11/28/17 Yes meloxicam Allergy Unknown 11/28/17 Yes tramadol Allergy Unknown 11/28/17 Yes Vital Signs Vital Signs Date Time Temp Pulse Resp B/P (MAP) Pulse Ox O2 Delivery O2 Flow Rate FiO2 08/10/18 00:30 57 19 136/88 (104) 98 Room Air 08/09/18 23:27 97.9 Lab Results Laboratory Tests Test 08/09/18 23:15 08/09/18 23:20 Urine Collection Type Unknown Urine Color Yellow Urine Clarity Hazy Urine pH 7.5 Urine Specific Coleman 1.020 Urine Protein Neg (NEG-TRACE) Urine Glucose (UA) Neg mg/dL (NEG) Urine Ketones (Stick) Neg mg/dL (NEG) Urine Blood Neg (NEG) Urine Nitrite Neg (NEG) Urine Bilirubin Neg (NEG) Urine Urobilinogen Dipstick 0.2 mg/dL (0.2 mg/dL) Urine Leukocyte Esterase Neg (NEG) Urine RBC 0 /HPF (0-2) Urine WBC 0 /HPF (0-4) Urine Squamous Epithelial Cells Occ /LPF Urine Bacteria 0 /HPF (0-FEW) White Blood Count 7.4 x10^3/uL (4.0-11.0) Red Blood Count 4.79 x10^6/uL (4.30-5.70) Hemoglobin 14.9 g/dL (13.0-17.5) Hematocrit 43.4 % (39.0-53.0) Mean Corpuscular Volume 91 fL (79-100) Mean Corpuscular Hemoglobin 31 pg (25-35) Mean Corpuscular Hemoglobin Concent 34 g/dL (31-37) Red Cell Distribution Width 13.8 % (11.5-14.5) Platelet Count 206 x10^3/uL (140-400) Neutrophils (%) (Auto) 69 % (31-73) Lymphocytes (%) (Auto) 22 % (24-48) Monocytes (%) (Auto) 7 % (0-9) Eosinophils (%) (Auto) 1 % (0-3) Basophils (%) (Auto) 0 % (0-3) Neutrophils # (Auto) 5.1 x10^3uL (1.8-7.7) Lymphocytes # (Auto) 1.6 x10^3/uL (1.0-4.8) Monocytes # (Auto) 0.5 x10^3/uL (0.0-1.1) Eosinophils # (Auto) 0.1 x10^3/uL (0.0-0.7) Basophils # (Auto) 0.0 x10^3/uL (0.0-0.2) Erythrocyte Sedimentation Rate 7 (0-15) Prothrombin Time 10.6 SEC (9.4-11.4) Prothromb Time International Ratio 1.1 (0.9-1.1) Activated Partial Thromboplast Time 30 SEC (23-33) Sodium Level 141 mmol/L (136-145) Potassium Level 4.0 mmol/L (3.5-5.1) Chloride Level 103 mmol/L (98-107) Carbon Dioxide Level 28 mmol/L (21-32) Anion Gap 10 (6-14) Blood Urea Nitrogen 12 mg/dL (8-26) Creatinine < 0.2 mg/dL (0.7-1.3) Estimated GFR (Cockcroft-Gault) > 300.0 Glucose Level 96 mg/dL (70-99) Calcium Level 9.3 mg/dL (8.5-10.1) Magnesium Level 1.8 mg/dL (1.8-2.4) Total Bilirubin 0.6 mg/dL (0.2-1.0) Direct Bilirubin 0.1 mg/dL (0.0-0.2) Aspartate Amino Transf (AST/SGOT) 18 U/L (15-37) Alanine Aminotransferase (ALT/SGPT) 24 U/L (16-63) Alkaline Phosphatase 90 U/L (46-116) Creatine Kinase 110 U/L (39-308) Troponin I Quantitative < 0.017 ng/mL (0-0.055) TL-Zcn-E-Type Natriuretic Peptide 8 pg/mL (0-124) Total Protein 7.6 g/dL (6.4-8.2) Albumin 4.2 g/dL (3.4-5.0) Brief Hospital Course Mr. Quevedo is a 43 old male who presented with back pain. Discharge Information Condition at Discharge: Improved, Stable Disposition/Orders: D/C to Home Dischare Medications Current Medications Morphine Sulfate (Morphine 10mg Syringe) 10 mg 1X ONCE SQ Last administered on 08/09/18at 23:24; Admin Dose 10 MG; Start 08/09/18 at 23:00; Stop 08/09/18 at 23:01; Status DC Lactated Ringer's 1,000 ml @ 1,000 mls/hr Q1H IV Last administered on 9at 23:23; Admin Dose 1,000 MLS/HR; Start 08/09/18 at 22:54; Stop 08/09/18 at 23:53; Status DC Active Scripts Active Percocet 5-325 Mg Tablet (Oxycodone Hcl/Acetaminophen) 1 Each Tablet 2 Tab PO PRN Q6HRS PRN Hydrocodone-Ibuprofen 7.5-200 (Hydrocodone/Ibuprofen) 1 Each Tablet 1 Tab PO PRN Q6HRS PRN [lido] Flagyl (Metronidazole) 500 Mg Tablet 500 Mg PO TID Cipro (Ciprofloxacin Hcl) 500 Mg Tablet 500 Mg PO BID 5 Days Hydrocodone-Ibuprofen 7.5-200 (Hydrocodone/Ibuprofen) 1 Each Tablet 1 Tab PO PRN Q6HRS PRN Naproxen 500 Mg Tablet 1 Tab PO BID PRN Claridge 5-325 Tablet (Hydrocodone Bit/Acetaminophen) 1 Each Tablet 1 Tab PO TID Keflex (Cephalexin) 500 Mg Capsule 500 Mg PO TID 10 Days Hydrocodone-Ibuprofen 7.5-200 (Hydrocodone/Ibuprofen) 1 Each Tablet 1 Tab PO PRN Q6HRS PRN Miralax (Polyethylene Glycol 3350) 119 Gm Powder 17 Gm PO DAILY 30 Days Claridge 5-325 Tablet (Hydrocodone Bit/Acetaminophen) 1 Each Tablet 1 Tab PO PRN Q6HRS PRN Claridge 5-325 Tablet (Hydrocodone Bit/Acetaminophen) 1 Each Tablet 1-2 Tab PO Q4- 6HRS Claridge 5-325 Tablet (Hydrocodone Bit/Acetaminophen) 1 Each Tablet 1-2 Tab PO PRN Q6HRS PRN Dragon Disclaimer This chart was dictated in whole or in part using Voice Recognition software in a busy, high-work load, and often noisy Emergency Department environment. It may contain unintended and wholly unrecognized errors or omissions. VIGNESH AKINS MD Aug 09, 2018 22:17
[2018-08-09] MEDS ORDERED: IV RINGERS SOLUTION,LACTATED 1,000 ML IV SCH (22:54)
[2018-08-09] MEDS ORDERED: MORPHINE SULFATE 10 MG/ML SYRINGE. SQ ONE (23:00)
[2018-08-09 23:38] LABS: BASO % 0 % (0-3); EOS # 0.1 x10^3/uL (0.0-0.7); EOS % 1 % (0-3); HEMATOCRIT 43.4 % (39.0-53.0); HEMOGLOBIN 14.9 g/dL (13.0-17.5); LYMPH # 1.6 x10^3/uL (1.0-4.8); LYMPH % 22 % (24-48); MEAN CORPUSCULAR HEMOGLOBIN 31 pg (25-35); MEAN CORPUSCULAR HGB CONC 34 g/dL (31-37); MEAN CORPUSCULAR VOLUME 91 fL (79-100); MONO # 0.5 x10^3/uL (0.0-1.1); MONO % 7 % (0-9); NEUT # 5.1 x10^3uL (1.8-7.7); NEUT % 69 % (31-73); PLATELET COUNT 206 x10^3/uL (140-400); RED BLOOD COUNT 4.79 x10^6/uL (4.30-5.70); RED CELL DISTRIBUTION WIDTH 13.8 % (11.5-14.5); WHITE BLOOD COUNT 7.4 x10^3/uL (4.0-11.0)
[2018-08-09 23:44] LABS: BACTERIA,URINE 0 /HPF (0-FEW); BILIRUBIN,URINE NEG (NEG); CLARITY,URINE HAZY; COLOR,URINE YELLOW; GLUCOSE,URINE NEG (NEG); NITRITE,URINE NEG (NEG); RBC,URINE 0 /HPF (0-2); SQUAMOUS EPITHELIAL CELL,UR OCC /LPF; UROBILINOGEN,URINE 0.2 mg/dL (0.2 mg/dL); WBC,URINE 0 /HPF (0-4)
--- NOTE | 2018-08-09 23:57 | RAD ---
CT lumbar spine without contrast History: Back pain Axial helical images of the lumbar spine were obtained without contrast. Axial, coronal and sagittal reconstruction was performed. Findings: The vertebral bodies are aligned. There is no loss of vertebral body stature. Evaluation of the central canal is limited without contrast. 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 There is no significant central or neuroforaminal stenosis. There are multiple small nonobstructive stones in the right renal pelvis. Impression: No acute findings. PQRS Compliance Statement: One or more of the following individualized dose reduction techniques were utilized for this examination: 1. Automated exposure control 2. Adjustment of the mA and/or kV according to patient size 3. Use of iterative reconstruction technique Electronically signed by: Nate Rosales III, MD (08/09/2018 11:54 PM) [facility]
[2018-08-10 00:02] LABS: ALBUMIN 4.2 g/dL (3.4-5.0); ALK PHOS 90 U/L (46-116); ALT (SGPT) 24 U/L (16-63); ANION GAP 10 (6-14); AST (SGOT) 18 U/L (15-37); BLOOD UREA NITROGEN 12 mg/dL (8-26); CALCIUM 9.3 mg/dL (8.5-10.1); CARBON DIOXIDE 28 mmol/L (21-32); CHLORIDE 103 mmol/L (98-107); DIRECT BILIRUBIN 0.1 mg/dL (0.0-0.2); GLUCOSE 96 mg/dL (70-99); MAGNESIUM 1.8 mg/dL (1.8-2.4); SODIUM 141 mmol/L (136-145); TOTAL BILIRUBIN 0.6 mg/dL (0.2-1.0); TOTAL PROTEIN 7.6 g/dL (6.4-8.2)
[2018-08-10 00:13] LABS: CREATININE < 0.2 mg/dL (0.7-1.3); GFR > 300.0
[2018-08-10 00:30] VITALS: BP 136/88
[2018-08-10 00:41] LABS: SEDIMENTATION RATE 7 (0-15)
[2018-08-10] MEDS ORDERED: OXYC1TAB15 PO (01:17)
--- NOTE | 2018-08-10 07:43 | RAD ---
CHEST PA LATERAL History: Hx chest tumor w/surgical removal, thyroid cancer Comparison: March 12, 2017 Findings: 2 views of the chest are submitted. There again has been a median sternotomy. Heart size is stable, within normal limits. There is no lobar consolidation, pleural fluid, pneumothorax. Impression: 1. There is no evidence of acute cardiopulmonary disease. Electronically signed by: Charlie Josue MD (08/10/2018 7:40 AM) [facility]
--- NOTE | 2018-08-10 16:56 | EKG ---
[address] [address] Test Date: 2018-08-09 Test Time: 23:05:43 Pat Name: MARY OSORIO Department: Room: Gender: M Sock Ironer: : [id number] Requested By: VIGNESH AKINS Order Number: [id number] Reading MD: Dev Juarez Measurements Intervals [place] Rate: 62 P: 45 [place]: 160 QRS: -10 QRSD: 80 T: 48 QT: 408 QTc: 416 Interpretive Statements SINUS RHYTHM LEFTWARD AXIS NO SPECIFIC ECG ABNORMALITIES RI6.01 No previous ECG available for comparison Electronically Signed On 08-14-2018 13:05:34 CDT by Dev Juarez
== END 2018-08-10 01:20 | disposition home or self-care (01) ==
LOC: ER 22:14
DX: M54.5 Low back pain (principal); R22.2 Localized swelling, mass and lump, trunk; E07.9 Disorder of thyroid, unspecified; E03.9 Hypothyroidism, unspecified; Z72.0 Tobacco use; Z88.6 Allergy status to analgesic agent; Z88.8 Allergy status to other drugs, medicaments and biological substances
CPT/HCPCS: 36415; 71046; 72131; 80048; 80076; 81001; 82550; 83735; 83880; 84443; 84484; 85025; 85610; 85651; 85730; 87040; 93005; 96372; 99285; J2270; J7120

== ENCOUNTER 2018-09-09 13:39 | Emergency (ER) | payer SELFPAY ==
[~2018-09-09] VITALS: Ht 190.5 cm; Wt 84.0 kg
[~2018-09-09 13:39] MED LIST changes: +OXYC1TAB15 PO
[2018-09-09 13:55] VITALS: BP 114/64
[2018-09-09] MEDS ORDERED: PRED50TA PO (14:30)
[2018-09-09] MEDS ORDERED: DOXE10CA PO (14:30)
--- NOTE | 2018-09-09 14:30 | PHYS DOC ---
Past History Past Medical History: Cancer, Hyperthyroid Past Surgical History: Other Additional Smoking Information: PACK/DAY Alcohol Use: None Drug Use: None Adult General Chief Complaint Chief Complaint: HAND PROBLEM HPI HPI Patient is a 43-year-old male complains of bilateral hand pain and swelling for the past 3 days. 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 Patient denies any difficulty breathing. Denies any rash. Denies any drainage. Notes some mild erythema. No improvement with Tylenol. Discomfort is moderate in intensity. Nothing seems to make the discomfort better or worse.[] Review of Systems Review of Systems Constitutional: Denies fever or chills [] Eyes: Denies change in visual acuity, redness, or eye pain [] HENT: Denies nasal congestion or sore throat [] Respiratory: Denies cough or shortness of breath [] Cardiovascular: No chest pain or palpitations[] GI: Denies abdominal pain, nausea, vomiting, bloody stools or diarrhea [] : Denies dysuria or hematuria [] Musculoskeletal: Denies back pain or joint pain [] Integument: See history of present illness[] Neurologic: Denies headache, focal weakness or sensory changes [] Endocrine: Denies polyuria or polydipsia [] All other systems were reviewed and found to be within normal limits, except as documented in this note. Allergies Allergies Allergies Coded Allergies Type Severity Reaction Last Updated Verified cyclobenzaprine Allergy Unknown 11/28/17 Yes diphenhydramine Allergy Unknown 11/28/17 Yes ketorolac Allergy Unknown Itching 11/28/17 Yes meloxicam Allergy Unknown 11/28/17 Yes tramadol Allergy Unknown 11/28/17 Yes Physical Exam Physical Exam Constitutional: Well developed, well nourished, no acute distress, non-toxic appearance. [] HENT: Normocephalic, atraumatic, bilateral external ears normal, oropharynx moist, no oral exudates, nose normal. [] Eyes: PERRLA, EOMI, conjunctiva normal, no discharge. [] Neck: Normal range of motion, no tenderness, supple, no stridor. [] Cardiovascular:Heart rate regular rhythm, no murmur [] Lungs & Thorax: Bilateral breath sounds clear to auscultation [] Abdomen: Bowel sounds normal, soft, no tenderness, no masses, no pulsatile masses. [] Skin: Warm, dry, no rash. [] Back: No tenderness, no CVA tenderness. [] Extremities: Diffuse edema, erythema around the nail beds bilaterally. No cyanosis. No clubbing. ROM intact, distally neurovascularly intact, no lesions noted as far as petechiae, papules, or macules. [] Neurologic: Alert and oriented X 3, normal motor function, normal sensory function, no focal deficits noted. [] Psychologic: Affect normal, judgement normal, mood normal. [] Current Patient Data Vital Signs Vital Signs Date Time Temp Pulse Resp B/P (MAP) Pulse Ox O2 Delivery O2 Flow Rate FiO2 09/09/18 13:55 97.8 55 20 98 Room Air EKG EKG [] Radiology/Procedures Radiology/Procedures [] Course & Med Decision Making Course & Med Decision Making Pertinent Labs and Imaging studies reviewed. (See chart for details) Medical decision making: This to be more of a contact dermatitis. There is no evidence of anaphylaxis. No evidence of staph scalded skin syndrome, no toxic epidermal necrolysis, no Uriarte-Ricco syndrome. We'll cover for possible allergic reaction as well as pain management.[] Dragon Disclaimer Dragon Disclaimer This electronic medical record was generated, in whole or in part, using a voice recognition dictation system. Departure Departure: Impression: Primary Impression: Bilateral hand pain Disposition: 01 HOME, SELF-CARE Condition: IMPROVED Referrals: [facility] (PCP) Follow-up in 2 days Patient Instructions: Hand Dermatitis Additional Instructions: Follow-up with your regular doctor in 2 days. Take the medication as prescribed. Return to the ER if worsening pain or any other concerns. Scripts Prednisone (PREDNISONE) 50 Mg Tablet 1 TAB PO DAILY for INFLAMMATION, #5 TAB Prov: EMORY CASTRO DO 09/09/18 Doxepin Hcl (DOXEPIN HCL) 10 Mg Capsule 1 CAP PO QHS for antihistamine, #30 CAP Prov: EMORY CASTRO DO 09/09/18 EMORY CASTRO DO September 09, 2018 14:30
== END 2018-09-09 14:35 | disposition home or self-care (01) ==
LOC: ER 13:39
DX: M79.642 Pain in left hand (principal); M79.641 Pain in right hand; R22.43 Localized swelling, mass and lump, lower limb, bilateral; Z88.8 Allergy status to other drugs, medicaments and biological substances; Z88.6 Allergy status to analgesic agent; E03.9 Hypothyroidism, unspecified; F17.200 Nicotine dependence, unspecified, uncomplicated
CPT/HCPCS: 99283

== ENCOUNTER 2018-10-05 12:20 | Emergency (ER) | payer SELFPAY ==
[~2018-10-05 12:20] MED LIST changes: +DOXE10CA PO; +PRED50TA PO
[2018-10-05 12:43] VITALS: BP 130/75
[2018-10-05] MEDS ORDERED: ONDANSETRON PF 4 MG/2 ML VIAL. IV ONE (12:45)
[2018-10-05] MEDS ORDERED: MORPHINE SULFATE 2 MG/ML DISP.SYRIN. IV ONE (12:45)
--- NOTE | 2018-10-05 13:24 | PHYS DOC ---
Past History Past Medical History: Hypothyroid Past Surgical History: Other Alcohol Use: None Drug Use: None Adult General Chief Complaint Chief Complaint: NAUSEA/VOMITING/DIARRHEA HPI HPI 43-year-old male presents with right flank and lower back pain. Patient states that the pain started sometime yesterday. It was tolerable most of the day, but was worse by the time he went home from work. 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 Today, the patient went to work and had several episodes of vomiting. He is not sure of the vomiting was just due to the pain or separate issue. Patient has also notice d some decreased urine flow and irritation with urinating. He denies fever or chills. He denies any recent fall, trauma, or injury. He does have to lift heavy trash bags daily. Review of Systems Review of Systems Constitutional: Denies fever or chills [] Eyes: Denies change in visual acuity, redness, or eye pain [] HENT: Denies nasal congestion or sore throat [] Respiratory: Denies cough or shortness of breath [] Cardiovascular: No additional information not addressed in HPI [] GI: Denies abdominal pain, nausea, vomiting, bloody stools or diarrhea [] : Denies dysuria or hematuria [] Musculoskeletal: Right low back and flank pain[] Integument: Denies rash or skin lesions [] Neurologic: Denies headache, focal weakness or sensory changes [] Endocrine: Denies polyuria or polydipsia [] All other systems were reviewed and found to be within normal limits, except as documented in this note. Current Medications Current Medications Current Medications Medications (Trade) Dose Ordered Sig/[facility] Start Time Stop Time Status Last Admin Dose Admin Morphine Sulfate (Morphine 2mg Syringe) 2 mg 1X ONCE 10/05/18 12:45 10/05/18 12:47 DC 10/05/18 12:59 2 MG Ondansetron HCl (Zofran) 4 mg 1X ONCE 10/05/18 12:45 10/05/18 12:47 DC 10/05/18 12:59 4 MG Allergies Allergies Allergies Coded Allergies Type Severity Reaction Last Updated Verified cyclobenzaprine Allergy Unknown 11/28/17 Yes diphenhydramine Allergy Unknown 11/28/17 Yes ketorolac Allergy Unknown Itching 11/28/17 Yes meloxicam Allergy Unknown 11/28/17 Yes tramadol Allergy Unknown 11/28/17 Yes Physical Exam Physical Exam Constitutional: Well developed, well nourished, no acute distress, non-toxic appearance. [] HENT: Normocephalic, atraumatic, bilateral external ears normal, oropharynx moist, no oral exudates, nose normal. [] Eyes: PERRLA, EOMI, conjunctiva normal, no discharge. [] Neck: Normal range of motion, no tenderness, supple, no stridor. [] Cardiovascular:Heart rate regular rhythm, no murmur [] Lungs & Thorax: Bilateral breath sounds clear to auscultation [] Abdomen: Bowel sounds normal, soft, no tenderness, no masses, no pulsatile masses. [] Skin: Warm, dry, no erythema, no rash. [] Back: No tenderness, no CVA tenderness. [] Extremities: No tenderness, no cyanosis, no clubbing, ROM intact, no edema. [] Neurologic: Alert and oriented X 3, normal motor function, normal sensory function, no focal deficits noted. [] Psychologic: Affect normal, judgement normal, mood normal. [] Current Patient Data Vital Signs Vital Signs Date Time Temp Pulse Resp B/P (MAP) Pulse Ox O2 Delivery O2 Flow Rate FiO2 10/05/18 12:43 65 18 98 Room Air EKG EKG [] Radiology/Procedures Radiology/Procedures [] Impressions: PQRS Compliance statement: One or more of the following individualized dose reduction techniques were utilized for this examination: 1. Automated exposure control. 2. Adjustment of the mA and/or kV according to patient size. 3. Use of iterative reconstruction technique. Indication:Right flank pain. TECHNIQUE: CT abdomen and pelvis without IV contrast with multiplanar reformats. COMPARISON: 04/16/2018 FINDINGS: Limited evaluation of solid abdominal and pelvic organs due to lack of IV contrast. Heart is normal in size. No pericardial or pleural effusion. New pleural-based right lower lobe nodule measuring 9 mm (series 2 image 14). Noncontrast appearance of the liver, spleen, gallbladder, pancreas, adrenals within normal limits. Few punctate nonobstructing right renal stones are seen, the largest measuring 3 mm. Couple of punctate nonobstructing left renal stones are seen. No free pelvic fluid or ascites. No enlarged retroperitoneal or pelvic adenopathy. The prostate and seminal vesicles show no large mass. No bowel obstruction. Normal appendix. Urinary bladder demonstrates no radiopaque stones. No pneumoperitoneum. No suspicious bony lesion. IMPRESSION: Limited evaluation of solid abdominal and pelvic organs due to lack of IV contrast. 1. Bilateral nonobstructing nephrolithiasis. 2. Pleural-based right lower lobe nodule. Nonemergent CT chest without IV contrast is recommended in 3 months. Electronically signed by: Doug Marks DO (10/05/2018 1:31 PM) [facility] DICTATED AND SIGNED BY: DOUG MARKS DO DATE: 10/05/18 0053 CC: JOE POLLOCK DO; RISHI JORGENSEN MD ~ Course & Med Decision Making Course & Med Decision Making Pertinent Labs and Imaging studies reviewed. (See chart for details) The patient's labs are unremarkable. His CT is significant for multiple nephrolithiasis. None of these are obstructing. It's possible that these are the cause of his pain. I have given him morphine in the ED. I will discharge him with [place] 5/325. The patient does have multiple injuries in the narcotics database, but I feel like there is a medical reason for prescription at this time. The patient's CT scan also shows a right lower lobe nodule which appears to be new. I have advised the patient follow up with his primary care physician and have repeat evaluation of this in 3 months. The patient is stable for discharge at this time. [] Dragon Disclaimer Dragon Disclaimer This electronic medical record was generated, in whole or in part, using a voice recognition dictation system. Departure Departure: Impression: Primary Impression: Kidney stones Disposition: 01 HOME, SELF-CARE Condition: STABLE Referrals: RISHI JORGENSEN MD (PCP) Patient Instructions: Kidney Stones, [id number] Scripts Hydrocodone Bit/Acetaminophen (NORCO 5-325 TABLET) 1 Each Tablet 1 TAB PO PRN Q6HRS PRN for PAIN, #10 TAB 0 Refills Prov: JOE POLLOCK DO 10/05/18 JOE POLLOCK DO Oct 05, 2018 13:24
[2018-10-05 13:26] LABS: BASO % 0 % (0-3); EOS # 0.1 x10^3/uL (0.0-0.7); EOS % 2 % (0-3); HEMATOCRIT 42.4 % (39.0-53.0); LYMPH # 1.2 x10^3/uL (1.0-4.8); LYMPH % 20 % (24-48); MEAN CORPUSCULAR HEMOGLOBIN 30 pg (25-35); MEAN CORPUSCULAR HGB CONC 33 g/dL (31-37); MEAN CORPUSCULAR VOLUME 92 fL (79-100); MONO # 0.4 x10^3/uL (0.0-1.1); MONO % 7 % (0-9); NEUT # 4.1 x10^3uL (1.8-7.7); NEUT % 70 % (31-73); PLATELET COUNT 217 x10^3/uL (140-400); RED BLOOD COUNT 4.61 x10^6/uL (4.30-5.70); RED CELL DISTRIBUTION WIDTH 13.9 % (11.5-14.5); WHITE BLOOD COUNT 5.9 x10^3/uL (4.0-11.0)
--- NOTE | 2018-10-05 13:33 | RAD ---
PQRS Compliance statement: One or more of the following individualized dose reduction techniques were utilized for this examination: 1. Automated exposure control. 2. Adjustment of the mA and/or kV according to patient size. 3. Use of iterative reconstruction technique. Indication:Right flank pain. TECHNIQUE: CT abdomen and pelvis without IV contrast with multiplanar reformats. COMPARISON: 04/16/2018 FINDINGS: Limited evaluation of solid abdominal and pelvic organs due to lack of IV contrast. Heart is normal in size. No pericardial or pleural effusion. New pleural-based right lower lobe nodule measuring 9 mm (series 2 image 14). Noncontrast appearance of the liver, spleen, gallbladder, pancreas, adrenals within normal limits. Few punctate nonobstructing right renal stones are seen, the largest measuring 3 mm. Couple of punctate nonobstructing left renal stones are seen. No free pelvic fluid or ascites. No enlarged retroperitoneal or pelvic adenopathy. The prostate and seminal vesicles show no large mass. No bowel obstruction. Normal appendix. Urinary bladder demonstrates no radiopaque stones. No pneumoperitoneum. No suspicious bony lesion. IMPRESSION: Limited evaluation of solid abdominal and pelvic organs due to lack of IV contrast. 1. Bilateral nonobstructing nephrolithiasis. 2. Pleural-based right lower lobe nodule. Nonemergent CT chest without IV contrast is recommended in 3 months. Electronically signed by: Doug Borden DO (10/05/2018 1:31 PM) [facility]
[2018-10-05 13:49] LABS: BACTERIA,URINE 0 /HPF (0-FEW); BILIRUBIN,URINE NEG (NEG); CLARITY,URINE CLEAR; COLOR,URINE YELLOW; GLUCOSE,URINE NEG (NEG); NITRITE,URINE NEG (NEG); RBC,URINE RARE /HPF (0-2); SQUAMOUS EPITHELIAL CELL,UR OCC /LPF; UROBILINOGEN,URINE 0.2 mg/dL (0.2 mg/dL); WBC,URINE 0 /HPF (0-4)
[2018-10-05 13:49] LABS: ALBUMIN/GLOBULIN RATIO 1.3 (1.0-1.7); CALCIUM 8.9 mg/dL (8.5-10.1); CREATININE 0.9 mg/dL (0.7-1.3); POTASSIUM 3.8 mmol/L (3.5-5.1); TOTAL BILIRUBIN 0.5 mg/dL (0.2-1.0); TOTAL PROTEIN 7.1 g/dL (6.4-8.2)
[2018-10-05] MEDS ORDERED: HYDR-3165 PO (14:06)
== END 2018-10-05 14:10 | disposition home or self-care (01) ==
LOC: ER 12:20
DX: N20.0 Calculus of kidney (principal); R91.1 Solitary pulmonary nodule; E03.9 Hypothyroidism, unspecified; Z88.8 Allergy status to other drugs, medicaments and biological substances; Z88.6 Allergy status to analgesic agent
CPT/HCPCS: 36415; 74176; 80053; 81001; 85025; 96374; 96375; 99285; J2270; J2405

== ENCOUNTER 2018-11-11 23:07 | Emergency (ER) | payer SELFPAY ==
[~2018-11-11] VITALS: Ht 190.5 cm; Wt 84.0 kg
[2018-11-11 23:55] VITALS: BP 113/83
[2018-11-12] MEDS ORDERED: OXAP600T2 PO (00:01)
--- NOTE | 2018-11-12 00:02 | PHYS DOC ---
Past History Past Medical History: Hypothyroid Past Surgical History: Other Smoking: Cigarettes Alcohol Use: None Drug Use: None Adult General Chief Complaint Chief Complaint: SKIN PROBLEM HPI HPI Patient is a 43-year-old male presents with left leg pain after having a laceration at work 2 days ago. His was treated at [facility] 2 days ago. She reports increased pain with movement. Denies any purulent drainage. Denies any fever. Reports that the pain is severe. He reports he is allergic to tramadol and Toradol because they keep him awake all night and make him twitchy. He denies any fever. He has not followed up with his primary care physician or Worker's Compensation physician from this wound.[] Review of Systems Review of Systems Constitutional: Denies fever or chills [] Eyes: Denies change in visual acuity, redness, or eye pain [] HENT: Denies nasal congestion or sore throat [] Respiratory: Denies cough or shortness of breath [] Cardiovascular: No chest pain or palpitations[] GI: Denies abdominal pain, nausea, vomiting, bloody stools or diarrhea [] : Denies dysuria or hematuria [] Musculoskeletal: Denies back pain, see history of present illness[] Integument: Denies rash or skin lesions [] Neurologic: Denies headache, focal weakness or sensory changes [] Endocrine: Denies polyuria or polydipsia [] All other systems were reviewed and found to be within normal limits, except as documented in this note. Allergies Allergies Allergies Coded Allergies Type Severity Reaction Last Updated Verified cyclobenzaprine Allergy Unknown 11/28/17 Yes diphenhydramine Allergy Unknown 11/28/17 Yes ketorolac Allergy Unknown Itching 11/28/17 Yes meloxicam Allergy Unknown 11/28/17 Yes tramadol Allergy Unknown 11/28/17 Yes Physical Exam Physical Exam Constitutional: Well developed, well nourished, no acute distress, non-toxic appearance. Playing a game on his phone as I entered the room[] HENT: Normocephalic, atraumatic, bilateral external ears normal, oropharynx moist, no oral exudates, nose normal. [] Eyes: PERRLA, EOMI, conjunctiva normal, no discharge. [] Neck: Normal range of motion, no tenderness, supple, no stridor. [] Cardiovascular:Heart rate regular rhythm, no murmur [] Lungs & Thorax: Bilateral breath sounds clear to auscultation [] Abdomen: Not examined[] Skin: Warm, dry, no erythema, no rash. [] Back: No tenderness, no CVA tenderness. [] Extremities: Left calf incision appears clean, dry, suture line is intact. There is no erythema. No drainage. No inguinal lymphadenopathy. Patient is distally neurovascularly intact. The other 3 extremities show: No tenderness, no cyanosis, no clubbing, ROM intact, no edema. [] Neurologic: Alert and oriented X 3, normal motor function, normal sensory function, no focal deficits noted. [] Psychologic: Affect normal, judgement normal, mood normal. [] EKG EKG [] Radiology/Procedures Radiology/Procedures [] Course & Med Decision Making Course & Med Decision Making Pertinent Labs and Imaging studies reviewed. (See chart for details) Medical decision making: This appears to be a healing wound without any overt evidence of an infection. Review of K tracs shows the patient has multiple prescriptions from different physicians including more than 5 opiate or sedative providers in any year and the last 2 years. Reluctant to give additional narcotics prescription in this situation. We will have patient follow-up with his primary care physician or Worker's Compensation physician tomorrow.[] Dragon Disclaimer Dragon Disclaimer This electronic medical record was generated, in whole or in part, using a voice recognition dictation system. Departure Departure: Impression: Primary Impression: Encounter for wound re-check Disposition: 01 HOME, SELF-CARE Condition: IMPROVED Referrals: RISHI JORGENSEN MD (PCP) Follow-up tomorrow Patient Instructions: Wound Check Additional Instructions: Follow-up with your primary care physician or Worker's Compensation physician on 11/12/2018. Return to the ER if worsening pain, purulent drainage, either of more than 101�, or any other concerns. Scripts Oxaprozin (OXAPROZIN) 600 Mg Tablet 600 MG PO BID for severe pain, #20 TAB Prov: EMORY CASTRO DO 11/12/18 EMORY CASTRO DO Nov 12, 2018 00:02
[2018-11-12] MEDS ORDERED: IBUPROFEN 600 MG TABLET. PO ONE ×2 (00:10→00:15)
== END 2018-11-12 00:14 | disposition home or self-care (01) ==
LOC: ER 23:07
DX: Z48.01 Encounter for change or removal of surgical wound dressing (principal); M79.605 Pain in left leg; E03.9 Hypothyroidism, unspecified; F17.210 Nicotine dependence, cigarettes, uncomplicated; Z88.8 Allergy status to other drugs, medicaments and biological substances; Z88.6 Allergy status to analgesic agent
CPT/HCPCS: 99283

== ENCOUNTER 2018-12-04 14:44 | Emergency (ER) | payer SELFPAY ==
[~2018-12-04] VITALS: Ht 190.5 cm; Wt 78.9 kg
[~2018-12-04 14:44] MED LIST changes: +OXAP600T2 PO
[2018-12-04] MEDS ORDERED: IV NORMAL SALINE 1,000ML 1,000 ML IV ONE (15:00)
--- NOTE | 2018-12-04 15:11 | PHYS DOC ---
Past History Past Medical History: Hypothyroid Past Surgical History: Other Smoking: Cigarettes Alcohol Use: None Drug Use: None Adult General Chief Complaint Chief Complaint: FLANK PAIN HPI HPI The patient is a pleasant 43-year-old male presents for evaluation of right flank pain. States the pain began earlier today he compares it to previous kidney stone he had 7 years ago. He states he is having some slight difficulty urinating as well. He is alert and oriented �4, calm, and appears to be in no distress this time. He denies fevers or chills, nausea or vomiting, diarrhea, rectal bleeding, chest pain or shortness of breath. Review of Systems Review of Systems Constitutional: Denies fever or chills [] Eyes: Denies change in visual acuity, redness, or eye pain [] HENT: Denies nasal congestion or sore throat [] Respiratory: Denies cough or shortness of breath [] Cardiovascular: No additional information not addressed in HPI [] GI: Denies abdominal pain, nausea, vomiting, bloody stools or diarrhea [] right flank pain : Denies dysuria or hematuria [] Musculoskeletal: Denies back pain or joint pain [] Integument: Denies rash or skin lesions [] Neurologic: Denies headache, focal weakness or sensory changes [] Endocrine: Denies polyuria or polydipsia [] All other systems were reviewed and found to be within normal limits, except as documented in this note. Current Medications Current Medications Current Medications Medications (Trade) Dose Ordered Sig/[facility] Start Time Stop Time Status Last Admin Dose Admin Sodium Chloride 1,000 ml @ 1,000 mls/hr 1X ONCE 12/04/18 15:00 12/04/18 15:59 Allergies Allergies Allergies Coded Allergies Type Severity Reaction Last Updated Verified cyclobenzaprine Allergy Unknown 11/28/17 Yes diphenhydramine Allergy Unknown 11/28/17 Yes ketorolac Allergy Unknown Itching 11/28/17 Yes meloxicam Allergy Unknown 11/28/17 Yes tramadol Allergy Unknown 11/28/17 Yes Physical Exam Physical Exam Constitutional: Well developed, well nourished, no acute distress, non-toxic appearance. [] calm, appears comfortable HENT: Normocephalic, atraumatic, bilateral external ears normal, oropharynx moist, no oral exudates, nose normal. [] Eyes: PERRLA, EOMI, conjunctiva normal, no discharge. [] Neck: Normal range of motion, no tenderness, supple, no stridor. [] Cardiovascular:Heart rate regular rhythm, no murmur [] Lungs & Thorax: Bilateral breath sounds clear to auscultation [] Abdomen: Bowel sounds normal, soft, no tenderness, no masses, no pulsatile masses. [] +right CVA ttp present Skin: Warm, dry, no erythema, no rash. [] Back: No tenderness, no CVA tenderness. [] Extremities: No tenderness, no cyanosis, no clubbing, ROM intact, no edema. [] Neurologic: Alert and oriented X 3, normal motor function, normal sensory function, no focal deficits noted. [] Psychologic: Affect normal, judgement normal, mood normal. [] Current Patient Data Vital Signs Vital Signs Date Time Temp Pulse Resp B/P (MAP) Pulse Ox O2 Delivery O2 Flow Rate FiO2 12/04/18 15:02 98.4 78 18 98 Room Air EKG EKG [] Radiology/Procedures Radiology/Procedures [address] [address] IMAGING REPORT Signed PATIENT: MARY OSORIO LACCOUNT: [id number] : 1975 LOCATION: ER AGE: 43 SEX: M EXAM STATUS: REG ER ORD. PHYSICIAN: TORRI MARSH DO REASON: right flank pain PROCEDURE: CT ABDOMEN PELVIS WO CONTRAST CT ABDOMEN PELVIS WO CONTRAST History: Right flank pain. Technique: Noncontrast examination of the abdomen and pelvis. Coronal and sagittal reconstructions were performed. Exposure: One or more of the following individualized dose reduction techniques were utilized for this examination: 1. Automated exposure control 2. Adjustment of the mA and/or kV according to patient size 3. Use of iterative reconstruction technique. Comparison: October 05, 2018 Findings: Lower chest: No consolidation or pleural effusion. Decreased right lower lobe pleural-based nodule better identified previously due to slice selection. Abdomen and pelvis: Unremarkable noncontrast appearance of the liver, spleen, pancreas, adrenal glands and gallbladder. No biliary ductal dilatation. Several nonobstructing bilateral renal calculi largest on the right measures 3 mm. No hydronephrosis. No renal, ureteral or urinary bladder stone. Decompressed urinary bladder. No evidence of bowel obstruction. Normal appendix. No pathologic lymphadenopathy. No ascites. Bones: No pathologic osseous lesions. Sacral Tarlov cysts. Impression: 1. No obstructing urolithiasis. 2. Bilateral nonobstructing renal calculi. 3. Decreased right. lower lobe pleural-based nodule. Electronically signed by: Shiv Ortiz DO (12/04/2018 3:31 PM) [facility] Course & Med Decision Making Course & Med Decision Making Pertinent Labs and Imaging studies reviewed. (See chart for details) @1610 - patient updated on lab and imaging results which are acutely unremarkable. The patient was sleeping in the room and I had to wake him up and he has not received any pain medications. He appears comfortable. Workup today fails to reveal any emergent pathology. The patient is stable for discharge at this time. Dragon Disclaimer Dragon Disclaimer This electronic medical record was generated, in whole or in part, using a voice recognition dictation system. Departure Departure: Impression: Primary Impression: Right flank pain Additional Impression: Dysuria Disposition: 01 HOME, SELF-CARE Condition: STABLE Referrals: RISHI JORGENSEN MD (PCP) Patient Instructions: Dysuria, Flank Pain Additional Instructions: Follow-up with your doctor in the next 1-2 days. Return to the emergency Department immediately for new or worsening symptoms. Problem Qualifiers TORRI MARSH DO Dec 04, 2018 15:11
[2018-12-04 15:30] LABS: BASO % 0 % (0-3); EOS # 0.1 x10^3/uL (0.0-0.7); EOS % 1 % (0-3); HEMATOCRIT 43.1 % (39.0-53.0); HEMOGLOBIN 14.5 g/dL (13.0-17.5); LYMPH # 1.8 x10^3/uL (1.0-4.8); LYMPH % 27 % (24-48); MEAN CORPUSCULAR HEMOGLOBIN 32 pg (25-35); MEAN CORPUSCULAR HGB CONC 34 g/dL (31-37); MEAN CORPUSCULAR VOLUME 94 fL (79-100); MONO # 0.3 x10^3/uL (0.0-1.1); MONO % 5 % (0-9); NEUT # 4.4 x10^3uL (1.8-7.7); NEUT % 66 % (31-73); PLATELET COUNT 205 x10^3/uL (140-400); RED BLOOD COUNT 4.59 x10^6/uL (4.30-5.70); RED CELL DISTRIBUTION WIDTH 14.1 % (11.5-14.5); WHITE BLOOD COUNT 6.7 x10^3/uL (4.0-11.0)
--- NOTE | 2018-12-04 15:34 | RAD ---
CT ABDOMEN PELVIS WO CONTRAST History: Right flank pain. Technique: Noncontrast examination of the abdomen and pelvis. Coronal and sagittal reconstructions were performed. Exposure: One or more of the following individualized dose reduction techniques were utilized for this examination: 1. Automated exposure control 2. Adjustment of the mA and/or kV according to patient size 3. Use of iterative reconstruction technique. Comparison: October 05, 2018 Findings: Lower chest: No consolidation or pleural effusion. Decreased right lower lobe pleural-based nodule better identified previously due to slice selection. Abdomen and pelvis: Unremarkable noncontrast appearance of the liver, spleen, pancreas, adrenal glands and gallbladder. No biliary ductal dilatation. Several nonobstructing bilateral renal calculi largest on the right measures 3 mm. No hydronephrosis. No renal, ureteral or urinary bladder stone. Decompressed urinary bladder. No evidence of bowel obstruction. Normal appendix. No pathologic lymphadenopathy. No ascites. Bones: No pathologic osseous lesions. Sacral Tarlov cysts. Impression: 1. No obstructing urolithiasis. 2. Bilateral nonobstructing renal calculi. 3. Decreased right. lower lobe pleural-based nodule. Electronically signed by: Shiv Ortiz DO (12/04/2018 3:31 PM) [facility]
[2018-12-04 15:37] LABS: BACTERIA,URINE 0 /HPF (0-FEW); BILIRUBIN,URINE NEG (NEG); CLARITY,URINE CLEAR; COLOR,URINE YELLOW; GLUCOSE,URINE NEG (NEG); NITRITE,URINE NEG (NEG); RBC,URINE 0 /HPF (0-2); UROBILINOGEN,URINE 0.2 mg/dL (0.2 mg/dL)
[2018-12-04 15:44] LABS: ALBUMIN 4.1 g/dL (3.4-5.0); CALCIUM 9.2 mg/dL (8.5-10.1); DIRECT BILIRUBIN 0.1 mg/dL (0.0-0.2); GFR 82.3; POTASSIUM 3.7 mmol/L (3.5-5.1); TOTAL BILIRUBIN 0.5 mg/dL (0.2-1.0); TOTAL PROTEIN 7.6 g/dL (6.4-8.2)
[2018-12-04 16:32] VITALS: BP 121/80
== END 2018-12-04 16:34 | disposition home or self-care (01) ==
LOC: ER 14:44
DX: R10.9 Unspecified abdominal pain (principal); R30.0 Dysuria; E03.9 Hypothyroidism, unspecified; F17.210 Nicotine dependence, cigarettes, uncomplicated; N20.0 Calculus of kidney; Z88.8 Allergy status to other drugs, medicaments and biological substances; Z88.6 Allergy status to analgesic agent
CPT/HCPCS: 36415; 74176; 80048; 80076; 81001; 85025; 99285-25; J7030

== ENCOUNTER 2019-02-20 17:13 | Emergency (ER) | payer SELFPAY ==
[~2019-02-20] VITALS: Ht 190.5 cm; Wt 80.3 kg
--- NOTE | 2019-02-20 17:53 | RAD ---
Examination: CT ABDOMEN PELVIS WO CONTRAST History: Right flank pain which began 2 days ago Comparison/Correlation: 12/04/2018 CT abdomen and pelvis without contrast Findings: Axial images of the abdomen and pelvis were obtained without contrast. Visualized lung bases are clear. Unenhanced liver, spleen, adrenal glands, and pancreas are normal. Right renal superior pole calyceal calculus measuring 0.4 cm diameter is present. At the posterior aspect of the right renal superior pole calyces, there is a 0.4 standard calculus. There are 3 calculi involving the right renal lower pole each measuring less than 0.3 cm diameter. No radiopaque right ureteral calculus or right collecting system obstruction. Punctate left renal upper pole calyceal calculus is present. At least one left renal inferior pole calyceal calculus is present. No radiopaque left collecting system calculus. No enlarged abdominal or pelvic lymph nodes. No ascites or pelvic free fluid. Gallbladder fossa is unremarkable. Moderate quantity of stool in the colon noted. No inflammatory change about the cecum. Urinary bladder is decompressed with marked circumferential wall thickening. Bony structures are unremarkable. 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 Impression: Nonobstructive renal calculi. No collecting system obstruction. Circumferential wall thickening of the urinary bladder again seen. No surrounding inflammatory change. Correlate for underlying cystitis. PQRS Compliance Statement: One or more of the following individualized dose reduction techniques were utilized for this examination: 1. Automated exposure control 2. Adjustment of the mA and/or kV according to patient size 3. Use of iterative reconstruction technique Electronically signed by: Tito Voss MD (02/20/2019 5:51 PM) [facility]
[2019-02-20 17:54] LABS: BILIRUBIN,URINE NEG (NEG); CLARITY,URINE CLEAR; COLOR,URINE YELLOW; GLUCOSE,URINE NEG (NEG)
[2019-02-20 17:55] LABS: BACTERIA,URINE 0 /HPF (0-FEW); NITRITE,URINE NEG (NEG); RBC,URINE RARE /HPF (0-2); SQUAMOUS EPITHELIAL CELL,UR OCC /LPF; UROBILINOGEN,URINE 0.2 mg/dL (0.2 mg/dL); WBC,URINE RARE /HPF (0-4)
[2019-02-20 17:58] LABS: BASO # 0.1 x10^3/uL (0.0-0.2); BASO % 1 % (0-3); EOS # 0.1 x10^3/uL (0.0-0.7); EOS % 1 % (0-3); HEMATOCRIT 44.3 % (39.0-53.0); HEMOGLOBIN 14.7 g/dL (13.0-17.5); LYMPH # 1.6 x10^3/uL (1.0-4.8); LYMPH % 22 % (24-48); MEAN CORPUSCULAR HEMOGLOBIN 32 pg (25-35); MEAN CORPUSCULAR HGB CONC 33 g/dL (31-37); MEAN CORPUSCULAR VOLUME 95 fL (79-100); MONO # 0.3 x10^3/uL (0.0-1.1); MONO % 5 % (0-9); NEUT # 5.2 x10^3uL (1.8-7.7); NEUT % 72 % (31-73); PLATELET COUNT 221 x10^3/uL (140-400); RED BLOOD COUNT 4.66 x10^6/uL (4.30-5.70); RED CELL DISTRIBUTION WIDTH 14.2 % (11.5-14.5); WHITE BLOOD COUNT 7.2 x10^3/uL (4.0-11.0)
[2019-02-20] MEDS ORDERED: MORPHINE SULFATE 4 MG/ML DISP.SYRIN. IV ONE (18:00)
[2019-02-20] MEDS ORDERED: ONDANSETRON PF 4 MG/2 ML VIAL. IVP ONE (18:00)
[2019-02-20 18:16] LABS: ALBUMIN 4.4 g/dL (3.4-5.0); ALBUMIN/GLOBULIN RATIO 1.2 (1.0-1.7); GFR 82.3; POTASSIUM 3.8 mmol/L (3.5-5.1); TOTAL BILIRUBIN 0.3 mg/dL (0.2-1.0); TOTAL PROTEIN 8.1 g/dL (6.4-8.2)
[2019-02-20 18:31] VITALS: BP 132/81
[2019-02-20] MEDS ORDERED: ONDA4TAB7 PO (18:49)
[2019-02-20] MEDS ORDERED: HYDR-3165 PO (18:49)
[2019-02-20] MEDS ORDERED: MELO7.5T29 PO (18:49)
[2019-02-20] MEDS ORDERED: TAMS0.4C97 PO (18:49)
--- NOTE | 2019-02-20 18:49 | PHYS DOC ---
Past History Past Medical History: Cancer (thyroid), Hypothyroid Past Surgical History: Other Additional Past Surgical Histo: THYROID, CHEST TUMOR REMOVED Smoking: Cigarettes Alcohol Use: None Drug Use: None Adult General Chief Complaint Chief Complaint: FLANK PAIN HPI HPI Patient is a 43-year-old male presents complaining of right flank pain. This is similar to kidney stone that he had several years ago. His previous kidney stone passed on continuously. No previous kidney stone surgeries nor urinary stents. This particular occurrence started 2 days ago. Waxing and waning. Improves with ibuprofen. No nausea or vomiting. No dysuria or hematuria. Pain reported as se igor when it's at its worst.[] Review of Systems Review of Systems Constitutional: Denies fever or chills [] Eyes: Denies change in visual acuity, redness, or eye pain [] HENT: Denies nasal congestion or sore throat [] Respiratory: Denies cough or shortness of breath [] Cardiovascular: No chest pain or palpitations[] GI: Denies abdominal pain, nausea, vomiting, bloody stools or diarrhea [] : Denies dysuria or hematuria, see history of present illness [] Musculoskeletal: Denies back pain or joint pain [] Integument: Denies rash or skin lesions [] Neurologic: Denies headache, focal weakness or sensory changes [] Endocrine: Denies polyuria or polydipsia [] All other systems were reviewed and found to be within normal limits, except as documented in this note. Current Medications Current Medications Current Medications Medications (Trade) Dose Ordered Sig/Jeramine Start Time Stop Time Status Last Admin Dose Admin Morphine Sulfate (Morphine 4mg Syringe) 4 mg 1X ONCE 02/20/19 18:00 02/20/19 18:01 DC 02/20/19 17:59 4 MG Ondansetron HCl (Zofran) 4 mg 1X ONCE 02/20/19 18:00 02/20/19 18:01 DC 02/20/19 17:58 4 MG Allergies Allergies Allergies Coded Allergies Type Severity Reaction Last Updated Verified cyclobenzaprine Allergy Unknown 11/28/17 Yes diphenhydramine Allergy Unknown 11/28/17 Yes ketorolac Allergy Unknown Itching 11/28/17 Yes meloxicam Allergy Unknown 11/28/17 Yes tramadol Allergy Unknown 11/28/17 Yes Physical Exam Physical Exam Constitutional: Well developed, well nourished, no acute distress, non-toxic appearance. [] HENT: Normocephalic, atraumatic, bilateral external ears normal, oropharynx moist, no oral exudates, nose normal. [] Eyes: PERRLA, EOMI, conjunctiva normal, no discharge. [] Neck: Normal range of motion, no tenderness, supple, no stridor. [] Cardiovascular:Heart rate regular rhythm, no murmur [] Lungs & Thorax: Bilateral breath sounds clear to auscultation [] Abdomen: Bowel sounds normal, soft, no tenderness, no masses, no pulsatile masses. [] Skin: Warm, dry, no erythema, no rash. [] Back: No tenderness, no CVA tenderness. [] Extremities: No tenderness, no cyanosis, no clubbing, ROM intact, no edema. [] Neurologic: Alert and oriented X 3, normal motor function, normal sensory function, no focal deficits noted. [] Psychologic: Affect normal, judgement normal, mood normal. [] Current Patient Data Vital Signs Vital Signs Date Time Temp Pulse Resp B/P (MAP) Pulse Ox O2 Delivery O2 Flow Rate FiO2 02/20/19 17:59 20 02/20/19 17:15 98.2 75 99 Room Air Lab Results Laboratory Tests Test 02/20/19 17:20 02/20/19 17:42 Urine Collection Type Unknown Urine Color Yellow Urine Clarity Clear Urine pH 7.0 Urine Specific [place] 1.015 Urine Protein Neg (NEG-TRACE) Urine Glucose (UA) Neg mg/dL (NEG) Urine Ketones (Stick) Neg mg/dL (NEG) Urine Blood Neg (NEG) Urine Nitrite Neg (NEG) Urine Bilirubin Neg (NEG) Urine Urobilinogen Dipstick 0.2 mg/dL (0.2 mg/dL) Urine Leukocyte Esterase Trace (NEG) Urine RBC Rare /HPF (0-2) Urine WBC Rare /HPF (0-4) Urine Squamous Epithelial Cells Occ /LPF Urine Bacteria 0 /HPF (0-FEW) White Blood Count 7.2 x10^3/uL (4.0-11.0) Red Blood Count 4.66 x10^6/uL (4.30-5.70) Hemoglobin 14.7 g/dL (13.0-17.5) Hematocrit 44.3 % (39.0-53.0) Mean Corpuscular Volume 95 fL (79-100) Mean Corpuscular Hemoglobin 32 pg (25-35) Mean Corpuscular Hemoglobin Concent 33 g/dL (31-37) Red Cell Distribution Width 14.2 % (11.5-14.5) Platelet Count 221 x10^3/uL (140-400) Neutrophils (%) (Auto) 72 % (31-73) Lymphocytes (%) (Auto) 22 % (24-48) L Monocytes (%) (Auto) 5 % (0-9) Eosinophils (%) (Auto) 1 % (0-3) Basophils (%) (Auto) 1 % (0-3) Neutrophils # (Auto) 5.2 x10^3uL (1.8-7.7) Lymphocytes # (Auto) 1.6 x10^3/uL (1.0-4.8) Monocytes # (Auto) 0.3 x10^3/uL (0.0-1.1) Eosinophils # (Auto) 0.1 x10^3/uL (0.0-0.7) Basophils # (Auto) 0.1 x10^3/uL (0.0-0.2) Sodium Level 142 mmol/L (136-145) Potassium Level 3.8 mmol/L (3.5-5.1) Chloride Level 102 mmol/L (98-107) Carbon Dioxide Level 30 mmol/L (21-32) Anion Gap 10 (6-14) Blood Urea Nitrogen 9 mg/dL (8-26) Creatinine 1.0 mg/dL (0.7-1.3) Estimated GFR (Cockcroft-Gault) 82.3 BUN/Creatinine Ratio 9 (6-20) Glucose Level 94 mg/dL (70-99) Calcium Level 9.0 mg/dL (8.5-10.1) Total Bilirubin 0.3 mg/dL (0.2-1.0) Aspartate Amino Transferase (AST) 26 U/L (15-37) Alanine Aminotransferase (ALT) 29 U/L (16-63) Alkaline Phosphatase 80 U/L (46-116) Total Protein 8.1 g/dL (6.4-8.2) Albumin 4.4 g/dL (3.4-5.0) Albumin/Globulin Ratio 1.2 (1.0-1.7) EKG EKG [] Radiology/Procedures Radiology/Procedures PROCEDURE: CT ABDOMEN PELVIS WO CONTRAST Examination: CT ABDOMEN PELVIS WO CONTRAST History: Right flank pain which began 2 days ago Comparison/Correlation: 12/04/2018 CT abdomen and pelvis without contrast Findings: Axial images of the abdomen and pelvis were obtained without contrast. Visualized lung bases are clear. Unenhanced liver, spleen, adrenal glands, and pancreas are normal. Right renal superior pole calyceal calculus measuring 0.4 cm diameter is present. At the posterior aspect of the right renal superior pole calyces, there is a 0.4 standard calculus. There are 3 calculi involving the right renal lower pole each measuring less than 0.3 cm diameter. No radiopaque right ureteral calculus or right collecting system obstruction. Punctate left renal upper pole calyceal calculus is present. At least one left renal inferior pole calyceal calculus is present. No radiopaque left collecting system calculus. No enlarged abdominal or pelvic lymph nodes. No ascites or pelvic free fluid. Gallbladder fossa is unremarkable. Moderate quantity of stool in the colon noted. No inflammatory change about the cecum. Urinary bladder is decompressed with marked circumferential wall thickening. Bony structures are unremarkable. 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 Impression: Nonobstructive renal calculi. No collecting system obstruction. Circumferential wall thickening of the urinary bladder again seen. No surrounding inflammatory change. Correlate for underlying cystitis.[] Course & Med Decision Making Course & Med Decision Making Pertinent Labs and Imaging studies reviewed. (See chart for details) ED course: Patient arrived, was placed in bed, and tolerated exam well. He was transferred to and from [place] with any complications. After return lab and imaging findings, these were discussed with the patient voiced understanding. All q uestions were answered. He was discharged in improved condition. Medical decision making: Patient appears have a kidney stone causing these symptoms. There is no evidence of an infection. No evidence of acute renal dysfunction. No evidence of intractable pain.[] Dragon Disclaimer Dragon Disclaimer This electronic medical record was generated, in whole or in part, using a voice recognition dictation system. Departure Departure: Impression: Primary Impression: Kidney stone on right side Disposition: HOME, SELF-CARE Condition: IMPROVED Referrals: PCPJAIME (PCP) Patient Instructions: Diet for Kidney Stones, Kidney Stones Additional Instructions: Drink plenty of fluids. Follow-up with your regular doctor in 2 days. If you do not have a regular doctor list of local clinics will be provided for you. Return to the ER if worsening pain, unable to tolerate liquids or pain medicines, or any other concerns. Scripts Tamsulosin Hcl (FLOMAX) 0.4 Mg Cap.er.24h 1 CAP PO DAILY for kidney stone, #10 CAP Prov: EMORY CASTRO DO 02/20/19 Ondansetron Hcl (ZOFRAN) 4 Mg Tablet 1 TAB PO Q6HRS for nausea or vomiting, #20 TAB Prov: EMORY CASTRO DO 02/20/19 Hydrocodone Bit/Acetaminophen (NORCO 5-325 TABLET) 1 Each Tablet 1-2 TAB PO Q4-6HRS for severe pain, #20 TAB Prov: EMORY CASTRO DO 02/20/19 Meloxicam (MELOXICAM) 7.5 Mg Tablet 7.5 MG PO DAILY for PAIN, #20 TAB Prov: EMORY CASTRO DO 02/20/19 EOMRY CASTRO DO Feb 20, 2019 18:49
== END 2019-02-20 19:00 | disposition home or self-care (01) ==
LOC: ER 17:13
DX: N20.0 Calculus of kidney (principal); E03.9 Hypothyroidism, unspecified; F17.210 Nicotine dependence, cigarettes, uncomplicated; Z88.8 Allergy status to other drugs, medicaments and biological substances; Z88.6 Allergy status to analgesic agent
CPT/HCPCS: 36415; 74176; 80053; 81001; 85025; 87086; 96374; 96375; 99285; J2270; J2405

== ENCOUNTER 2019-03-09 15:46 | Emergency (ER) | payer SELFPAY ==
[~2019-03-09] VITALS: Ht 190.5 cm; Wt 80.3 kg
[~2019-03-09 15:46] MED LIST changes: +MELO7.5T29 PO; +ONDA4TAB7 PO; +TAMS0.4C97 PO
[2019-03-09] MEDS ORDERED: IV NORMAL SALINE 1,000ML 1,000 ML IV SCH (16:28)
--- NOTE | 2019-03-09 16:33 | PHYS DOC ---
Past History Past Medical History: Cancer, Hypothyroid, Renal Disease Past Surgical History: Other Additional Past Surgical Histo: THYROID, CHEST TUMOR REMOVED Smoking: Cigarettes Alcohol Use: None Drug Use: None Adult General Chief Complaint Chief Complaint: NAUSEA[facility]OMITING[facility] HPI Patient is a 43-year-old male who presents with complaint of right-sided flank pain that started 2 days ago. Patient states that pain is progressively getting worse. Patient rates pain at a 7 out of 10. He denies any fever. He does indicate that he has been having some nausea and vomiting for the last 2 days. He denies any diarrhea. Patient states that pain is worsened with palpation and improved by nothing.[] Review of Systems Review of Systems Constitutional: Denies fever or chills [] Respiratory: Denies cough or shortness of breath [] Cardiovascular: No additional information not addressed in HPI [] GI: Complains of right-sided abdominal/flank pain with nausea and vomiting. Denies diarrhea [] : Denies dysuria or hematuria [] Musculoskeletal: Complains of right-sided lower back pain [] All other systems were reviewed and found to be within normal limits, except as documented in this note. Allergies Allergies Allergies Coded Allergies Type Severity Reaction Last Updated Verified cyclobenzaprine Allergy Unknown 11/28/17 Yes diphenhydramine Allergy Unknown 11/28/17 Yes ketorolac Allergy Unknown Itching 11/28/17 Yes meloxicam Allergy Unknown 11/28/17 Yes tramadol Allergy Unknown 11/28/17 Yes Physical Exam Physical Exam Constitutional: Well developed, well nourished, no acute distress, non-toxic appearance. [] HENT: Normocephalic, atraumatic, bilateral external ears normal, oropharynx moist, no oral exudates, nose normal. [] Eyes: PERRLA, EOMI, conjunctiva normal, no discharge. [] Neck: Normal range of motion, no tenderness, supple, no stridor. [] Cardiovascular: Regular rate and rhythm[] Lungs & Thorax: Bilateral breath sounds clear to auscultation [] Abdomen: Bowel sounds normal, soft, with tenderness to palpation in the right lateral flank. No McBurney's point tenderness on exam.[] Skin: Warm, dry, no erythema, no rash. [] Extremities: No tenderness, no cyanosis, no clubbing, ROM intact, no edema. [] Neurologic: Alert and oriented X 3, no focal deficits noted. [] Current Patient Data Vital Signs Vital Signs Date Time Temp Pulse Resp B/P (MAP) Pulse Ox O2 Delivery O2 Flow Rate FiO2 03/09/19 16:20 97.9 85 16 98 Room Air EKG EKG [] Radiology/Procedures Radiology/Procedures [] Impressions: PROCEDURE: CT ABDOMEN PELVIS WO CONTRAST EXAM: CT ABDOMEN/PELVIS WITHOUT CONTRAST. HISTORY: Right flank pain. TECHNIQUE: Computed tomography of the abdomen and pelvis was performed without intravenous contrast. COMPARISON: 02/20/2019. FINDINGS: Lung windows through the visualized portions of the bases reveal mild atelectasis. Median sternotomy changes are partially visualized. Bone windows reveal no suspicious lesions. There is moderately decreased femoral head/neck offset bilaterally consistent with femoroacetabular impingement. There is mild osteoarthritis of both hips. There are no ureteral calculi bilaterally. Multiple right renal calculi measure up to 4 mm. There is no hydronephrosis. There are no suspicious renal lesions without contrast. The prostate is not enlarged. There is diffuse mild bladder wall thickening. The liver, gallbladder, adrenal glands, pancreas and spleen are unremarkable without contrast. There are no pathologically enlarged lymph nodes. There is a circumaortic left renal vein. The appendix is not inflamed. There is no small bowel obstruction. IMPRESSION: 1. Right renal calculi measure up to 4 mm. No ureteral calculi. 2. Bladder wall thickening may reflect chronic outlet obstruction or inflammation. Correlate with urinalysis. *One or more of the following individualized dose reduction techniques were utilized for this examination: 1. Automated exposure control. 2. Adjustment of the mA and/or kV according to patient size. 3. Use of iterative reconstruction technique. Electronically signed by: Janey Lovelace MD (03/09/2019 5:06 PM) [facility] Course & Med Decision Making Course & Med Decision Making Pertinent Labs and Imaging studies reviewed. (See chart for details) [] Dragon Disclaimer Dragon Disclaimer This electronic medical record was generated, in whole or in part, using a voice recognition dictation system. Departure Departure: Impression: Primary Impression: Flank pain Additional Impression: Nausea and vomiting Disposition: 01 HOME, SELF-CARE Condition: STABLE Referrals: PCP,NO (PCP) Patient Instructions: Flank Pain, Nausea and Vomiting Scripts Ondansetron (ONDANSETRON ODT) 4 Mg Tab.rapdis 1 TAB PO PRN Q6-8HRS PRN for NAUSEA, #12 TAB Prov: CHUY DOTSON Jr. DO 03/09/19 Acetaminophen With Codeine (TYLENOL WITH CODEINE #3 TABLET) 1 Each Tablet 1 TAB PO PRN Q6HRS PRN for pain MDD 4 Tablet(s), #12 TAB 0 Refills Prov: CHUY DOTSON Jr. DO 03/09/19 Problem Qualifiers Additional Impression: Nausea and vomiting Vomiting type: unspecified Vomiting Intractability: unspecified Qualified Codes: R11.2 - Nausea with vomiting, unspecified CHUY DOTSON Jr. DO Mar 09, 2019 16:33
[2019-03-09] MEDS ORDERED: ONDANSETRON PF 4 MG/2 ML VIAL. IVP ONE (16:45)
[2019-03-09 17:02] LABS: BASO % 0 % (0-3); EOS # 0.2 x10^3/uL (0.0-0.7); EOS % 2 % (0-3); HEMATOCRIT 42.9 % (39.0-53.0); HEMOGLOBIN 14.1 g/dL (13.0-17.5); LYMPH # 1.8 x10^3/uL (1.0-4.8); LYMPH % 21 % (24-48); MEAN CORPUSCULAR HEMOGLOBIN 31 pg (25-35); MEAN CORPUSCULAR HGB CONC 33 g/dL (31-37); MEAN CORPUSCULAR VOLUME 95 fL (79-100); MONO # 0.6 x10^3/uL (0.0-1.1); MONO % 7 % (0-9); NEUT % 69 % (31-73); PLATELET COUNT 214 x10^3/uL (140-400); RED BLOOD COUNT 4.52 x10^6/uL (4.30-5.70); WHITE BLOOD COUNT 8.7 x10^3/uL (4.0-11.0)
--- NOTE | 2019-03-09 17:09 | RAD ---
EXAM: CT ABDOMEN/PELVIS WITHOUT CONTRAST. HISTORY: Right flank pain. TECHNIQUE: Computed tomography of the abdomen and pelvis was performed without intravenous contrast. COMPARISON: 02/20/2019. FINDINGS: Lung windows through the visualized portions of the bases reveal mild atelectasis. Median sternotomy changes are partially visualized. Bone windows reveal no suspicious lesions. There is moderately decreased femoral head/neck offset bilaterally consistent with femoroacetabular impingement. There is mild osteoarthritis of both hips. There are no ureteral calculi bilaterally. Multiple right renal calculi measure up to 4 mm. There is no hydronephrosis. There are no suspicious renal lesions without contrast. The prostate is not enlarged. There is diffuse mild bladder wall thickening. The liver, gallbladder, adrenal glands, pancreas and spleen are unremarkable without contrast. There are no pathologically enlarged lymph nodes. There is a circumaortic left renal vein. The appendix is not inflamed. There is no small bowel obstruction. IMPRESSION: 1. Right renal calculi measure up to 4 mm. No ureteral calculi. 2. Bladder wall thickening may reflect chronic outlet obstruction or inflammation. Correlate with urinalysis. *One or more of the following individualized dose reduction techniques were utilized for this examination: 1. Automated exposure control. 2. Adjustment of the mA and/or kV according to patient size. 3. Use of iterative reconstruction technique. Electronically signed by: Janey Lovelace MD (03/09/2019 5:06 PM) [facility]
[2019-03-09 17:10] LABS: BACTERIA,URINE 0 /HPF (0-FEW); BILIRUBIN,URINE NEG (NEG); CLARITY,URINE CLEAR; COLOR,URINE STRAW; GLUCOSE,URINE NEG (NEG); NITRITE,URINE NEG (NEG); RBC,URINE 0 /HPF (0-2); UROBILINOGEN,URINE 0.2 mg/dL (0.2 mg/dL); WBC,URINE OCC /HPF (0-4)
[2019-03-09 17:27] LABS: ALBUMIN 4.2 g/dL (3.4-5.0); ALBUMIN/GLOBULIN RATIO 1.2 (1.0-1.7); CALCIUM 9.1 mg/dL (8.5-10.1); CREATININE 0.9 mg/dL (0.7-1.3); POTASSIUM 4.1 mmol/L (3.5-5.1); TOTAL BILIRUBIN 0.4 mg/dL (0.2-1.0); TOTAL PROTEIN 7.7 g/dL (6.4-8.2)
[2019-03-09] MEDS ORDERED: ONDA4TAB12 PO (18:17)
[2019-03-09] MEDS ORDERED: ACET-704 PO (18:17)
[2019-03-09 18:26] VITALS: BP 128/76
== END 2019-03-09 18:26 | disposition home or self-care (01) ==
LOC: ER 15:46
DX: R10.9 Unspecified abdominal pain (principal); R11.2 Nausea with vomiting, unspecified; M54.5 Low back pain; E03.9 Hypothyroidism, unspecified; F17.210 Nicotine dependence, cigarettes, uncomplicated; Z88.8 Allergy status to other drugs, medicaments and biological substances; Z88.6 Allergy status to analgesic agent
CPT/HCPCS: 36415; 74176; 80053; 81001; 85025; 96361; 96374; 99285; J2405; J7030

== ENCOUNTER 2019-03-19 19:12 | Emergency (ER) | payer SELFPAY ==
[~2019-03-19] VITALS: Ht 190.5 cm; Wt 84.0 kg
[~2019-03-19 19:12] MED LIST changes: +ACET-704 PO; +ONDA4TAB12 PO
[2019-03-19] MEDS ORDERED: IV NORMAL SALINE 1,000ML 1,000 ML IV SCH (19:59)
--- NOTE | 2019-03-19 20:02 | PHYS DOC ---
Past History Past Medical History: Hypothyroid Additional Past Medical Histor: THYROID CA WITH THYROID REMOVAL. Past Surgical History: Other Additional Past Surgical Histo: THYROID, CHEST TUMOR REMOVED Smoking: Cigarettes Alcohol Use: None Drug Use: None Adult General Chief Complaint Chief Complaint: FLANK PAIN HPI HPI Patient is a 43 year old male who presents with complaint of right-sided flank pain. Patient states that he has been having continued flank pain for almost 2 weeks. Was seen in the emergency department here at [facility] on March 09, 2019. The patient underwent CT imaging and he stated that he was diagnosed with kidney stones. The patient was advised follow-up with primary doctor as well as urology which has not been done at this time. Patient states that the pain continues along his right flank and right lower abdomen. Patient does note slight stinging with urination. Denies blood in his urine has had no vomiting or fevers associated with symptoms. States he was prescribed Tylenol with Codeine at previous visit with no improvement symptoms. Review of Systems Review of Systems Constitutional: Denies fever or chills [] Eyes: Denies change in visual acuity, redness, or eye pain [] HENT: Denies nasal congestion or sore throat [] Respiratory: Denies cough or shortness of breath [] Cardiovascular: Denies chest pain or edema[] GI: Denies abdominal pain, nausea, vomiting, bloody stools or diarrhea [] : Right flank pain, dysuria[] Musculoskeletal: Denies back pain or joint pain [] Integument: Denies rash or skin lesions [] Neurologic: Denies headache, focal weakness or sensory changes [] All other systems were reviewed and found to be within normal limits, except as documented in this note. Current Medications Current Medications Current Medications Medications (Trade) Dose Ordered Sig/Jermaine Start Time Stop Time Status Last Admin Dose Admin Fentanyl Citrate (Fentanyl 2ml Vial) 50 mcg PRN Q15MIN PRN 03/19/19 20:00 03/20/19 19:59 UNV Ondansetron HCl (Zofran) 4 mg 1X ONCE 03/19/19 20:00 03/19/19 20:01 UNV Sodium Chloride 1,000 ml @ 1,000 mls/hr Q1H 03/19/19 19:59 03/19/19 20:58 UNV Allergies Allergies Allergies Coded Allergies Type Severity Reaction Last Updated Verified cyclobenzaprine Allergy Unknown 11/28/17 Yes diphenhydramine Allergy Unknown 11/28/17 Yes ketorolac Allergy Unknown Itching 11/28/17 Yes meloxicam Allergy Unknown 11/28/17 Yes tramadol Allergy Unknown 11/28/17 Yes Physical Exam Physical Exam Constitutional: Well developed, well nourished, no acute distress, non-toxic appearance. [] HENT: Normocephalic, atraumatic, bilateral external ears normal, oropharynx moist, no oral exudates, nose normal. [] Eyes: PERRLA, EOMI, conjunctiva normal, no discharge. [] Neck: Normal range of motion, no tenderness, supple, no stridor. [] Cardiovascular:Heart rate regular rhythm, no murmur [] Lungs & Thorax: Bilateral breath sounds clear to auscultation [] Abdomen: Bowel sounds normal, soft, right lower quadrant tenderness to palpation, no guarding or rebound tenderness, no masses, no pulsatile masses. [] Skin: Warm, dry, no erythema, no rash. [] Back: No tenderness, no CVA tenderness. [] Extremities: No tenderness, no cyanosis, no clubbing, ROM intact, no edema. [] Neurologic: Alert and oriented X 3, normal motor function, normal sensory function, no focal deficits noted. [] Current Patient Data Vital Signs Vital Signs Date Time Temp Pulse Resp B/P (MAP) Pulse Ox O2 Delivery O2 Flow Rate FiO2 03/19/19 19:31 98.2 68 18 99 Lab Results Laboratory Tests Test 03/19/19 19:35 03/19/19 20:26 Urine Collection Type Unknown Urine Color Yellow Urine Clarity Clear Urine pH 7.0 Urine Specific [place] 1.020 Urine Protein Neg Urine Glucose (UA) Neg mg/dL Urine Ketones (Stick) Neg mg/dL Urine Blood Neg Urine Nitrite Neg Urine Bilirubin Neg Urine Urobilinogen Dipstick 0.2 mg/dL Urine Leukocyte Esterase Neg Urine RBC 0 /HPF Urine WBC Rare /HPF Urine Squamous Epithelial Cells Occ /LPF Urine Bacteria 0 /HPF White Blood Count 7.3 x10^3/uL Red Blood Count 4.44 x10^6/uL Hemoglobin 13.9 g/dL Hematocrit 41.9 % Mean Corpuscular Volume 94 fL Mean Corpuscular Hemoglobin 31 pg Mean Corpuscular Hemoglobin Concent 33 g/dL Red Cell Distribution Width 13.8 % Platelet Count 211 x10^3/uL Neutrophils (%) (Auto) 56 % Lymphocytes (%) (Auto) 33 % Monocytes (%) (Auto) 8 % Eosinophils (%) (Auto) 3 % Basophils (%) (Auto) 1 % Neutrophils # (Auto) 4.1 x10^3uL Lymphocytes # (Auto) 2.4 x10^3/uL Monocytes # (Auto) 0.6 x10^3/uL Eosinophils # (Auto) 0.2 x10^3/uL Basophils # (Auto) 0.1 x10^3/uL Sodium Level 140 mmol/L Potassium Level 3.9 mmol/L Chloride Level 104 mmol/L Carbon Dioxide Level 28 mmol/L Anion Gap 8 Blood Urea Nitrogen 11 mg/dL Creatinine 0.9 mg/dL Estimated GFR (Cockcroft-Gault) 93.0 BUN/Creatinine Ratio 12 Glucose Level 90 mg/dL Calcium Level 9.0 mg/dL Total Bilirubin 0.2 mg/dL Aspartate Amino Transf (AST/SGOT) 7 U/L Alanine Aminotransferase (ALT/SGPT) 27 U/L Alkaline Phosphatase 93 U/L Total Protein 7.5 g/dL Albumin 3.9 g/dL Albumin/Globulin Ratio 1.1 Current Medications Medications (Trade) Dose Ordered Sig/Jermaine Route PRN Reason Start Time Stop Time Status Last Admin Dose Admin Fentanyl Citrate (Fentanyl 2ml Vial) 50 mcg PRN Q15MIN PRN IV PAIN GREATER THAN 3/10 03/19/19 20:00 03/20/19 19:59 03/19/19 21:02 Sodium Chloride 1,000 ml @ 1,000 mls/hr Q1H IV 03/19/19 19:59 03/19/19 20:58 DC 03/19/19 19:59 Ondansetron HCl (Zofran) 4 mg 1X ONCE IVP 03/19/19 20:45 03/19/19 20:46 DC 03/19/19 21:00 EKG EKG Not performed[] Radiology/Procedures Radiology/Procedures [address] [address] IMAGING REPORT Signed PATIENT: MARY OSORIO LACCOUNT: [id number] : 1975 LOCATION: ER AGE: 43 SEX: M EXAM STATUS: REG ER ORD. PHYSICIAN: ERIN SAEED MD REASON: right-sided flank pain, history of kidney stones PROCEDURE: CT ABDOMEN PELVIS WO CONTRAST Exam: CT abdomen and pelvis without contrast INDICATION: Right-sided flank pain TECHNIQUE: Sequential axial images through the abdomen and pelvis obtained without IV contrast. Sagittal and coronal reformatted images were reconstructed from the axial data and reviewed. Comparisons: 03/09/2019 FINDINGS: Heart size is normal. No pericardial effusion. Visualized lung bases are clear. No pleural effusion. Evaluation of solid organs is limited secondary to noncontrast technique. Liver, spleen, pancreas, gallbladder and adrenals are unremarkable. No perinephric inflammation or hydronephrosis. No ureteral calculi are identified. Several nonobstructing renal calculi are noted within the right and left kidney. Bladder is partially distended and not well evaluated. Prostate is not enlarged. Large and small bowel are unremarkable. Appendix is normal. No free intra-abdominal air or fluid. No obstruction. Abdominal aorta has a normal course and caliber. No enlarged abdominal lymph nodes are identified. No suspicious osseous lesions or acute fractures. IMPRESSION: 1. Nonobstructing bilateral renal calculi. No ureteral calculi or evidence for obstructive uropathy. 2. Normal appendix Exposure: One or more of the following in the visualized dose reduction techniques were utilized for this examination: 1. Automated exposure control 2. Adjustment of the MA and/or KV according to patient size 3. Use of iterative of reconstructive technique Electronically signed by: Ruth Weller MD (03/19/2019 9:07 PM) [id number] DICTATED AND SIGNED BY: RUTH WELLER MD DATE: 03/19/192106 CC: ERIN SAEED MD; PCP,NO ~ [] Course & Med Decision Making Course & Med Decision Making Pertinent Labs and Imaging studies reviewed. (See chart for details) Patient's CT imaging was reviewed from previous visit. The patient was found to have an intrarenal stone was causing no obstruction measuring 4 mm at his previous visit. Repeat CT imaging was obtained to assess for possible mobilization of that stone. CT imaging today appears stable compared to previous. The patient shows no evidence of intraureteral stone, hydronephrosis or hydroureter. Treated with IV fentanyl in the emergency department. Etiology of pain symptoms unclear but does not appear to be serious or life-threatening at this time. Symptoms could be related to possible lower lumbar spine pathology versus musculoskeletal pain. Patient appears stable at this time and in no acute distress. Recommended follow-up with primary doctor within the next 2 days for reevaluation. Advised return to emergency department for any worsening symptoms per the patient was understanding and in agreement with treatment plan. Dragon Disclaimer Dragon Disclaimer This electronic medical record was generated, in whole or in part, using a voice recognition dictation system. Departure Departure: Impression: Primary Impression: Flank pain Disposition: HOME, SELF-CARE Condition: IMPROVED Referrals: PCPJAIME (PCP) Patient Instructions: Flank Pain Additional Instructions: Follow-up with your primary doctor in the next 2 days for reevaluation. Return to the emergency department for any worsening symptoms. Scripts Hydrocodone Bit/Acetaminophen (NORCO 5-325 TABLET) 1 Each Tablet 1 TAB PO Q6HRS PRN for PAIN, #12 TAB 0 Refills Prov: ERIN SAEED MD 03/19/19 ERIN SAEED MD Mar 19, 2019 20:02
[2019-03-19 20:40] LABS: BASO # 0.1 x10^3/uL (0.0-0.2); BASO % 1 % (0-3); EOS # 0.2 x10^3/uL (0.0-0.7); EOS % 3 % (0-3); HEMATOCRIT 41.9 % (39.0-53.0); HEMOGLOBIN 13.9 g/dL (13.0-17.5); LYMPH # 2.4 x10^3/uL (1.0-4.8); LYMPH % 33 % (24-48); MEAN CORPUSCULAR HEMOGLOBIN 31 pg (25-35); MEAN CORPUSCULAR HGB CONC 33 g/dL (31-37); MEAN CORPUSCULAR VOLUME 94 fL (79-100); MONO # 0.6 x10^3/uL (0.0-1.1); MONO % 8 % (0-9); NEUT # 4.1 x10^3uL (1.8-7.7); NEUT % 56 % (31-73); PLATELET COUNT 211 x10^3/uL (140-400); RED BLOOD COUNT 4.44 x10^6/uL (4.30-5.70); RED CELL DISTRIBUTION WIDTH 13.8 % (11.5-14.5); WHITE BLOOD COUNT 7.3 x10^3/uL (4.0-11.0)
[2019-03-19] MEDS ORDERED: ONDANSETRON PF 4 MG/2 ML VIAL. IVP ONE (20:45)
[2019-03-19 20:51] LABS: ALBUMIN 3.9 g/dL (3.4-5.0); ALBUMIN/GLOBULIN RATIO 1.1 (1.0-1.7); CREATININE 0.9 mg/dL (0.7-1.3); POTASSIUM 3.9 mmol/L (3.5-5.1); TOTAL BILIRUBIN 0.2 mg/dL (0.2-1.0); TOTAL PROTEIN 7.5 g/dL (6.4-8.2)
[2019-03-19 20:55] LABS: BILIRUBIN,URINE NEG (NEG); CLARITY,URINE CLEAR; COLOR,URINE YELLOW; GLUCOSE,URINE NEG (NEG)
[2019-03-19 20:56] LABS: BACTERIA,URINE 0 /HPF (0-FEW); NITRITE,URINE NEG (NEG); RBC,URINE 0 /HPF (0-2); SQUAMOUS EPITHELIAL CELL,UR OCC /LPF; UROBILINOGEN,URINE 0.2 mg/dL (0.2 mg/dL); WBC,URINE RARE /HPF (0-4)
--- NOTE | 2019-03-19 21:10 | RAD ---
Exam: CT abdomen and pelvis without contrast INDICATION: Right-sided flank pain TECHNIQUE: Sequential axial images through the abdomen and pelvis obtained without IV contrast. Sagittal and coronal reformatted images were reconstructed from the axial data and reviewed. Comparisons: 03/09/2019 FINDINGS: Heart size is normal. No pericardial effusion. Visualized lung bases are clear. No pleural effusion. Evaluation of solid organs is limited secondary to noncontrast technique. Liver, spleen, pancreas, gallbladder and adrenals are unremarkable. No perinephric inflammation or hydronephrosis. No ureteral calculi are identified. Several nonobstructing renal calculi are noted within the right and left kidney. Bladder is partially distended and not well evaluated. Prostate is not enlarged. Large and small bowel are unremarkable. Appendix is normal. No free intra-abdominal air or fluid. No obstruction. Abdominal aorta has a normal course and caliber. No enlarged abdominal lymph nodes are identified. No suspicious osseous lesions or acute fractures. IMPRESSION: 1. Nonobstructing bilateral renal calculi. No ureteral calculi or evidence for obstructive uropathy. 2. Normal appendix Exposure: One or more of the following in the visualized dose reduction techniques were utilized for this examination: 1. Automated exposure control 2. Adjustment of the MA and/or KV according to patient size 3. Use of iterative of reconstructive technique Electronically signed by: Ruth Tilley MD (03/19/2019 9:07 PM) [id number]
[2019-03-19] MEDS ORDERED: HYDR-3165 PO (21:27)
[2019-03-19 21:56] VITALS: BP 129/71
== END 2019-03-19 22:00 | disposition home or self-care (01) ==
LOC: ER 19:12
DX: R10.9 Unspecified abdominal pain (principal); R30.0 Dysuria; E03.9 Hypothyroidism, unspecified; F17.210 Nicotine dependence, cigarettes, uncomplicated; Z88.8 Allergy status to other drugs, medicaments and biological substances; Z88.6 Allergy status to analgesic agent
CPT/HCPCS: 36415; 74176; 80053; 81001; 85025; 96374; 96375; 99285; J2405; J3010; J7030

== ENCOUNTER 2019-07-02 21:35 | Emergency (ER) | payer SELFPAY ==
[~2019-07-02] VITALS: Ht 190.5 cm; Wt 84.0 kg
--- NOTE | 2019-07-02 21:44 | PHYS DOC ---
Past History Past Medical History: Hypothyroid Additional Past Medical Histor: THYROID CA WITH THYROID REMOVAL. Past Surgical History: Other Additional Past Surgical Histo: THYROID, CHEST TUMOR REMOVED Smoking: Cigarettes Alcohol Use: None Drug Use: None Adult General Chief Complaint Chief Complaint: ".. I was going down the stairs and missed a step.. caught myself with my Lt arm .. but carlos hurt my neck and upper back... ".." It happened about 3 hrs.. ago.. but she said I was complaining too much and may made me come in... " HPI HPI Patient is a 44 year old male who presents with above hx and complaints fall and injury to left forearm, neck and upper mid back. Injury occurred approximately 3 hours ago. Patient denies any problems with defecation or urination. Patient is ambulatory. Does have pain along posterior mid cervical line and upper thoracic. There are findings of upper trapezius and cervical muscle spasm. No history immunosuppression. No history of travel. No history of dizziness prior to fall. Patient states follow-up occurred because he slipped on stairs. Pt. follows with Brendan Jeff for care. Review of Systems Review of Systems Constitutional: Denies fever or chills [] Eyes: Denies change in visual acuity, redness, or eye pain [] HENT: Denies nasal congestion or sore throat [] Respiratory: Denies cough or shortness of breath [] Cardiovascular: No additional information not addressed in HPI [] GI: Denies abdominal pain, nausea, vomiting, bloody stools or diarrhea [] : Denies dysuria or hematuria [] Musculoskeletal: Complaints of cervical and upper back pain and left forearm pain. Integument: Denies rash or skin lesions [] Neurologic: Denies headache, focal weakness or sensory changes [] Endocrine: Denies polyuria or polydipsia [] All other systems were reviewed and found to be within normal limits, except as documented in this note. Family History Family History Noncontributory Current Medications Current Medications See nursing for home meds Allergies Allergies Allergies Coded Allergies Type Severity Reaction Last Updated Verified cyclobenzaprine Allergy Unknown 11/28/17 Yes diphenhydramine Allergy Unknown 11/28/17 Yes ketorolac Allergy Unknown Itching 11/28/17 Yes meloxicam Allergy Unknown 11/28/17 Yes tramadol Allergy Unknown 8/15/18 Yes Physical Exam Physical Exam Constitutional: Moderate acute distress, non-toxic appearance. [] HENT: Normocephalic, , bilateral external ears normal, oropharynx moist, no oral exudates, nose normal. [] Eyes: PERRLA, EOMI, conjunctiva normal, no discharge. [] Neck: Normal range of motion, paracervical muscle tenderness, supple, no stridor. [] Old surgical scar Cardiovascular:Heart rate regular rhythm, no murmur [] Lungs & Thorax: Bilateral breath sounds equal apex with scattered wheezes on auscultation []Old surgical scar. Abdomen: Bowel sounds normal, soft, no tenderness, no masses, no pulsatile masses. [] Skin: Warm, dry, no erythema, no rash. [] Back: Cervical and trapezius muscle spasm and tenderness, no CVA tenderness. [] Extremities: No tenderness, no cyanosis, no clubbing, ROM intact, no edema. [] Left forearm tenderness. Right-hand dominant. Decontamination Technician equal. Neurologic: Alert and oriented X 3, normal motor function, normal sensory function, no focal deficits noted. [] Psychologic: Affect anxious, judgement normal, mood normal. [] EKG EKG [] Radiology/Procedures Radiology/Procedures [address] [address] IMAGING REPORT Signed PATIENT: MARY OSORIO LACCOUNT: [id number] : 1975 LOCATION: ER AGE: 44 SEX: M EXAM STATUS: REG ER ORD. PHYSICIAN: VIGNESH AKINS MD REASON: Fall today, injury to Lt forearm, pain PROCEDURE: FOREARM LEFT Two-view left forearm dated 07/02/2019. No comparison available. CLINICAL INDICATION: Pain after fall. FINDINGS: 2 views left forearm show normal bony alignment. No displaced fracture. No acute osseous or articular abnormality. No periostitis or bone destruction. IMPRESSION: No acute findings. Electronically signed by: Vivek Myers MD (07/02/2019 10:52 PM) [id number] DICTATED AND SIGNED BY: VIVEK MYERS MD DATE: 07/02/19 2252 CC: VIGNESH AKINS MD; [facility] ~[][address] [address] IMAGING REPORT Signed PATIENT: MARY OSORIOOUNT: [id number] : 1975 LOCATION: ER AGE: 44 SEX: M EXAM STATUS: REG ER ORD. PHYSICIAN: VIGNESH AKINS MD REASON: Fall down 7 steps, neck and upper back pain PROCEDURE: CT CERVICAL SPINE WO CONTRAST CT THORACIC SPINE WO CONTRAST, CT CERVICAL SPINE WO CONTRAST dated 07/02/2019 10:18 PM Indication: Pain, fall downstairs upper back pain, neck pain Comparison: No comparison is available. Technique: Contiguous axial imaging of the cervical and thoracic spine performed with thin cut coronal and sagittal reconstruction. One or more of the following individualized dose reduction techniques were utilized for this examination: 1. Automated exposure control 2. Adjustment of the mA and/or kV according to patient size 3. Use of iterative reconstruction technique Findings: Images of the cervical spine show normal sagittal alignment. Vertebral body heights are maintained. No prevertebral soft tissue swelling. Posterior elements are intact. No evidence of fracture. Mild endplate hypertrophic changes with multilevel uncovertebral spurring, greatest at C3-C4, C4-C5 and C5-C6. There is mild central canal narrowing at C5-C6. No significant foraminal compromise. Visualized soft tissue structures are unremarkable. Images of the thoracic spine show normal sagittal alignment. Vertebral body heights are maintained. Posterior elements are intact. No evidence of fracture. Mild endplate hypertrophic changes throughout with multilevel small Schmorl's nodes. Multilevel facet arthropathy. No apparent focal disc herniation. The bony canal and foramen are adequate. Imaged portions of the pulmonary parenchyma unremarkable. There is a 4 mm calcific stone at the upper pole right kidney, nonobstructive. IMPRESSION: 1. No evidence of cervical or thoracic spine fracture or malalignment. 2. Mild multilevel spondylosis. 3. Right-sided nephrolithiasis, nonobstructive. Electronically signed by: Vivek Myers MD (07/02/2019 11:01 PM) [id number] [address] [address] IMAGING REPORT Signed PATIENT: MARY OSORIO: [id number] : 1975 LOCATION: ER AGE: 44 SEX: M EXAM STATUS: REG ER ORD. PHYSICIAN: VIGNESH AKINS MD REASON: Fall down stairs, upper chest and back pain PROCEDURE: CHEST PA & LATERAL Two-view chest dated 07/02/2019. Comparison made to 08/09/2018. Clinical indication: Pain after fall. FINDINGS: PA and lateral views obtained. Heart and mediastinal contours are stable. Patient is status post median sternotomy. Lungs are hyperinflated but otherwise clear. No consolidation or pleural effusion. No pneumothorax. IMPRESSION: No acute radiographic abnormality. Stable findings compared to 08/09/2018. Electronically signed by: Vivek Myers MD (07/02/2019 10:50 PM) [id number] DICTATED AND SIGNED BY: VIVEK MYERS MD DATE: 07/02/19 8618 CC: VIGNESH AKINS MD; [facility] ~ Course & Med Decision Making Course & Med Decision Making Pertinent Labs and Imaging studies reviewed. (See chart for details) Patient use ice packs as needed for next 3 days. After 3 days advance to moist heat. Take Tylenol and ibuprofen for pain. For marked pain may take Vicoprofen up 4 times a day. Follow-up primary care. Return if any concerns. Patient encouraged to stop smoking. Impression: 1. Contusions 2. Cervical and upper back sprain strain 3. Tobacco use [] Dragon Disclaimer Dragon Disclaimer This electronic medical record was generated, in whole or in part, using a voice recognition dictation system. Departure Departure: Disposition: HOME/RESIDENCE PRIOR TO ADM Condition: STABLE Referrals: [facility] (PCP) Scripts Hydrocodone/Ibuprofen (HYDROCODONE-IBUPROFEN 7.5-200 ) 1 Each Tablet 1 TAB PO PRN Q6HRS PRN for PAIN, #30 TAB 0 Refills Prov: VIGNESH AKINS MD 07/02/19 Sowmya Disclaimer This chart was dictated in whole or in part using Voice Recognition software in a busy, high-work load, and often noisy Emergency Department environment. It may contain unintended and wholly unrecognized errors or omissions. VIGNESH AKINS MD Jul 02, 2019 21:44
[2019-07-02] MEDS ORDERED: HYDROcodon/IBUPROFEN 7.5/200MG 1 TAB TABLET PO ONE (22:30)
--- NOTE | 2019-07-02 22:53 | RAD ---
Two-view chest dated 07/02/2019. Comparison made to 08/09/2018. Clinical indication: Pain after fall. FINDINGS: PA and lateral views obtained. Heart and mediastinal contours are stable. Patient is status post median sternotomy. Lungs are hyperinflated but otherwise clear. No consolidation or pleural effusion. No pneumothorax. IMPRESSION: No acute radiographic abnormality. Stable findings compared to 08/09/2018. Electronically signed by: Vivek Myers MD (07/02/2019 10:50 PM) [id number]
--- NOTE | 2019-07-02 22:55 | RAD ---
Two-view left forearm dated 07/02/2019. No comparison available. CLINICAL INDICATION: Pain after fall. FINDINGS: 2 views left forearm show normal bony alignment. No displaced fracture. No acute osseous or articular abnormality. No periostitis or bone destruction. IMPRESSION: No acute findings. Electronically signed by: Vivek Myers MD (07/02/2019 10:52 PM) [id number]
--- NOTE | 2019-07-02 23:04 | RAD ---
CT THORACIC SPINE WO CONTRAST, CT CERVICAL SPINE WO CONTRAST dated 07/02/2019 10:18 PM Indication: Pain, fall downstairs upper back pain, neck pain Comparison: No comparison is available. Technique: Contiguous axial imaging of the cervical and thoracic spine performed with thin cut coronal and sagittal reconstruction. One or more of the following individualized dose reduction techniques were utilized for this examination: 1. Automated exposure control 2. Adjustment of the mA and/or kV according to patient size 3. Use of iterative reconstruction technique Findings: Images of the cervical spine show normal sagittal alignment. Vertebral body heights are maintained. No prevertebral soft tissue swelling. Posterior elements are intact. No evidence of fracture. Mild endplate hypertrophic changes with multilevel uncovertebral spurring, greatest at C3-C4, C4-C5 and C5-C6. There is mild central canal narrowing at C5-C6. No significant foraminal compromise. Visualized soft tissue structures are unremarkable. Images of the thoracic spine show normal sagittal alignment. Vertebral body heights are maintained. Posterior elements are intact. No evidence of fracture. Mild endplate hypertrophic changes throughout with multilevel small Schmorl's nodes. Multilevel facet arthropathy. No apparent focal disc herniation. The bony canal and foramen are adequate. Imaged portions of the pulmonary parenchyma unremarkable. There is a 4 mm calcific stone at the upper pole right kidney, nonobstructive. IMPRESSION: 1. No evidence of cervical or thoracic spine fracture or malalignment. 2. Mild multilevel spondylosis. 3. Right-sided nephrolithiasis, nonobstructive. Electronically signed by: Vivek Myers MD (07/02/2019 11:01 PM) [id number]
[2019-07-02] MEDS ORDERED: HYDR-1179 PO (23:23)
[2019-07-02 23:35] VITALS: BP 166/92
== END 2019-07-02 23:35 | disposition home or self-care (01) ==
LOC: ER 21:35
DX: M54.2 Cervicalgia (principal); M54.6 Pain in thoracic spine; M79.632 Pain in left forearm; S13.4XXA Sprain of ligaments of cervical spine, initial encounter; W10.8XXA Fall (on) (from) other stairs and steps, initial encounter; Y92.008 Other place in unspecified non-institutional (private) residence as the place of occurrence of the external cause; Z72.0 Tobacco use
CPT/HCPCS: 71046; 72125; 72128; 73090; 99285

== ENCOUNTER 2019-09-11 21:34 | Emergency (ER) | payer SELFPAY ==
[~2019-09-11] VITALS: Ht 190.5 cm; Wt 84.0 kg
--- NOTE | 2019-09-11 21:39 | PHYS DOC ---
Past History Past Medical History: Hypothyroid, Kidney Stones Additional Past Medical Histor: THYROID CA WITH THYROID REMOVAL. Past Surgical History: Other Additional Past Surgical Histo: THYROID, CHEST TUMOR REMOVED Smoking: Cigarettes Alcohol Use: None Drug Use: None General Adult HPI: HPI: "...I ve had so many kidney stones... maybe 25 or more... to day pain in on the Rt... radiated down into my pelvis... " Patient is a 44 year old male who presents with above hx and complaints of right flank and abdomen pain. Pain has come on acutely and feels just like prior episodes of kidney stones. Patient has had over 25 episodes of passing kidney stones. Patient denies any trauma. No recent travel outside the [facility] does have plans to move to [facility] in the near future. No history of significant ill contacts. No history of trauma. No history of bad food intake. Patient normally follows with Dr. Jorgensen. Review of Systems: Review of Systems: Constitutional: Denies fever or chills Eyes: Denies change in visual acuity HENT: Denies nasal congestion or sore throat Respiratory: Denies cough or shortness of breath Cardiovascular: Denies chest pain or edema GI: Complains of nausea and right flank abdomen pain : Denies dysuria Musculoskeletal: Right flank back pain. Denies joint pain Integument: Denies rash Neurologic: Denies headache, focal weakness or sensory changes Endocrine: Denies polyuria or polydipsia Lymphatic: Denies swollen glands Psychiatric: Denies depression or anxiety Heart Score: Risk Factors: Risk Factors: DM, Current or recent (<one month) smoker, HTN, HLP, family history of CAD, obesity. Risk Scores: Score 0 - 3: 2.5% MACE over next 6 weeks - Discharge Home Score 4 - 6: 20.3% MACE over next 6 weeks - Admit for Clinical Observation Score 7 - 10: 72.7% MACE over next 6 weeks - Early Invasive Strategies Family History: Family History: Noncontributory to presentation Current Medications: Current Meds: See nursing for home meds Allergies: Allergies: Allergies Coded Allergies Type Severity Reaction Last Updated Verified cyclobenzaprine Allergy Unknown 11/28/17 Yes diphenhydramine Allergy Unknown 11/28/17 Yes ketorolac Allergy Unknown Itching 11/28/17 Yes meloxicam Allergy Unknown 11/28/17 Yes tramadol Allergy Unknown 11/28/17 Yes Physical Exam: PE: Constitutional:, no acute distress, non-toxic appearance. [] HENT: Normocephalic, atraumatic, bilateral external ears normal, oropharynx moist, no oral exudates, nose normal. [] Eyes: PERRLA, EOMI, conjunctiva normal, no discharge. [] Neck: Normal range of motion, no tenderness, supple, no stridor. [] Cardiovascular:Heart rate regular rhythm, no murmur [] Lungs & Thorax: Bilateral breath sounds clear to auscultation [] Abdomen: Bowel sounds decreased, soft, right flank tenderness on percussion, no masses, no pulsatile masses. Distended. Declines rectal exam at this time. No focal areas or rebound. Skin: Warm, dry, no erythema, no rash. [] Back: No tenderness, right CVA tenderness. [] Extremities: No tenderness, no cyanosis, no clubbing, ROM intact, no edema. [No true psoas sign. Neurologic: Alert and oriented X 3, normal motor function, normal sensory function, no focal deficits noted. [] Psychologic: Affect normal, judgement normal, mood normal. [] EKG: EKG: [] Radiology/Procedures: Radiology/Procedures: [[place] [address] IMAGING REPORT Signed PATIENT: MARY OSORIO LACCOUNT: [id number] : 1975 LOCATION: ER AGE: 44 SEX: M EXAM STATUS: REG ER ORD. PHYSICIAN: VIGNESH AKINS MD REASON: Severe right sided abdomen and flank pain. Hx: Kidney stones PROCEDURE: ACUTE ABDOMEN SERIES ACUTE ABDOMEN SERIES INDICATION: Reason: Severe right sided abdomen and flank pain. Hx: Kidney stones / Spl. Instructions: / History: . COMPARISON STUDY: None. FINDINGS: Lungs: Normal lung volume. No pulmonary mass or consolidation. The tracheobronchial tree and hilar structures are normal. Pleura: No pleural effusion or pneumothorax. Heart and Mediastinum: Normal cardiac size. Great vessels of the thorax are normal. Median sternotomy. Abdomen: Nonobstructive bowel gas pattern. Moderate colonic stool burden. Calcification overlying the right kidney measuring 5 mm, possibly renal calculus. Pelvic phleboliths. IMPRESSION: 1. 5 mm calcification overlying the right kidney, possibly renal calculus. 2. Nonobstructive bowel gas pattern. 3. No focal airspace disease. Electronically signed by: Phong Govea MD (09/11/2019 10:32 PM) [id number] DICTATED AND SIGNED BY: PHONG GOVEA MD DATE: 09/11/192231 CC: VIGNESH AKINS MD; RISHI JORGENSEN MD ~ ][address] [address] IMAGING REPORT Signed PATIENT: MARY OSORIO LACCOUNT: [id number] : 1975 LOCATION: ER AGE: 44 SEX: M EXAM STATUS: REG ER ORD. PHYSICIAN: VIGNESH AKINS MD REASON: Severe right sided abdomen and flank pain. Hx: Kidney stones PROCEDURE: CT ABDOMEN PELVIS WO CONTRAST CT ABDOMEN PELVIS WO CONTRAST INDICATION: Reason: Severe right sided abdomen and flank pain. Hx: Kidney stones / Spl. Instructions: / History: EXAM: Noncontrast CT of the abdomen and pelvis. Coronal and sagittal reformatted images were performed. PQRS compliance statement: One or more of the following individualized dose reduction techniques were utilized for this examination: 1. Automated exposure control 2. Adjustment of the mA and/or kV according to patient size 3. Use of iterative reconstruction technique COMPARISON: 03/19/2019 FINDINGS: No free air, free fluid, or fluid collection. Lower chest: The visualized lower lungs are aerated. No pleural or pericardial effusion. ABDOMEN: Liver: The noncontrast liver is homogeneous in attenuation. Gallbladder and biliary: Normal gallbladder without radiopaque stone. Normal caliber bile ducts. Spleen: Normal spleen. Pancreas: The noncontrast pancreas is homogeneous in attenuation without peripancreatic inflammatory changes. Adrenal glands: Normal adrenal glands. Kidneys and ureters: No hydronephrosis. Bilateral nonobstructive renal calculi measuring up to 5 mm on the right and 2 mm on the left. GI tract: The stomach is decompressed and poorly evaluated. Normal caliber small bowel and colon. Normal appendix. Vascular structures: Normal caliber abdominal aorta. Lymph nodes: No lymphadenopathy in the abdomen or pelvis. PELVIS: Genitourinary system: Normal bladder. SKELETAL STRUCTURES AND SOFT TISSUES: No fracture or destructive lesion in the visualized skeleton. IMPRESSION: No hydronephrosis. Bilateral nonobstructive renal calculi. Electronically signed by: Phong Govea MD (09/11/2019 10:17 PM) [id number] DICTATED AND SIGNED BY: PHONG GOVEA MD DATE: 09/11/192216 CC: VIGNESH AKINS MD; RISHI JORGENSEN MD ~ Course & Med Decision Making: Course & Med Decision Making Pertinent Labs and Imaging studies reviewed. (See chart for details) Clear fluid diet only. No solids or milk productx x 2 days. Push fluids. Tylenol and Ibuprofen for pain. Marked pain take Vicoprofen up to 4 x day. Zofran for active vomiting. up to 4 x day. Follow up with Dr. Jorgensen. Impression: 1. Abdomen Pain 2..Renal Colic Complaints 3. Tobacco Use 4. Constipation [] Dragon Disclaimer: Dragon Disclaimer: This electronic medical record was generated, in whole or in part, using a voice recognition dictation system. Departure Departure: Disposition: 01 HOME/RESIDENCE PRIOR TO ADM Condition: STABLE Referrals: RISHI JORGENSEN MD (PCP) Scripts Hydrocodone/Ibuprofen (HYDROCODONE-IBUPROFEN 7.5-200 ) 1 Each Tablet 1 TAB PO PRN Q6HRS PRN for PAIN, #30 TAB 0 Refills Prov: VIGNESH AKINS MD 09/11/19 Dragon Disclaimer This chart was dictated in whole or in part using Voice Recognition software in a busy, high-work load, and often noisy Emergency Department environment. It may contain unintended and wholly unrecognized errors or omissions. Dragon Disclaimer This chart was dictated in whole or in part using Voice Recognition software in a busy, high-work load, and often noisy Emergency Department environment. It may contain unintended and wholly unrecognized errors or omissions. VIGNESH AKINS MD September 11, 2019 21:39
[2019-09-11] MEDS ORDERED: IV RINGERS SOLUTION,LACTATED 1,000 ML IV SCH (21:40)
[2019-09-11] MEDS ORDERED: FAMOTIDINE 20 MG/2 ML VIAL IVP ONE (21:45)
[2019-09-11] MEDS ORDERED: ONDANSETRON PF 4 MG/2 ML VIAL. IVP ONE (21:45)
[2019-09-11] MEDS ORDERED: MORPHINE SULFATE 10 MG/ML SYRINGE. SQ ONE (22:15)
--- NOTE | 2019-09-11 22:20 | RAD ---
CT ABDOMEN PELVIS WO CONTRAST INDICATION: Reason: Severe right sided abdomen and flank pain. Hx: Kidney stones / Spl. Instructions: / History: EXAM: Noncontrast CT of the abdomen and pelvis. Coronal and sagittal reformatted images were performed. PQRS compliance statement: One or more of the following individualized dose reduction techniques were utilized for this examination: 1. Automated exposure control 2. Adjustment of the mA and/or kV according to patient size 3. Use of iterative reconstruction technique COMPARISON: 03/19/2019 FINDINGS: No free air, free fluid, or fluid collection. Lower chest: The visualized lower lungs are aerated. No pleural or pericardial effusion. ABDOMEN: Liver: The noncontrast liver is homogeneous in attenuation. Gallbladder and biliary: Normal gallbladder without radiopaque stone. Normal caliber bile ducts. Spleen: Normal spleen. Pancreas: The noncontrast pancreas is homogeneous in attenuation without peripancreatic inflammatory changes. Adrenal glands: Normal adrenal glands. Kidneys and ureters: No hydronephrosis. Bilateral nonobstructive renal calculi measuring up to 5 mm on the right and 2 mm on the left. GI tract: The stomach is decompressed and poorly evaluated. Normal caliber small bowel and colon. Normal appendix. Vascular structures: Normal caliber abdominal aorta. Lymph nodes: No lymphadenopathy in the abdomen or pelvis. PELVIS: Genitourinary system: Normal bladder. SKELETAL STRUCTURES AND SOFT TISSUES: No fracture or destructive lesion in the visualized skeleton. IMPRESSION: No hydronephrosis. Bilateral nonobstructive renal calculi. Electronically signed by: Charlie Govea MD (09/11/2019 10:17 PM) [id number]
--- NOTE | 2019-09-11 22:35 | RAD ---
ACUTE ABDOMEN SERIES INDICATION: Reason: Severe right sided abdomen and flank pain. Hx: Kidney stones / Spl. Instructions: / History: . COMPARISON STUDY: None. FINDINGS: Lungs: Normal lung volume. No pulmonary mass or consolidation. The tracheobronchial tree and hilar structures are normal. Pleura: No pleural effusion or pneumothorax. Heart and Mediastinum: Normal cardiac size. Great vessels of the thorax are normal. Median sternotomy. Abdomen: Nonobstructive bowel gas pattern. Moderate colonic stool burden. Calcification overlying the right kidney measuring 5 mm, possibly renal calculus. Pelvic phleboliths. IMPRESSION: 1. 5 mm calcification overlying the right kidney, possibly renal calculus. 2. Nonobstructive bowel gas pattern. 3. No focal airspace disease. Electronically signed by: Charlie Govea MD (09/11/2019 10:32 PM) [id number]
[2019-09-11 22:39] LABS: COLOR,URINE YELLOW
[2019-09-11 22:40] LABS: BILIRUBIN,URINE NEG (NEG); CLARITY,URINE CLEAR; GLUCOSE,URINE NEG (NEG); NITRITE,URINE NEG (NEG); UROBILINOGEN,URINE 0.2 mg/dL (0.2 mg/dL)
[2019-09-11 22:41] LABS: BASO % 1 % (0-3); EOS # 0.1 x10^3/uL (0.0-0.7); EOS % 1 % (0-3); HEMATOCRIT 42.4 % (39.0-53.0); HEMOGLOBIN 14.5 g/dL (13.0-17.5); LYMPH # 1.6 x10^3/uL (1.0-4.8); LYMPH % 25 % (24-48); MEAN CORPUSCULAR HEMOGLOBIN 32 pg (25-35); MEAN CORPUSCULAR HGB CONC 34 g/dL (31-37); MEAN CORPUSCULAR VOLUME 94 fL (79-100); MONO # 0.4 x10^3/uL (0.0-1.1); MONO % 6 % (0-9); NEUT # 4.4 x10^3uL (1.8-7.7); NEUT % 68 % (31-73); PLATELET COUNT 193 x10^3/uL (140-400); RED BLOOD COUNT 4.51 x10^6/uL (4.30-5.70); RED CELL DISTRIBUTION WIDTH 13.9 % (11.5-14.5); WHITE BLOOD COUNT 6.4 x10^3/uL (4.0-11.0)
[2019-09-11 22:47] LABS: RBC,URINE 0 /HPF (0-2); WBC,URINE 0 /HPF (0-4)
[2019-09-11 22:48] LABS: CALCIUM 9.1 mg/dL (8.5-10.1); CREATININE 1.1 mg/dL (0.7-1.3); GFR 73.4; POTASSIUM 3.9 mmol/L (3.5-5.1)
[2019-09-11 22:48] LABS: BACTERIA,URINE 0 /HPF (0-FEW); SQUAMOUS EPITHELIAL CELL,UR OCC /LPF
[2019-09-11 22:54] LABS: ALBUMIN 4.4 g/dL (3.4-5.0); DIRECT BILIRUBIN 0.1 mg/dL (0.0-0.2); TOTAL BILIRUBIN 0.4 mg/dL (0.2-1.0); TOTAL PROTEIN 7.6 g/dL (6.4-8.2)
[2019-09-11] MEDS ORDERED: MAGNESIUM HYDROXIDE 2,400 MG/30 ML ORAL.SUSP. PO ONE (23:00)
[2019-09-11 23:35] VITALS: BP 135/85
[2019-09-11] MEDS ORDERED: HYDR-1179 PO (23:53)
--- NOTE | 2019-09-12 01:13 | EKG ---
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
== END 2019-09-12 | disposition home or self-care (01) ==
LOC: ER 21:34
DX: K59.00 Constipation, unspecified (principal); N23 Unspecified renal colic; E03.9 Hypothyroidism, unspecified; F17.210 Nicotine dependence, cigarettes, uncomplicated; Z87.442 Personal history of urinary calculi; Z88.8 Allergy status to other drugs, medicaments and biological substances; Z88.6 Allergy status to analgesic agent
CPT/HCPCS: 36415; 74022; 74176; 80048; 80076; 81001; 82150; 82550; 83690; 84484; 85025; 85610; 85730; 93005; 96372; 96374; 96375; 99285; J2270; J2405; J3490; J7120

== ENCOUNTER 2019-09-28 22:47 | Emergency (ER) | payer SELFPAY ==
[~2019-09-28] VITALS: Ht 190.5 cm; Wt 86.0 kg
[2019-09-28 22:54] VITALS: BP 124/87
--- NOTE | 2019-09-28 22:59 | PHYS DOC ---
Past History Past Medical History: Cancer, Hypothyroid, Kidney Stones Additional Past Medical Histor: THYROID CA WITH THYROID REMOVAL. 2014 Past Surgical History: Other Additional Past Surgical Histo: THYROID, CHEST TUMOR REMOVED Smoking: Cigarettes Alcohol Use: None Drug Use: None General Adult EDM: Chief Complaint: NAUSEA/VOMITING/DIARRHEA HPI: HPI: ".. He been vomiting almost every 15 min. to night.. I did give him one of my Zofran 4..it helped.. we have eaten the same foods.. I am not sick..no other exposure or bad .. food.. he has followed with [facility] in the past.. He had thyroid cancer removed.. 2013.. the surgery caused problems with his memory...and other day at [facility] .. they think they may have found another cancer spots.. Patient is a 44 year old male who presents with above hx and complaints of nausea, vomiting . No diarrhea but is passing gas. Patient denies any intake of bad food. Patient denies any recent travel. No specific ill contacts. No history immunosuppression. Does have a significant medical history of thyroidectomy in 2013 which caused some brain injury during surgery. Patient had no chemo or radiation treatment after surgery. The patient reportedly has chronic memory issues. Patient recently seen at [facility] after he got his hand caught in a sliding door. Patient also had a recent evaluation for chest pain at [facility] . Patient normally follows at [facility] with Dr. Jorgensen. Did have some reduction in his episodes of vomiting tonight with 4 mg of Zofran. Patient does continue to smoke tobacco. Review of Systems: Review of Systems: Constitutional: Denies fever or chills Eyes: Denies change in visual acuity HENT: Denies nasal congestion or sore throat Respiratory: Denies cough or shortness of breath Cardiovascular: Denies chest pain or edema GI: Complains of abdominal pain, nausea, vomiting,. Denies bloody stools or diarrhea : Denies dysuria Musculoskeletal: Denies back pain or joint pain Integument: Denies rash Neurologic: Denies headache, focal weakness or sensory changes Endocrine: Denies polyuria or polydipsia Lymphatic: Denies swollen glands Psychiatric: Denies depression or anxiety Heart Score: HEART Score for Chest Pain: HEART Score for Chest Pain Response (Comments) Value History Moderately Suspicious 1 ECG Nonspecific Repolarizatio 1 Age < 45 0 Risk Factors 1 or 2 Risk Factors 1 Troponin < Normal Limit 0 Total 3 Risk Factors: Risk Factors: DM, Current or recent (<one month) smoker, HTN, HLP, family history of CAD, obesity. Risk Scores: Score 0 - 3: 2.5% MACE over next 6 weeks - Discharge Home Score 4 - 6: 20.3% MACE over next 6 weeks - Admit for Clinical Observation Score 7 - 10: 72.7% MACE over next 6 weeks - Early Invasive Strategies Family History: Family History: Non-contributory to presentation Current Medications: Current Meds: See nursing for home meds Allergies: Allergies: Allergies Coded Allergies Type Severity Reaction Last Updated Verified cyclobenzaprine Allergy Unknown 11/28/17 Yes diphenhydramine Allergy Unknown 11/28/17 Yes ketorolac Allergy Unknown Itching 11/28/17 Yes meloxicam Allergy Unknown 11/28/17 Yes tramadol Allergy Unknown 11/28/17 Yes Physical Exam: PE: Constitutional: Moderate acute distress, non-toxic appearance. [] HENT: Normocephalic, atraumatic, bilateral external ears normal, oropharynx dry, no oral exudates, nose normal. [] Eyes: PERRLA, EOMI, conjunctiva normal, no discharge. [] Neck: Normal range of motion, no tenderness, supple, no stridor. Old surgery s car Cardiovascular: Bradycardia heart rate regular rhythm, no murmur [] Lungs & Thorax: Bilateral breath sounds equal apex with scattered wheezes on auscultation [] midline sternal scar Abdomen: Bowel sounds hyperactive, , soft, epigastric tenderness, no masses, no pulsatile masses. Old surgery scars. Rebound to epigastric area Skin: Warm, dry, no erythema, no rash. [] Back: No tenderness, no CVA tenderness. [] Extremities: No tenderness, no cyanosis, no clubbing, ROM intact, no edema. No psoas sign. Neurologic: Alert and oriented X 3, normal motor function, normal sensory function, no focal deficits noted. [] Psychologic: Affect anxious , judgement normal, mood normal. [] EKG: EKG: My interpretation EKG shows a sinus bradycardia at 60 bpm. There is some nonspecific contour changes anterior septal region. But no findings of acute STEMI with contralateral changes [] Radiology/Procedures: Radiology/Procedures: [][address] [address] IMAGING REPORT Signed PATIENT: MARY OSORIO LACCOUNT: [id number] : 1975 LOCATION: ER AGE: 44 SEX: M EXAM STATUS: REG ER ORD. PHYSICIAN: VIGNESH AKINS MD REASON: nv, epigastric pain. PROCEDURE: ABDOMEN SUPINE & UPRIGHT EXAM: 1. CHEST 2 VIEWS. 2. ABDOMEN 2 VIEWS. HISTORY: Thyroid cancer, epigastric pain, chest tumor. COMPARISON: 09/11/2019. FINDINGS: Median sternotomy changes are noted. There are no confluent infiltrates. There is no pneumothorax or pleural effusion. The heart is not enlarged. A calculus is suspected in the right upper pole measuring 4 mm. There are no distended small bowel loops or significant air-fluid levels. There is no pneumoperitoneum. There is gas distally. There is moderately decreased femoral head/neck offset bilaterally, consistent with femoroacetabular impingement. IMPRESSION: 1. No confluent infiltrates. 2. No evidence of obstruction. 3. 4 mm right upper pole renal calculus. Electronically signed by: Janey Lovelace MD (09/29/2019 12:40 AM) [facility] DICTATED AND SIGNED BY: AMBER LOVELACE MD DATE: 09/29/1939 CC: VIGNESH AKINS MD; PCP,NO ~ Course & Med Decision Making: Course & Med Decision Making Pertinent Labs and Imaging studies reviewed. (See chart for details) Patient stay on a clear fluid diet only for the next 48 hours. No solids or milk products. Must allow bowel rest. Push fluids. Take Tylenol and ibuprofen as needed for discomfort. Take Zofran 8 mg up to 4 times a day for active vomiting. Follow-up primary care. Return if any concerns. Self isolate. Avoid contact with others when sick. Wear a mask that covers your nose and mouth and interactions with others. Encourage patient to stop smoking. Follow- up with Dr. Jorgensen. Return if any concerns. Impression: 1. Acute gastroenteritis 2. Mild elevation in creatinine 1.4 3. Mild elevation in CK 508 4. Tobacco use 5. Mild dehydration [] Dragon Disclaimer: Dragon Disclaimer: This electronic medical record was generated, in whole or in part, using a voice recognition dictation system. Departure Departure: Disposition: 01 HOME/RESIDENCE PRIOR TO ADM Condition: STABLE Referrals: RISHI JORGENSEN MD (PCP) Scripts Ondansetron Hcl (ZOFRAN) 8 Mg Tablet 8 MG PO QIDPRN PRN for active vomiting, #30 BOX Prov: VIGNESH AKINS MD 09/29/19 Justification of Admission: Justification of Admission: Justification of Admission Dx: N/A Dragon Disclaimer This chart was dictated in whole or in part using Voice Recognition software in a busy, high-work load, and often noisy Emergency Department environment. It may contain unintended and wholly unrecognized errors or omissions. VIGNESH AKINS MD Sep 28, 2019 22:59
--- NOTE | 2019-09-28 23:27 | EKG ---
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
[2019-09-28] MEDS ORDERED: ONDANSETRON PF 4 MG/2 ML VIAL. IVP ONE (23:30)
[2019-09-28] MEDS ORDERED: FAMOTIDINE 20 MG/2 ML VIAL IVP ONE (23:30)
[2019-09-28] MEDS ORDERED: IV RINGERS SOLUTION,LACTATED 1,000 ML IV SCH (23:30)
[2019-09-28 23:53] LABS: BARBITURATES NEG (NEG); BENZODIAZEPINES POS (NEG); CANNABINOIDS NEG (NEG); COCAINE NEG (NEG); METHADONE NEG (NEG); OPIATES POS (NEG); PHENCYCLIDINE NEG (NEG)
[2019-09-28 23:54] LABS: BACTERIA,URINE 0 /HPF (0-FEW); BILIRUBIN,URINE NEG (NEG); CLARITY,URINE CLEAR; COLOR,URINE YELLOW; GLUCOSE,URINE NEG (NEG); NITRITE,URINE NEG (NEG); RBC,URINE 0 /HPF (0-2); SQUAMOUS EPITHELIAL CELL,UR OCC /LPF; UROBILINOGEN,URINE 0.2 mg/dL (0.2 mg/dL)
[2019-09-28 23:56] LABS: AMPHETAMINE/METHAMPHETAMINE NEG (NEG)
[2019-09-29 00:16] LABS: BASO % 1 % (0-3); EOS # 0.1 x10^3/uL (0.0-0.7); EOS % 2 % (0-3); HEMATOCRIT 43.5 % (39.0-53.0); HEMOGLOBIN 14.7 g/dL (13.0-17.5); LYMPH # 1.9 x10^3/uL (1.0-4.8); LYMPH % 27 % (24-48); MEAN CORPUSCULAR HEMOGLOBIN 32 pg (25-35); MEAN CORPUSCULAR HGB CONC 34 g/dL (31-37); MEAN CORPUSCULAR VOLUME 93 fL (79-100); MONO # 0.4 x10^3/uL (0.0-1.1); MONO % 6 % (0-9); NEUT # 4.8 x10^3uL (1.8-7.7); NEUT % 65 % (31-73); PLATELET COUNT 216 x10^3/uL (140-400); RED BLOOD COUNT 4.67 x10^6/uL (4.30-5.70); WHITE BLOOD COUNT 7.3 x10^3/uL (4.0-11.0)
[2019-09-29 00:27] LABS: CALCIUM 9.5 mg/dL (8.5-10.1); CREATININE 1.4 mg/dL (0.7-1.3); GFR 55.6; POTASSIUM 4.1 mmol/L (3.5-5.1)
[2019-09-29 00:34] LABS: ALBUMIN 4.4 g/dL (3.4-5.0); DIRECT BILIRUBIN 0.1 mg/dL (0.0-0.2); TOTAL BILIRUBIN 0.5 mg/dL (0.2-1.0); TOTAL PROTEIN 7.5 g/dL (6.4-8.2)
--- NOTE | 2019-09-29 00:42 | RAD ---
EXAM: 1. CHEST 2 VIEWS. 2. ABDOMEN 2 VIEWS. HISTORY: Thyroid cancer, epigastric pain, chest tumor. COMPARISON: 09/11/2019. FINDINGS: Median sternotomy changes are noted. There are no confluent infiltrates. There is no pneumothorax or pleural effusion. The heart is not enlarged. A calculus is suspected in the right upper pole measuring 4 mm. There are no distended small bowel loops or significant air-fluid levels. There is no pneumoperitoneum. There is gas distally. There is moderately decreased femoral head/neck offset bilaterally, consistent with femoroacetabular impingement. IMPRESSION: 1. No confluent infiltrates. 2. No evidence of obstruction. 3. 4 mm right upper pole renal calculus. Electronically signed by: Janey Lovelace MD (09/29/2019 12:40 AM) [facility]
[2019-09-29] MEDS ORDERED: ONDA8TAB9 PO (01:03)
== END 2019-09-29 01:10 | disposition home or self-care (01) ==
LOC: ER 22:47
DX: K52.89 Other specified noninfective gastroenteritis and colitis (principal); R79.89 Other specified abnormal findings of blood chemistry; E86.0 Dehydration; E03.9 Hypothyroidism, unspecified; F17.210 Nicotine dependence, cigarettes, uncomplicated; Z87.442 Personal history of urinary calculi; Z88.6 Allergy status to analgesic agent; Z88.8 Allergy status to other drugs, medicaments and biological substances
CPT/HCPCS: 36415; 71046; 74019; 80048; 80076; 80307; 81001; 82550; 83690; 84484; 85025; 85610; 85730; 87086; 93005; 96361; 96374; 96375; 99285; J2405; J3490; J7120

== ENCOUNTER 2019-10-20 22:17 | Emergency (ER) | payer SELFPAY ==
[~2019-10-20] VITALS: Ht 190.5 cm; Wt 87.0 kg
[~2019-10-20 22:17] MED LIST changes: +ONDA8TAB9 PO
--- NOTE | 2019-10-20 22:57 | PHYS DOC ---
Past History Past Medical History: Cancer, Hypothyroid, Kidney Stones Additional Past Medical Histor: THYROID CA WITH THYROID REMOVAL. 2014 Past Surgical History: Other Additional Past Surgical Histo: THYROID, CHEST TUMOR REMOVED Smoking: Cigarettes Alcohol Use: None Drug Use: None General Adult EDM: Chief Complaint: PAIN ON URINATION HPI: HPI: Patient is a 44 year old male who presents with above hx and complaints frequent kidney stones and currently passing stones via his penis. Patient states that the tip of his penis is burning after passage of stone. Patient has history of previous kidney stones x5.. Patient initially described the pain as 10 out of 10 in his penis tip. Patient denies any recent penile discharge other than the passes stones. Patient did require removal of the stone in 2014 surgically. Patient denies any history of STDs. No recent travel or specific ill contacts. Patient does have a history of hypothyroidism. No recent travel outside [facility]. Patient denies any [place] home meds. Patient has been treating current episodes of flank pain with ibuprofen.. Patient normally follows with Dr. Akers. Review of Systems: Review of Systems: Constitutional: Denies fever or chills Eyes: Denies change in visual acuity HENT: Denies nasal congestion or sore throat Respiratory: Denies cough or shortness of breath Cardiovascular: Denies chest pain or edema GI: Denies abdominal pain, nausea, vomiting, bloody stools or diarrhea : Complains of dysuria Musculoskeletal: Denies back pain or joint pain Integument: Denies rash Neurologic: Denies headache, focal weakness or sensory changes Endocrine: Denies polyuria or polydipsia Lymphatic: Denies swollen glands Psychiatric: Denies depression or anxiety Heart Score: Risk Factors: Risk Factors: DM, Current or recent (<one month) smoker, HTN, HLP, family history of CAD, obesity. Risk Scores: Score 0 - 3: 2.5% MACE over next 6 weeks - Discharge Home Score 4 - 6: 20.3% MACE over next 6 weeks - Admit for Clinical Observation Score 7 - 10: 72.7% MACE over next 6 weeks - Early Invasive Strategies Family History: Family History: Noncontributory to presentation Current Medications: Current Meds: See nursing for home meds Allergies: Allergies: Allergies Coded Allergies Type Severity Reaction Last Updated Verified cyclobenzaprine Allergy Unknown 11/28/17 Yes diphenhydramine Allergy Unknown 11/28/17 Yes ketorolac Allergy Unknown Itching 11/28/17 Yes meloxicam Allergy Unknown 11/28/17 Yes tramadol Allergy Unknown 11/28/17 Yes Physical Exam: PE: Constitutional: Moderate acute distress, non-toxic appearance. [] HENT: Normocephalic, atraumatic, bilateral external ears normal, oropharynx moist, no oral exudates, nose normal. [] Eyes: PERRLA, EOMI, conjunctiva normal, no discharge. Glasses Neck: Normal range of motion, no tenderness, supple, no stridor. [] Cardiovascular:Heart rate regular rhythm, no murmur [] Lungs & Thorax: Bilateral breath sounds equal apex with few scattered wheezes on auscultation [] Abdomen: Bowel sounds normal, soft, no tenderness, no masses, no pulsatile masses. Circumcised male. Testicles descended nontender. No penile discharge noted. Skin: Warm, dry, no erythema, no rash. [] Back: No tenderness, no CVA tenderness. [] Extremities: No tenderness, no cyanosis, no clubbing, ROM intact, no edema. [] No psoas sign. Neurologic: Alert and oriented X 3, normal motor function, normal sensory function, no focal deficits noted. [] Psychologic: Affect anxious, judgement normal, mood normal. [] EKG: EKG: [] Radiology/Procedures: Radiology/Procedures: [] Course & Med Decision Making: Course & Med Decision Making Pertinent Labs and Imaging studies reviewed. (See chart for details) Patient continue to push fluids. Take Tylenol and ibuprofen for pain. Patient was given 1 dose of Pyridium here and advised that if it is turning his urine red. Patient follow-up primary care. Patient return if any concerns. Patient follow-up pending urine cultures with his primary. Impression: 1. History of kidney stones 2. Complaints of dysuria and passage of stones from his penis 3. History of hypothyroidism [] Sowmya Disclaimer: Sowmya Disclaimer: This electronic medical record was generated, in whole or in part, using a voice recognition dictation system. Departure Departure: Disposition: 01 HOME/RESIDENCE PRIOR TO ADM Condition: STABLE Referrals: RISHI AKERS MD (PCP) Justification of Admission: Justification of Admission: Justification of Admission Dx: N/A Sowmya Disclaimer This chart was dictated in whole or in part using Voice Recognition software in a busy, high-work load, and often noisy Emergency Department environment. It may contain unintended and wholly unrecognized errors or omissions. VIGNESH AKINS MD Oct 20, 2019 22:57
[2019-10-20 23:33] LABS: BACTERIA,URINE 0 /HPF (0-FEW); BILIRUBIN,URINE NEG (NEG); CLARITY,URINE CLEAR; COLOR,URINE YELLOW; GLUCOSE,URINE NEG (NEG); NITRITE,URINE NEG (NEG); RBC,URINE 0 /HPF (0-2); UROBILINOGEN,URINE 0.2 mg/dL (0.2 mg/dL); WBC,URINE OCC /HPF (0-4)
[2019-10-21] MEDS ORDERED: IV RINGERS SOLUTION,LACTATED 1,000 ML IV ONE (00:30)
[2019-10-21 01:40] VITALS: BP 145/88
[2019-10-21] MEDS ORDERED: PHENAZOPYRIDINE 200 MG TABLET. PO ONE (02:00)
== END 2019-10-21 01:40 | disposition home or self-care (01) ==
LOC: ER 22:17
DX: R30.0 Dysuria (principal); E03.9 Hypothyroidism, unspecified; F17.210 Nicotine dependence, cigarettes, uncomplicated; Z85.9 Personal history of malignant neoplasm, unspecified; Z87.442 Personal history of urinary calculi; Z98.890 Other specified postprocedural states; Z88.8 Allergy status to other drugs, medicaments and biological substances; Z88.6 Allergy status to analgesic agent
CPT/HCPCS: 81001; 99285; J7120